=== PATIENT | female | born 1970 | race Caucasian/White ===

== ENCOUNTER 2019-08-30 14:53 | Outpatient (CLI) | payer MEDICARE, MEDICAID, SELFPAY | END 2019-08-30 14:54 | disposition home or self-care (01) | LOC: RADWPI 08-31 15:17 | PROVIDERS: Family Provider Family Medicine; PCP Family Medicine; Visit Provider Nurse Practitioner | DX: M19.011 Primary osteoarthritis, right shoulder (principal); M25.511 Pain in right shoulder | CPT/HCPCS: 99214 ==

== ENCOUNTER 2019-09-07 13:02 | Outpatient (CLI) | payer MEDICARE, MEDICAID, SELFPAY ==
--- NOTE | 2019-09-07 13:13 | XR_ITS ---
WS: [id number] SHOULDER RIGHT TECHNIQUE: 3 views of the right shoulder CLINICAL INFORMATION: Pain rt. shoulder with movement/ Decreased range of motion COMPARISON: None. FINDINGS: Normal acromioclavicular joint. Normal glenohumeral joint. Acromion is normal in appearance. Normal g lenoid. No evidence of acute fracture dislocation. XR/XR shoulder RT min 2V* [id number] IMPRESSION: Normal right shoulder.
--- NOTE | 2019-09-07 13:21 | MR_ITS ---
WS: [id number] MRI RIGHT SHOULDER NONCONTRAST TECHNIQUE: Sagittal T2, coronal T1, T2 and proton density imaging. Axial gradient PDE imaging. CLINICAL INFORMATION: Pain rt. shoulder with movement/ Decreased range of motion COMPARISON: MRI 5 FINDINGS: Images moderately degraded by patient motion. Moderate degenerative arthritis at the AC joint with ed darien. Mild downsloping of the acromion. Small amount of subacromial/subdeltoid fluid. Tendinopathy in the supraspinatus. Infraspinatus is normal. Normal teres minor. Mild thinning of the subscapularis di stally. No full-thickness rotator cuff tears. Normal biceps labral anchor. Chronic-appearing fraying of the glenoid labrum. Labrum appears grossly intact considering motion artifact Degenerative arthritis and edema at the AC joint is increased since 2016. Otherwise no significant ch anges since the prior MRI. MR/MR shoulder RT wo con* [id number] IMPRESSION: 1. Moderate degenerative arthritis at the AC joint with edema increased since 2016. Small amount of subacromial/subdeltoid fluid. 2. Mild tendinopathy in the distal supraspinatus. 3. Chronic appearing thinning of the subscapularis tendon distally. Rotator cu ff is otherwise intact. 4. Normal biceps tendon in the bicipital groove. 5. Labrum appears grossly intact. 6. Images degraded by patient motion.
== END 2019-09-07 13:03 | disposition home or self-care (01) ==
LOC: RADWPI 13:04
PROVIDERS: Family Provider Family Medicine; PCP Family Medicine; Visit Provider Nurse Practitioner
DX: M19.011 Primary osteoarthritis, right shoulder (principal); M25.511 Pain in right shoulder
CPT/HCPCS: 73030; 73221

== ENCOUNTER → 2019-10-25 09:30 | Outpatient (BNVA) | payer MEDICARE, MEDICAID, SELFPAY | PROVIDERS: Family Provider Family Medicine; PCP Family Medicine; Visit Provider Nurse Practitioner | DX: G89.29 Other chronic pain (principal); M54.16 Radiculopathy, lumbar region; M48.061 Spinal stenosis, lumbar region without neurogenic claudication; G25.81 Restless legs syndrome; M25.511 Pain in right shoulder; F17.210 Nicotine dependence, cigarettes, uncomplicated; Z79.891 Long term (current) use of opiate analgesic; Z71.6 Tobacco abuse counseling | CPT/HCPCS: 99214 ==

== ENCOUNTER 2019-11-07 08:18 | Outpatient (CLI) | payer MEDICARE, MEDICAID, SELFPAY ==
--- NOTE | 2019-11-07 08:42 | MM_ITS ---
WS: [id number] BILATERAL DIGITAL SCREENING MAMMOGRAPHY WITH CAD CLINICAL INFORMATION: SCREENING HISTORY: Screening mammogram. No current complaints. COMPARISON: November 29, 2014 TECHNIQUE: Bilateral CC and MLO views. FINDINGS: Scattered fibroglandular densities bilaterally. Lucent centered calcifications. Punctate calcificatio ns. No suspicious focal mass, asymmetry, calcifications, or architectural distortion. No evidence of malignancy. MM/[place] [id number] IMPRESSION: BI-RADS: 2-Benign FOLLOW UP: 1 Year Follow-up Recommend return to annual screening mammography.
== END 2019-11-07 08:19 | disposition home or self-care (01) ==
LOC: RADSHAW 08:19
PROVIDERS: Family Provider Family Medicine; PCP Family Medicine; Visit Provider Family Medicine
DX: Z12.31 Encounter for screening mammogram for malignant neoplasm of breast (principal)
CPT/HCPCS: 77067

== ENCOUNTER → 2019-11-13 13:24 | Outpatient (BNVA) | payer MEDICARE, MEDICAID, SELFPAY | PROVIDERS: Family Provider Family Medicine; PCP Family Medicine; Visit Provider Nurse Practitioner | DX: F41.1 Generalized anxiety disorder (principal); F33.41 Major depressive disorder, recurrent, in partial remission | CPT/HCPCS: 99213 ==

== ENCOUNTER 2019-12-27 22:17 | Emergency (ER) | payer MEDICARE, MEDICAID, SELFPAY ==
[2019-12-27 22:33] VITALS: BP 185/75; PULSE 81; RESP 18; TEMP 35.6; O2SAT 98; BMI 38.8
--- NOTE | 2019-12-27 22:42 | ED_ITS ---
HPI - Allergic Reaction General: Chief complaint: Allergic Reaction Stated complaint: rash Time Seen by Provider: 12/27/19 22:36 History of Present Illness: HPI narrative: Patient is a 49-year-old female comes to the ED with a rash. Patient states that yesterday she used a new tanning lotion. After applying tanning lotion she broke out in hives and has an itchy rash. Rash is only on areas of the skin that she placed tanning lotion on. The areas that are affected by the rash are right and left upper and lower extremities and including the hands. Denies any lip or tongue swelling or shortness of breath and scratchy throat or throat swelling. Associated symptoms: Deny abdominal pain, nausea or vomiting Review of Systems Const: Denies: fever, chills or fatigue Eyes: Denies: change in vision or eye discomfort ENMT: Denies: throat pain, painful swallowing, nasal discharge or nasal congestion Card: Denies: chest pain, palpitations, edema, swelling of feet/ankles, shortness of breath on exertion or shortness of breath when lying down Resp: Denies: shortness of breath, productive cough or non-productive cough GI: Denies: abdominal pain, nausea, vomiting, diarrhea, constipation or blood in stool : Denies: flank pain, painful urination or blood in urine Musc: Denies: neck pain, back pain or extremity swelling Skin/Breast: Reports: rash (R & L upper and lower extremities. including the hands.) and itching; Denies: new lesion Neuro: Denies: headache, numbness in extremities or weakness in extremities [facility] ED PFSH: Medical History Arthritis Bilateral chronic knee pain Cervical disc disease Cervical radiculopathy Chronic lumbosacral pain DDD (degenerative disc disease), lumbar Encounter for long-term use of opiate analgesic Generalized anxiety disorder Localized pain of right shoulder joint Long-term use of high-risk medication Lumbar foraminal stenosis Lumbar radiculitis Major depressive disorder, recurrent, in partial remission Morbid obesity Neural foraminal stenosis of cervical spine Opioid contract exists Paresthesia and pain of both upper extremities Restless legs syndrome Risk for falls Smoker Spondylolisthesis, acquired Surgical History Hx of removal of cyst RIGHT HIP/ DR PINEDA S/P carpal tunnel release S/P cholecystectomy LAPAROSCOPIC 2010 S/P decompression of ulnar nerve DR PAUL 2008? LEFT SIDE S/P partial hysterectomy CANCER S/P shoulder surgery RIGHT Status post craniotomy 2003- SMALL TUMOR REMOVAL / DR PAUL Family History Family/Other Lung disease ASTHMA Other Anemia Clotting disorder Diabetes Heart disease Hypertension Kidney disease Stroke Denies family history of Anesthesia complication Bleeding disorder Social History Smoking and tobacco status: current every day smoker cigarettes [ Other cigarette details: 08/24 ppd ] Smoking risk assessment/counseling performed?: Yes Tobacco counseling given: counseling >3 minutes Alcohol intake: never Physical Exam Const: COMMON NORMALS: oriented x3 HENMT: COMMON NORMALS: normocephalic HEAD & SCALP: normocephalic MOUTH: oral and palatal mucosa normal THROAT: posterior oropharynx normal and uvula midline Neck/C-Spine: COMMON NORMALS: supple GENERAL: Yes normal visual inspection Resp: COMMON NORMALS: normal respiratory effort, no retractions, no use of accessory muscles and clear to auscultation bilaterally AUSCULTATION: clear to auscultation bilaterally Cardio: COMMON NORMALS: regular rate, regular rhythm, S1 normal heart sound, S2 normal heart sound, no gallops, no clicks, no murmurs and peripheral pulses 2+ throughout RATE: regular rate RHYTHM: regular rhythm HEART SOUNDS: S1 normal and S2 normal PERIPHERAL PULSES: pulses 2+ throughout GI: COMMON NORMALS: normal to inspection, nondistended, normoactive bowel sounds, soft to palpation, non-tender and no masses PALPATION: Yes soft : COMMON NORMALS: Yes no CVA tenderness BLADDER/KIDNEY EXAM: Yes no CVA tenderness Back/Pelvis: COMMON NORMALS: no CVA tenderness Extremity: NARRATIVE EXTREMITY EXAM: Patient is a 49-year-old female that has pruritic rash on both right and left upper and lower extremities. Neuro: COMMON NORMALS: oriented x3 and moves all extremities Skin: RASHES: rashes noted (Hives) Hives Rash type: Yes macule Rash location: Right and Left Upper and Lower extremities. Also on both hands. Rash distribution: Yes asymmetrical and Yes exposed areas (rash on areas pt applied new tanning lotion) Rash color: Yes red Rash surface: Yes dry and Yes raised Rash border: Yes indistinct Rash tenderness: Yes nontender Rash findings consistent with: Yes hives Course 2 Vital Signs: Vital signs: Vital Signs Temperature 96.0 F L 12/27/19 22:33 Pulse Rate 63 12/28/19 00:15 Respiratory Rate 16 12/28/19 00:15 Blood Pressure 159/84 12/28/19 00:15 Pulse Oximetry 100 12/28/19 00:15 MDM - Allergic Reaction MDM Narrative: Medical decision making narrative: Patient is a 49-year-old female comes to the ED with hives. Patient says she has sensitive skin and used in tanning lotion that she has never used before and after applying lotion those areas broke out in pruritic hives. Patient had no lip, tongue or throat swelling or trouble breathing. Patient was given hydroxyzine p.o. and dexamethasone IM to help with rash while here in the ED. Patient was discharged and told to continue taking Zyrtec during the day and I also provided her prescription for prednisone. Patient was told to follow-up with PCP in 7 days for reevaluation. I informed her not to use that tanning lotion again. Patient understood and agreed with plan. Discharge Plan Discharge Patient Disposition: Home, Self-Care Clinical Impression: Hives Condition: Stable Prescriptions: New prednisone 50 mg tablet 50 mg PO DAILY 3 Days Qty: 3 RF: 0 No Action fluticasone propion-salmeterol [Advair Diskus] 100-50 mcg/dose blister with device 1 puff INHALATION BID RF: 0 Prilosec OTC 20 mg tablet,delayed release (DR/EC) 20 mg PO BID RF: 0 metoprolol succinate 50 mg tablet extended release 24 hr 50 mg PO BID RF: 0 lisinopril-hydrochlorothiazide 20-12.5 mg tablet 1 tab PO DAILY RF: 0 cetirizine 10 mg tablet 10 mg PO DAILY RF: 0 epinephrine [EpiPen 2-Boo] 0.3 mg/0.3 mL auto-injector 0.3 mg IM ONCE PRN (Reason: Allergic Reaction) RF: 0 diphenhydramine HCl [Benadryl Allergy] 25 mg tablet 25 mg PO . NEEDED RF: 0 docusate sodium [Stool Softener] 100 mg capsule 100 mg PO . NEEDED RF: 0 Multiple Vitamin, Womens Tablet 1 tab PO DAILY RF: 0 nitroglycerin 0.4 mg tablet, sublingual 0.4 mg SUBLINGUAL Q5M PRN (Reason: Chest Pain) RF: 0 albuterol sulfate [Ventolin HFA] 90 mcg/actuation HFA aerosol inhaler 1 puff INHALATION ONCE PRN (Reason: Shortness Of Breath) RF: 0 Victoza 2-Boo 0.6 mg/0.1 mL (18 mg/3 mL) pen injector 0.6 mg SUBCUT DIRECTED RF: 0 metformin 500 mg tablet 1,000 mg PO DAILY RF: 0 rosuvastatin [Crestor] 40 mg tablet 40 mg PO .HS RF: 0 Incruse Ellipta 62.5 mcg/actuation blister with device 1 inh INHALATION Q24H RF: 0 oxycodone 10 mg tablet 10 mg PO Q4H PRN (Reason: pain) 30 Days Qty: 180 RF: 0 Hold Instructions: Home Medication placed on hold at Doctor's office gabapentin 300 mg capsule 300 mg PO TID MDD 3 Qty: 90 RF: 1 oxycodone 10 mg tablet 10 mg PO .6 times a day PRN (Reason: pain) 30 Days Qty: 180 RF: 0 desvenlafaxine succinate [Pristiq] 100 mg tablet extended release 24 hr 200 mg PO DAILY Qty: 60 RF: 2 Mirapex 0.75 mg tablet 0.75 mg PO .at bedtime RF: 0 Discharge Orders: Discharge Order (Routine); Ordered 12/27/19 Ordered By: Zoltan Solorzano Referrals: Roe Shoemaker MD [Primary Care Provider] - Discharge Diet: Regular Discharge Activity: Resume usual activity Patient Instructions: Urticaria (ED) Activity Restrictions/Additional Instructions: Follow-up with your PCP in the next 7 to 10 days for reevaluation. Continue taking all your previously prescribed home meds. Continue taking your Zyrtec daily and this should also help with rash and itching. Take prednisone as prescribed to help with rash. Avoid using lotion product that caused reaction. Discharge Date/Time: 12/28/19 00:17 Coding Level of Care Code ED Pressure Dispatcher for Melvig Fwd Exam Comprehensive
[2019-12-27] MEDS: hyDROXYzine 25 mg Capsule 50 MG PO (23:08)
--- NOTE | 2019-12-27 23:20 | PC.NURSE ---
care and report given to Zoltan ARIZAlost charge card clerk
[2019-12-28] MEDS: dexamethasone 10 mg/mL INJ IM (00:05)
[2019-12-28 00:15] VITALS: BP 159/84; PULSE 63; RESP 16; O2SAT 100
== END 2019-12-28 00:17 | disposition home or self-care (01) ==
PROVIDERS: Emergency Provider Physician Assistant; PCP Family Medicine
DX: L50.9 Urticaria, unspecified (principal); F17.210 Nicotine dependence, cigarettes, uncomplicated
CPT/HCPCS: 12345; 96372; 99282; 99283; J1100

== ENCOUNTER → 2020-01-26 11:18 | Outpatient (BNVA) | payer MEDICARE, MEDICAID, SELFPAY | PROVIDERS: PCP Family Medicine; Visit Provider Anesthesiology | DX: G89.29 Other chronic pain (principal); M48.061 Spinal stenosis, lumbar region without neurogenic claudication; M54.16 Radiculopathy, lumbar region; M51.36 Other intervertebral disc degeneration, lumbar region; M54.12 Radiculopathy, cervical region; M50.90 Cervical disc disorder, unspecified, unspecified cervical region; M99.81 Other biomechanical lesions of cervical region; M43.10 Spondylolisthesis, site unspecified; M19.90 Unspecified osteoarthritis, unspecified site; F17.210 Nicotine dependence, cigarettes, uncomplicated; Z79.891 Long term (current) use of opiate analgesic; Z71.6 Tobacco abuse counseling | CPT/HCPCS: 99214 ==

== ENCOUNTER → 2020-02-05 07:36 | Outpatient (BNVA) | payer MEDICARE, MEDICAID, SELFPAY | PROVIDERS: PCP Family Medicine; Visit Provider Nurse Practitioner | DX: F33.41 Major depressive disorder, recurrent, in partial remission (principal); F41.1 Generalized anxiety disorder | CPT/HCPCS: 99213 ==

== ENCOUNTER → 2020-04-04 09:36 | Outpatient (BNVA) | payer MEDICARE, MEDICAID, SELFPAY | PROVIDERS: PCP Family Medicine; Visit Provider Nurse Practitioner | DX: G89.29 Other chronic pain (principal); M54.42 Lumbago with sciatica, left side; M54.41 Lumbago with sciatica, right side; M48.061 Spinal stenosis, lumbar region without neurogenic claudication; M54.16 Radiculopathy, lumbar region; M70.62 Trochanteric bursitis, left hip; Y93.9 Activity, unspecified; G25.81 Restless legs syndrome; F17.210 Nicotine dependence, cigarettes, uncomplicated; Z79.891 Long term (current) use of opiate analgesic | CPT/HCPCS: 99213; 99214 ==

== ENCOUNTER → 2020-05-30 09:06 | Outpatient (BNVA) | payer MEDICARE, MEDICAID, SELFPAY | PROVIDERS: PCP Family Medicine; Visit Provider Anesthesiology | DX: G89.29 Other chronic pain (principal); M51.36 Other intervertebral disc degeneration, lumbar region; M48.061 Spinal stenosis, lumbar region without neurogenic claudication; M54.16 Radiculopathy, lumbar region; M70.62 Trochanteric bursitis, left hip; Y93.9 Activity, unspecified; M50.90 Cervical disc disorder, unspecified, unspecified cervical region; M54.12 Radiculopathy, cervical region; M43.10 Spondylolisthesis, site unspecified; M99.81 Other biomechanical lesions of cervical region; G25.81 Restless legs syndrome; F17.210 Nicotine dependence, cigarettes, uncomplicated; Z79.891 Long term (current) use of opiate analgesic | CPT/HCPCS: 99214 ==

== ENCOUNTER → 2020-06-21 07:32 | Outpatient (BNVA) | payer MEDICARE, MEDICAID, SELFPAY | PROVIDERS: PCP Family Medicine; Visit Provider Nurse Practitioner | DX: F33.41 Major depressive disorder, recurrent, in partial remission (principal); F41.1 Generalized anxiety disorder | CPT/HCPCS: 99213 ==

== ENCOUNTER → 2020-07-24 13:53 | Outpatient (BNVA) | payer MEDICARE, MEDICAID, SELFPAY | PROVIDERS: PCP Family Medicine; Visit Provider Anesthesiology | DX: G89.29 Other chronic pain (principal); M48.061 Spinal stenosis, lumbar region without neurogenic claudication; M54.16 Radiculopathy, lumbar region; M70.62 Trochanteric bursitis, left hip; G25.81 Restless legs syndrome; M50.90 Cervical disc disorder, unspecified, unspecified cervical region; M54.12 Radiculopathy, cervical region; M51.36 Other intervertebral disc degeneration, lumbar region; M99.81 Other biomechanical lesions of cervical region; Y93.9 Activity, unspecified; Z71.6 Tobacco abuse counseling; F17.210 Nicotine dependence, cigarettes, uncomplicated | CPT/HCPCS: 99214 ==

== ENCOUNTER → 2020-09-17 08:31 | Outpatient (BNVA) | payer MEDICARE, MEDICAID, SELFPAY | PROVIDERS: PCP Family Medicine; Visit Provider Nurse Practitioner | DX: F33.41 Major depressive disorder, recurrent, in partial remission (principal); F41.1 Generalized anxiety disorder | CPT/HCPCS: 99214 ==

== ENCOUNTER → 2020-09-24 09:50 | Outpatient (BNVA) | payer MEDICARE, MEDICAID, SELFPAY | PROVIDERS: PCP Family Medicine; Visit Provider Anesthesiology | DX: G89.29 Other chronic pain (principal); M48.061 Spinal stenosis, lumbar region without neurogenic claudication; M51.36 Other intervertebral disc degeneration, lumbar region; M54.16 Radiculopathy, lumbar region; G25.81 Restless legs syndrome; M70.62 Trochanteric bursitis, left hip; M25.561 Pain in right knee; M25.562 Pain in left knee; M50.90 Cervical disc disorder, unspecified, unspecified cervical region; M54.12 Radiculopathy, cervical region; Y93.9 Activity, unspecified | CPT/HCPCS: 99213 ==

== ENCOUNTER 2020-11-03 20:33 | Emergency (ER) | payer MEDICARE, MEDICAID, SELFPAY ==
[2020-11-03 20:41] VITALS: BP 158/86; PULSE 70; RESP 18; TEMP 36.8; O2SAT 98; BMI 37.3
--- NOTE | 2020-11-03 21:14 | XR_ITS ---
WS: [id number] [place] [id number] REASON FOR EXAM: fall injury FINDINGS: The examination is unchanged compared to previous examination 09/07/2019. No fracture or dislocation. Mild degenerative arthropathy in the acromioclavicular and glenohumeral joint. No soft tissue abnormality. Deformity of the lateral right second rib likely old healed fracture. XR/[place] [id number] IMPRESSION: No acute abnormality
--- NOTE | 2020-11-03 21:14 | XR_ITS ---
WS: [id number] XR shoulder RT min 2V* [id number] REASON FOR EXAM: fall injury FINDINGS: Examination unchanged compared to previous study 09/07/2019. No fracture or dislocation. Mild degenerative arthropathy in the glenohumeral and acromioclavicular joint. Deformity of the lateral right second rib compatible with old healed fracture. No soft tissue abnormality. XR/XR shoulder RT min 2V* [id number] IMPRESSION: No acute abnormality.
--- NOTE | 2020-11-03 21:15 | W.ED.FALL ---
HPI - Fall General: Chief Complaint: Fall Stated Complaint: Fall, injury to right shoulder/arm Time Seen by Provider: 11/03/20 21:08 Source: patient Mode of arrival: ambulatory Limitations: no limitations History of Present Illness: HPI Narrative: Patient tripped and fell landing against a handrail striking her right shoulder clavicle area. Patient has significant pain and discomfort to the right shoulder area. Patient denies any other concerns. Patient does have an abrasion to the left knee with some mild ecchymosis. Patient reports she was weightbearing and denies any pain or discomfort. Patient appears well. Patient has some chronic medical history including diabetes, depression, chronic pain syndrome. MD complaint: fall Place fall occurred: home Location of injury - extremities: Right: shoulder Severity: moderate Severity scale (1-10): 8 Review of Systems General: Reports: 10 or more systems reviewed and unremarkable except in HPI and below Musc: Reports: other (Right shoulder pain) [facility] ED PFSH: Medical History (Updated 11/03/20 @ 22:03 by DEEP Rosenberg) Arthritis Bilateral chronic knee pain Cervical disc disease Cervical radiculopathy Chronic lumbosacral pain DDD (degenerative disc disease), lumbar Encounter for long-term use of opiate analgesic Generalized anxiety disorder Localized pain of right shoulder joint Long-term use of high-risk medication Lumbar foraminal stenosis Lumbar radiculitis Major depressive disorder, recurrent, in partial remission Morbid obesity Neural foraminal stenosis of cervical spine Opioid contract exists Paresthesia and pain of both upper extremities Restless legs syndrome Risk for falls Smoker Spondylolisthesis, acquired Surgical History Hx of removal of cyst RIGHT HIP/ DR PINEDA S/P carpal tunnel release S/P cholecystectomy LAPAROSCOPIC 2010 S/P decompression of ulnar nerve DR PAUL 2008? LEFT SIDE S/P partial hysterectomy CANCER S/P shoulder surgery RIGHT Status post craniotomy 2003- SMALL TUMOR REMOVAL / DR PAUL Family History Family/Other Lung disease ASTHMA Other Anemia Clotting disorder Diabetes Heart disease Hypertension Kidney disease Stroke Denies family history of Anesthesia complication Bleeding disorder Social History (Updated 07/24/20 @ 15:13 by Poonam King LPN) Smoking and tobacco status: current every day smoker cigarettes [ Other cigarette details: 08/24 ppd ] Smoking risk assessment/counseling performed?: Yes Tobacco counseling given: counseling >3 minutes Alcohol intake: never History of recent travel: No Physical Exam Const: COMMON NORMALS: no acute distress and patient oriented x3 GENERAL APPEARANCE: cooperative HENMT: COMMON NORMALS: normocephalic and Normal external nose present HEAD & SCALP: normal to inspection and normocephalic NOSE: Normal external nose present MOUTH: Normal oral and palatal mucosa present Eye: GENERAL EYE: appearance normal, both eyes and all related structures Neck/C-Spine: COMMON NORMALS: full ROM Chest: COMMONS NORMALS: normal inspection of the chest Resp: COMMON NORMALS: normal respiratory effort EFFORT & INSPECTION: Yes able to speak in complete sentences Cardio: COMMON NORMALS: regular rate and regular rhythm RATE: regular rate RHYTHM: regular rhythm GI: COMMON NORMALS: non-tender Back/Pelvis: COMMON NORMALS: thoracic and lumbar spine normal to inspection Extremity: COMMON NORMALS: normal to inspection NARRATIVE EXTREMITY EXAM: Tenderness to the right clavicle, no obvious deformity, distal pulses and sensation is intact. Neuro: COMMON NORMALS: patient oriented x3 and moves all extremities Psych: COMMON NORMALS: mental status grossly normal and cooperative Skin: COMMON NORMALS: no rashes or lesions noted GENERAL SKIN EXAM: no rashes or lesions noted Course Vital Signs: Vital signs: Vital Signs Temperature 98.2 F 11/03/20 20:41 Pulse Rate 70 11/03/20 20:41 Respiratory Rate 18 11/03/20 20:41 Blood Pressure 158/86 11/03/20 20:41 Pulse Oximetry 98 11/03/20 20:41 MDM - Fall MDM Narrative: Medical decision making narrative: Patient comes in for evaluation of her right shoulder. Patient reports tripping and falling against a handrail. Patient has significant tenderness to the right anterior shoulder. No obvious deformity is noted. Distal pulses are intact. Patient is very guarded with movement. Also has noted an abrasion to the left knee with some mild ecchymosis and swelling. Patient is weightbearing. Patient appears well. Differential diagnosis includes fracture, sprain, contusion, dislocation. X-ray noted no obvious dislocation or fracture. Reviewed exam with patient with recommendations for treatment and follow-up. Patient was given 1 hydrocodone for her pain on initial evaluation. Patient reported understanding of care plan and need for follow-up or return to the ER. Discharge Plan Discharge Patient Disposition: Home Clinical Impression: Fall from slip, trip, or stumble Qualifiers: Encounter type: initial encounter Qualified Code(s): W01.0XXA - Fall on same level from slipping, tripping and stumbling without subsequent striking against object, initial encounter Contusion of right shoulder Qualifiers: Encounter type: initial encounter Qualified Code(s): S40.011A - Contusion of right shoulder, initial encounter Condition: Stable Prescriptions: No Action Prilosec OTC 20 mg tablet,delayed release (DR/EC) 20 mg PO BID RF: 0 metoprolol succinate 50 mg tablet extended release 24 hr 50 mg PO BID RF: 0 lisinopril-hydrochlorothiazide 20-12.5 mg tablet 1 tab PO DAILY RF: 0 cetirizine 10 mg tablet 10 mg PO DAILY RF: 0 epinephrine [EpiPen 2-Boo] 0.3 mg/0.3 mL auto-injector 0.3 mg IM ONCE PRN (Reason: Allergic Reaction) RF: 0 diphenhydramine HCl [Benadryl Allergy] 25 mg tablet 25 mg PO . NEEDED RF: 0 docusate sodium [Stool Softener] 100 mg capsule 100 mg PO . NEEDED RF: 0 Multiple Vitamin, Womens Tablet 1 tab PO DAILY RF: 0 nitroglycerin 0.4 mg tablet, sublingual 0.4 mg SUBLINGUAL Q5M PRN (Reason: Chest Pain) RF: 0 albuterol sulfate [Ventolin HFA] 90 mcg/actuation HFA aerosol inhaler 1 puff INHALATION ONCE PRN (Reason: Shortness Of Breath) RF: 0 Victoza 2-Boo 0.6 mg/0.1 mL (18 mg/3 mL) pen injector 0.6 mg SUBCUT DIRECTED RF: 0 metformin 500 mg tablet 1,000 mg PO DAILY RF: 0 rosuvastatin [Crestor] 40 mg tablet 40 mg PO .HS RF: 0 Incruse Ellipta 62.5 mcg/actuation blister with device 1 inh INHALATION Q24H RF: 0 oxycodone 10 mg tablet 10 mg PO Q4H PRN (Reason: pain) 30 Days Qty: 180 RF: 0 Hold Instructions: Home Medication placed on hold at Doctor's office glimepiride 4 mg tablet 4 mg PO DAILY RF: 0 desvenlafaxine succinate [Pristiq] 100 mg tablet extended release 24 hr 200 mg PO DAILY Qty: 180 RF: 0 gabapentin 300 mg capsule 300 mg PO TID MDD 3 Qty: 90 RF: 1 naproxen [EC-Naproxen] 500 mg tablet,delayed release (DR/EC) 500 mg PO BID Qty: 60 RF: 1 oxycodone 10 mg tablet 10 mg PO .6 times a day PRN (Reason: pain) 30 Days Qty: 180 RF: 0 oxycodone 10 mg tablet 10 mg PO .6 times a day PRN (Reason: pain) 30 Days Qty: 180 RF: 0 Mirapex 0.75 mg tablet 0.75 mg PO .at bedtime Qty: 30 RF: 1 Discharge Orders: Discharge ED (Routine); Ordered 11/03/20 Ordered By: Srinivas Le Referrals: Roe Shoemaker MD [Primary Care Provider] - Patient Instructions: Shoulder Sprain (ED), Opioid Safety Activity Restrictions/Additional Instructions: Activity as tolerated. Gentle range of motion exercises. Use acetaminophen or ibuprofen for further pain relief. Continue with routine medications as directed. Use ice packs to the area for further pain control. Follow-up with primary care for further instructions and recommendations. Return to the emergency department for new concerns. Coding Level of Care Code ED Assessment Technician for Armin Fwemil Exam Comprehensive
[2020-11-03] MEDS: HYDROcodone-acetaminophen 7.5-325 mg Tablet 1 TAB PO (21:34)
== END 2020-11-03 22:23 | disposition home or self-care (01) ==
PROVIDERS: Emergency Provider Nurse Practitioner Family; PCP Family Medicine
DX: S40.011A Contusion of right shoulder, initial encounter (principal); W01.198A Fall on same level from slipping, tripping and stumbling with subsequent striking against other object, initial encounter; F17.210 Nicotine dependence, cigarettes, uncomplicated
CPT/HCPCS: 73000; 73030; 99283

== ENCOUNTER → 2020-11-19 10:59 | Outpatient (BNVA) | payer MEDICARE, MEDICAID, SELFPAY | PROVIDERS: PCP Family Medicine; Visit Provider Anesthesiology | DX: G89.29 Other chronic pain (principal); M48.061 Spinal stenosis, lumbar region without neurogenic claudication; M54.16 Radiculopathy, lumbar region; M51.36 Other intervertebral disc degeneration, lumbar region; M70.62 Trochanteric bursitis, left hip; G25.81 Restless legs syndrome; M50.90 Cervical disc disorder, unspecified, unspecified cervical region; M54.12 Radiculopathy, cervical region; M99.81 Other biomechanical lesions of cervical region; F17.210 Nicotine dependence, cigarettes, uncomplicated; Z79.891 Long term (current) use of opiate analgesic; Y93.9 Activity, unspecified | CPT/HCPCS: 99214 ==

== ENCOUNTER → 2021-01-31 09:56 | Outpatient (BNVA) | payer MEDICARE, MEDICAID, SELFPAY | PROVIDERS: PCP Family Medicine; Visit Provider Anesthesiology | DX: G89.29 Other chronic pain (principal); M48.061 Spinal stenosis, lumbar region without neurogenic claudication; M54.16 Radiculopathy, lumbar region; M51.36 Other intervertebral disc degeneration, lumbar region; M50.90 Cervical disc disorder, unspecified, unspecified cervical region; M54.12 Radiculopathy, cervical region; M99.81 Other biomechanical lesions of cervical region; G25.81 Restless legs syndrome; F17.210 Nicotine dependence, cigarettes, uncomplicated; Z79.899 Other long term (current) drug therapy; Z71.6 Tobacco abuse counseling | CPT/HCPCS: 99214 ==

== ENCOUNTER 2021-02-06 15:01 | Outpatient (CLI) | payer MEDICARE, MEDICAID, SELFPAY ==
--- NOTE | 2021-02-06 15:12 | MM_ITS ---
WS: [id number] BILATERAL DIGITAL SCREENING MAMMOGRAPHY WITH CAD CLINICAL INFORMATION: SCREEN HISTORY: Screening mammogram. Palpable lump right breast COMPARISON: November 07, 2019 TECHNIQUE: Bilateral CC and MLO views. FINDINGS: Scattered fibroglandular densities bilaterally. Palpable marker upper inner right breast. No definite underlying mammographic abnormality. Recommend right diagnostic mammography and ultrasound in furthe r evaluation. Left breast appears unremarkable and unchanged. Punctate and lucent centered calcifications. A few in cidental intramammary lymph nodes. MM/[place] [id number] IMPRESSION: BI-RADS: 0-Incomplete: Need additional imaging evaluation FOLLOW UP: Need Additional Imaging PATIENT REPORTS NEW PALPABLE LUMP UPPER INNER RIGHT BREAST. RECOMMEND RIGHT RONA GNOSTIC MAMMOGRAPHY AND ULTRASOUND FOR FURTHER EVALUATION.
== END 2021-02-06 15:02 | disposition home or self-care (01) ==
LOC: RADSHAW 15:07
PROVIDERS: PCP Family Medicine; Visit Provider Family Medicine
DX: Z12.31 Encounter for screening mammogram for malignant neoplasm of breast (principal)
CPT/HCPCS: 77067

== ENCOUNTER → 2021-04-04 09:32 | Outpatient (BNVA) | payer MEDICARE, MEDICAID, SELFPAY | PROVIDERS: PCP Family Medicine; Visit Provider Anesthesiology | DX: G89.29 Other chronic pain (principal); M48.061 Spinal stenosis, lumbar region without neurogenic claudication; M54.16 Radiculopathy, lumbar region; M51.36 Other intervertebral disc degeneration, lumbar region; M50.90 Cervical disc disorder, unspecified, unspecified cervical region; M54.12 Radiculopathy, cervical region; G25.81 Restless legs syndrome; M43.10 Spondylolisthesis, site unspecified; F17.210 Nicotine dependence, cigarettes, uncomplicated; Z79.891 Long term (current) use of opiate analgesic | CPT/HCPCS: 99214 ==

== ENCOUNTER → 2021-05-30 09:27 | Outpatient (BNVA) | payer MEDICARE, MEDICAID, SELFPAY | PROVIDERS: PCP Family Medicine; Visit Provider Anesthesiology | DX: G89.29 Other chronic pain (principal); M48.061 Spinal stenosis, lumbar region without neurogenic claudication; M54.16 Radiculopathy, lumbar region; M51.36 Other intervertebral disc degeneration, lumbar region; M50.90 Cervical disc disorder, unspecified, unspecified cervical region; M54.12 Radiculopathy, cervical region; M43.10 Spondylolisthesis, site unspecified; M19.90 Unspecified osteoarthritis, unspecified site; F17.210 Nicotine dependence, cigarettes, uncomplicated; Z79.891 Long term (current) use of opiate analgesic | CPT/HCPCS: 99214 ==

== ENCOUNTER 2021-06-13 14:51 | Outpatient (CLI) | payer MEDICARE, MEDICAID, SELFPAY ==
--- NOTE | 2021-06-13 14:58 | MR_ITS ---
WS: [id number] MRI RIGHT SHOULDER NONCONTRAST TECHNIQUE: Sagittal T2, coronal T1, T2 and proton density imaging. Axial gradient PDE imaging. CLINICAL INFORMATION: FROZEN SHOULDER COMPARISON: MRI September 07, 2019 FINDINGS: Moderate degenerative arthritis AC joint with hypertrophic changes. Mild downsloping of the acromion with slight subacromial spurring. Small amount of subacromial/subdeltoid fluid. Mild tendinopathy in the distal supraspinatus. Normal infraspinatus. Normal teres minor. Subscapularis is normal. Normal biceps tendon in the bicipital groove. Degenerative fraying of the glenoid labrum. Normal bone marrow signal in the glenoid and humerus. Visually diminutive joint capsule with mild synovial thickening along the axillary recess. Increased T2 signal abnormality along the rotator interval. Findings can be seen with adhesive capsulitis in ap propriate clinical setting. MR/MR shoulder RT wo con* [id number] IMPRESSION: 1. Moderate degenerative arthritis AC joint with mild downsloping of the acrom ion. Small amount of subacromial/subdeltoid fluid. 2. Mild tendinopathy in the distal supraspinatus. Rotator cuff is otherwise un remarkable. 3. No high-grade rotator cuff tears. 4. Normal biceps tendon in the bicipital groove. 5. Visually diminutive joint capsule with mild synovial thickening along the a xillary recess. Increased T2 signal abnormality along the rotator interval. Fin dings can be seen with adhesive capsulitis in appropriate clinical setting.
== END 2021-06-13 14:52 | disposition home or self-care (01) ==
PROVIDERS: PCP Family Medicine; Visit Provider Family Medicine
DX: M75.01 Adhesive capsulitis of right shoulder (principal); M19.011 Primary osteoarthritis, right shoulder
CPT/HCPCS: 73221

== ENCOUNTER → 2021-07-29 12:13 | Outpatient (BNVA) | payer MEDICARE, MEDICAID, SELFPAY | PROVIDERS: PCP Family Medicine; Visit Provider Nurse Practitioner | DX: F33.41 Major depressive disorder, recurrent, in partial remission (principal); F41.1 Generalized anxiety disorder | CPT/HCPCS: 99214 ==

== ENCOUNTER → 2021-08-27 10:51 | Outpatient (BNVA) | payer MEDICARE, MEDICAID, SELFPAY | PROVIDERS: PCP Family Medicine; Visit Provider Anesthesiology | DX: G89.29 Other chronic pain (principal); M48.061 Spinal stenosis, lumbar region without neurogenic claudication; M54.16 Radiculopathy, lumbar region; M51.36 Other intervertebral disc degeneration, lumbar region; M54.12 Radiculopathy, cervical region; M50.90 Cervical disc disorder, unspecified, unspecified cervical region; G25.81 Restless legs syndrome; M43.10 Spondylolisthesis, site unspecified; F17.200 Nicotine dependence, unspecified, uncomplicated; Z79.899 Other long term (current) drug therapy; Z79.891 Long term (current) use of opiate analgesic | CPT/HCPCS: 99214 ==

== ENCOUNTER 2021-09-05 09:20 | Outpatient (CLI) | payer MEDICARE, MEDICAID, SELFPAY ==
--- NOTE | 2021-09-05 09:24 | CT_ITS ---
WS: [id number] LDCT LUNG CANCER SCREENING TECHNIQUE: Noncontrast CT of the chest with coronal and sagittal reformatted images. CLINICAL INFORMATION: NICOTINE DEPENDENCE, CIGARETTES COMPARISON: None. DLP: 49.04 mGy.cm DIvol: 1.[address] scans at [facility] use at least one of these dose optimization techniques: automat ed exposure control; mA and/or kV adjustment per patient size (includes targeted exams where dose is matched to clinical indication); or iterative reconstruction. FINDINGS: Both lungs are well aerated. No acute pulmonary infiltrates. Noncalcified subpleural nodule left uppe r lobe measuring 4 mm. Noncalcified nodule left upper lobe measuring 3.4 mm. Additional hazy opacity at the left lung apex measuring 4.4 mm. Hazy opacity right upper lobe measuring 4 mm. Several small nodules and subpleural nodules right uppe r and lower lobe measuring 3 to 4 mm. Largest nodule right lower lobe posteriorly measuring 6 mm. No mediastinal or hilar lymphadenopathy. No axillary lymphadenopathy. Mild aortic calcification. CT/CT lung screening [id number] IMPRESSION: Recommend 3 month follow-up with particular attention to the right lower lobe 6 mm nodule LUNG-RADS: 4A-Probably Suspicious FOLLOW UP: 3 Month LDCT
== END 2021-09-05 09:21 | disposition home or self-care (01) ==
LOC: RAD 09:22
PROVIDERS: PCP Family Medicine; Visit Provider Family Medicine
DX: Z12.2 Encounter for screening for malignant neoplasm of respiratory organs (principal); F17.210 Nicotine dependence, cigarettes, uncomplicated
CPT/HCPCS: 71271

== ENCOUNTER → 2021-10-27 13:49 | Outpatient (BNVA) | payer MEDICARE, MEDICAID, SELFPAY | PROVIDERS: PCP Family Medicine; Visit Provider Internal Medicine Critical Care Medicine | DX: J44.9 Chronic obstructive pulmonary disease, unspecified (principal); R91.8 Other nonspecific abnormal finding of lung field; F17.210 Nicotine dependence, cigarettes, uncomplicated | CPT/HCPCS: 99204 ==

== ENCOUNTER → 2021-11-19 11:10 | Outpatient (BNVA) | payer MEDICARE, MEDICAID, SELFPAY | PROVIDERS: PCP Family Medicine; Visit Provider Podiatrist Foot & Ankle Surgery | DX: M79.671 Pain in right foot (principal) | CPT/HCPCS: 73630 ==

== ENCOUNTER → 2021-12-01 11:11 | Outpatient (BNVA) | payer MEDICARE, MEDICAID, SELFPAY | PROVIDERS: PCP Family Medicine; Visit Provider Nurse Practitioner | DX: F33.41 Major depressive disorder, recurrent, in partial remission (principal); F41.1 Generalized anxiety disorder | CPT/HCPCS: 99214 ==

== ENCOUNTER 2021-12-09 10:33 | Outpatient (CLI) | payer MEDICARE, MEDICAID, SELFPAY ==
--- NOTE | 2021-12-09 13:31 | PFTS_ITS ---
Date of Study:12/09/21 Date of Dictation: MECHANICS: Forced vital capacity (FVC) is normal. Forced expiratory volume in one second (FEV1) is normal. FEV1/FVC is normal. FLOW VOLUME LOOP: Normal. LUNG VOLUMES: Total lung capacity (TLC) is normal. Residual volume (RV) is normal. DIFFUSING CAPACITY FOR CARBON MONOXIDE: Normal. INTERPRETATION: The pulmonary function tests are normal. MTDD
== END 2021-12-09 10:34 | disposition home or self-care (01) ==
LOC: RT 10:34
PROVIDERS: PCP Family Medicine; Visit Provider Internal Medicine Critical Care Medicine
DX: J44.9 Chronic obstructive pulmonary disease, unspecified (principal); F17.210 Nicotine dependence, cigarettes, uncomplicated
CPT/HCPCS: 94010; 94726; 94729

== ENCOUNTER 2021-12-29 12:16 | Outpatient (CLI) | payer MEDICARE, MEDICAID, SELFPAY ==
--- NOTE | 2021-12-29 12:26 | CT_ITS ---
WS: [id number] LDCT LUNG CANCER SCREENING TECHNIQUE: Noncontrast CT of the chest with coronal and sagittal reformatted images. CLINICAL INFORMATION: Lung nodule COMPARISON: None. DLP: 74.91 mGy.cm DIvol: Mean CTDIvol: 1.60 (mGy) All CT scans at [facility] use at least one of these dose optimization techniques: automat ed exposure control; mA and/or kV adjustment per patient size (includes targeted exams where dose is matched to clinical indication); or iterative reconstruction. FINDINGS: Numerous bilateral noncalcified tiny pulmonary nodules appear stable compared to previous. Largest RI GHT lower lobe 6 mm pulmonary nodule is stable. Recommend 6 month follow-up. Remainder of the tiny pu lmonary nodules measuring 3 to 4 mm are stable. No new suspicious pulmonary parenchymal abnormalities . Mild aortic calcification. Normal caliber thoracic aorta. No axillary lymphadenopathy. Adrenal glands are normal. Normal GE junction. Mild thoracic curve and kyphosis. CT/CT lung screening [id number] IMPRESSION: LUNG-RADS: 3-Probably Benign FOLLOW UP: 6 Month LDCT
== END 2021-12-29 12:17 | disposition home or self-care (01) ==
PROVIDERS: PCP Family Medicine; Visit Provider Internal Medicine Critical Care Medicine
DX: Z12.2 Encounter for screening for malignant neoplasm of respiratory organs (principal); R91.8 Other nonspecific abnormal finding of lung field
CPT/HCPCS: 71271

== ENCOUNTER → 2022-01-08 09:34 | Outpatient (BNVA) | payer MEDICARE, MEDICAID, SELFPAY | PROVIDERS: PCP Family Medicine; Visit Provider Internal Medicine Critical Care Medicine | DX: R91.8 Other nonspecific abnormal finding of lung field (principal); F17.210 Nicotine dependence, cigarettes, uncomplicated; J42 Unspecified chronic bronchitis | CPT/HCPCS: 99214 ==

== ENCOUNTER → 2022-02-10 14:36 | Outpatient (BNVA) | payer MEDICARE, MEDICAID, SELFPAY | PROVIDERS: PCP Family Medicine; Referring Provider Family Medicine; Visit Provider Orthopaedic Surgery | DX: M72.0 Palmar fascial fibromatosis [Dupuytren] (principal); G56.22 Lesion of ulnar nerve, left upper limb; M79.642 Pain in left hand | CPT/HCPCS: 73130; 99203 ==

== ENCOUNTER → 2022-02-18 13:19 | Outpatient (BNVA) | payer MEDICARE, MEDICAID, SELFPAY | PROVIDERS: PCP Family Medicine; Visit Provider Podiatrist Foot & Ankle Surgery | DX: M20.41 Other hammer toe(s) (acquired), right foot (principal); M20.42 Other hammer toe(s) (acquired), left foot; E11.42 Type 2 diabetes mellitus with diabetic polyneuropathy; M21.621 Bunionette of right foot; M21.622 Bunionette of left foot; M21.611 Bunion of right foot; M21.612 Bunion of left foot | CPT/HCPCS: 99214 ==

== ENCOUNTER 2022-02-19 15:51 | Emergency (ER) | payer MEDICARE, MEDICAID, SELFPAY ==
[2022-02-19 16:16] VITALS: BP 139/83; PULSE 78; RESP 16; TEMP 36.3; O2SAT 96; BMI 38.5
--- NOTE | 2022-02-19 16:32 | W.ED.EYEPROB ---
HPI - Eye Problem General: Chief complaint: Skin/Abscess/Foreign Body Stated complaint: fb in right eye Time Seen by Provider: 02/19/22 16:26 Source: patient Mode of arrival: ambulatory Limitations: no limitations History of Present Illness: Patient is a 51-year-old female who presents to ED today with a complaint of a foreign body sensation to her right eye that she states she awoke with. No known injury or trauma. She is not having any drainage from the eye. She denies any activities the day before that could have caused a foreign body. Patient is not having any visual changes. chief complaint: eye pain and foreign body Onset (ago): hour(s) Onset description: awoke with symptoms Duration: constant Location: right eye Eye Symptoms: redness, pain and foreign body sensation Place: home Mechanism: none Associated symptoms: Reports no associated symptoms Treatments Prior to Arrival: none Related Data: Patient tetanus UTD: Yes Review of Systems Eyes: Reports: photophobia, eye discomfort and eye redness; Denies: change in vision, blurry vision, blind spots, eye discharge, yellow eyes, floaters or seeing flashes PFSH ED PFSH: Medical History Arthritis Bilateral chronic knee pain Cervical disc disease Cervical radiculopathy Chronic lumbosacral pain DDD (degenerative disc disease), lumbar Encounter for long-term use of opiate analgesic Generalized anxiety disorder Localized pain of right shoulder joint Long-term use of high-risk medication Lumbar foraminal stenosis Lumbar radiculitis Major depressive disorder, recurrent, in partial remission Morbid obesity Neural foraminal stenosis of cervical spine Opioid contract exists Paresthesia and pain of both upper extremities Psychiatric care Restless legs syndrome Risk for falls Smoker Spondylolisthesis, acquired Surgical History Hx of removal of cyst RIGHT HIP/ DR PINEDA S/P carpal tunnel release S/P cholecystectomy LAPAROSCOPIC 2010 S/P decompression of ulnar nerve DR PAUL 2008? LEFT SIDE S/P partial hysterectomy CANCER S/P shoulder surgery RIGHT Status post craniotomy 2003- SMALL TUMOR REMOVAL / DR PAUL Family History Family/Other Lung disease ASTHMA Other Anemia Clotting disorder Diabetes Heart disease Hypertension Kidney disease Stroke Denies family history of Anesthesia complication Bleeding disorder Social History Smoking and tobacco status: current every day smoker (1ppd X 36 years, Started at age 15) cigarettes Packs smoked per day: 1 Years cigarettes smoked: 36 [ Other cigarette details: Started at age 15] Smoking risk assessment/counseling performed?: Yes Tobacco counseling given: counseling >3 minutes Alcohol intake: never History of recent travel: No Female Reproductive History: Date of last menstrual period: 08/23/99 Physical Exam Const: COMMON NORMALS: no acute distress, patient oriented x3, no limitations and alert HENMT: FACE & SINUS: normal facial exam Eye: COMMON NORMALS: Equal, round and reactive pupils present and EOMs intact bilaterally GENERAL EYE: normal light reflex VISUAL ACUITY: Yes acuity normal VISUAL [place]: No peripheral vision loss and No central vision loss ALIGNMENT: Yes alignment normal PERIORBITAL: periorbital findings normal EYELID: eyelids normal CONJUNCTIVA: Yes conjunctival abnormal (R injection) SCLERA: sclerae normal CORNEA: Yes fluorescein used (inferior R corneal abrasion) PUPIL: Yes Equal, round and reactive pupils present DIRECT OPHTHALMOSCOPY: Yes normal light reflex Neuro: COMMON NORMALS: patient oriented x3 SENSORIUM/ORIENTATION: Yes alert Course Vital Signs: Vital signs: Vital Signs Temperature 97.4 F L 02/19/22 16:16 Pulse Rate 78 02/19/22 16:16 Respiratory Rate 16 02/19/22 16:16 Blood Pressure 139/83 02/19/22 16:16 Pulse Oximetry 96 02/19/22 16:16 MDM - Eye Problem Medical Decision Making Patient with a right corneal abrasion. She will be placed on erythromycin and recommend follow-up with PCP or her garage door opener installer Dr. Shaw in 3 to 5 days if symptoms do not seem to be improving. She needs to return to the emergency department immediately for any visual changes/visual loss, extreme photophobia, eye discharge or drainage, or any other concerns she may have. Discharge Plan Discharge Patient Disposition: Home Clinical Impression: Abrasion of right cornea Qualifiers: Encounter type: initial encounter Qualified Code(s): S05.01XA - Injury of conjunctiva and corneal abrasion without foreign body, right eye, initial encounter Condition: Stable Prescriptions: New erythromycin 5 mg/gram (0.5 %) ointment 1 applic ophthalmic (eye) Q4H 7 Days Qty: 1 0RF No Action Prilosec OTC 20 mg tablet,delayed release (DR/EC) 20 mg PO BID 0RF metoprolol succinate 50 mg tablet extended release 24 hr 50 mg PO BID 0RF lisinopril-hydrochlorothiazide 20-12.5 mg tablet 1 tab PO DAILY 0RF cetirizine 10 mg tablet 10 mg PO DAILY 0RF epinephrine [EpiPen 2-Boo] 0.3 mg/0.3 mL auto-injector 0.3 mg IM ONCE PRN (Reason: Allergic Reaction) 0RF diphenhydramine HCl [Benadryl Allergy] 25 mg tablet 25 mg PO . NEEDED 0RF docusate sodium [Stool Softener] 100 mg capsule 100 mg PO . NEEDED 0RF Multiple Vitamin, Womens Tablet 1 tab PO DAILY 0RF nitroglycerin 0.4 mg tablet, sublingual 0.4 mg SUBLINGUAL Q5M PRN (Reason: Chest Pain) 0RF albuterol sulfate [Ventolin HFA] 90 mcg/actuation HFA aerosol inhaler 1 puff INHALATION ONCE PRN (Reason: Shortness Of Breath) 0RF metformin 500 mg tablet 1,000 mg PO DAILY 0RF rosuvastatin [Crestor] 40 mg tablet 40 mg PO .HS 0RF Jardiance 25 mg tablet 25 mg PO DAILY 0RF glimepiride 4 mg tablet 4 mg PO DAILY 0RF Spiriva Respimat 2.5 mcg/actuation mist 2 puff inhalation BID 0RF Label Comments: pt no longer taking Rybelsus 3 mg tablet 14 mg PO DAILY 0RF gabapentin 300 mg capsule 300 mg PO TID MDD 3 Qty: 90 1RF Mirapex 0.75 mg tablet 0.75 mg PO .at bedtime 30 Days 1RF desvenlafaxine succinate [Pristiq] 100 mg tablet extended release 24 hr 200 mg PO DAILY Qty: 180 0RF oxycodone 10 mg tablet 10 mg PO BID PRN (Reason: pain) 0RF (DME) Diabetic Shoes with 3 sets of insoles See Rx Instructions .Route .MEDSUPPLY Qty: 1 0RF Rx Instructions: As directed by HOME Discharge Orders: Discharge ED (Routine); Ordered 02/19/22 Ordered By: Charo Townsend Referrals: Roe Shoemaker MD [Primary Care Provider] - Patient Instructions: Corneal Abrasion (DC) Coding Level of Care Code ED Machine Cutter for Armin Lai
--- NOTE | 2022-02-19 16:59 | PC.NURSE ---
SEE PROVIDERS NOTE
[2022-02-19] MEDS: eye irrigation 30 mL Btl EYE-RIGHT (17:07)
[2022-02-19] MEDS: erythromycin Op Oint 1 gm 1 APPLIC EYE-RIGHT (17:08)
[2022-02-19] MEDS: tetracaine 0.5% Op Soln 4 mL Btl 1 DROP EYE-RIGHT (17:08)
[2022-02-19] MEDS: fluorescein 1 mg Strip EYE-RIGHT (17:08)
== END 2022-02-19 17:09 | disposition home or self-care (01) ==
PROVIDERS: Emergency Provider Physician Assistant; PCP Family Medicine
DX: S05.01XA Injury of conjunctiva and corneal abrasion without foreign body, right eye, initial encounter (principal); Z79.84 Long term (current) use of oral hypoglycemic drugs; F17.210 Nicotine dependence, cigarettes, uncomplicated; X58.XXXA Exposure to other specified factors, initial encounter
CPT/HCPCS: 99283

== ENCOUNTER → 2022-04-14 13:11 | Outpatient (BNVA) | payer MEDICARE, MEDICAID, SELFPAY | PROVIDERS: PCP Family Medicine; Visit Provider Orthopaedic Surgery | DX: M75.01 Adhesive capsulitis of right shoulder (principal) | CPT/HCPCS: 99213 ==

== ENCOUNTER 2022-04-20 12:40 | Outpatient (CLI) | payer MEDICARE, MEDICAID, SELFPAY ==
--- NOTE | 2022-04-20 13:03 | MM_ITS ---
WS: [id number] BILATERAL 3D TOMOSYNTHESIS DIGITAL SCREENING MAMMOGRAPHY WITH CAD CLINICAL INFORMATION: SCREENING HISTORY: Screening mammogram. Chronic lumps. COMPARISON: February 06, 2021 TECHNIQUE: Bilateral CC and MLO views. FINDINGS: Scattered fibroglandular densities bilaterally. Punctate and lucent centered calcifications. Dystroph ic calcifications. Stable intramammary lymph nodes RIGHT breast. No suspicious focal mass, asymmetry, calcifications, or architectural distortion. No evidence of malignancy. MM/[place] [id number] IMPRESSION: BI-RADS: 2-Benign FOLLOW UP: 1 Year Follow-up Recommend return to annual screening mammography.
== END 2022-04-20 12:41 | disposition home or self-care (01) ==
PROVIDERS: PCP Family Medicine; Visit Provider Family Medicine
DX: Z12.31 Encounter for screening mammogram for malignant neoplasm of breast (principal)
CPT/HCPCS: 77063; 77067

== ENCOUNTER → 2022-05-20 13:21 | Outpatient (BNVA) | payer MEDICARE, MEDICAID, SELFPAY | PROVIDERS: PCP Family Medicine; Visit Provider Podiatrist Foot & Ankle Surgery | DX: M21.611 Bunion of right foot (principal); M21.612 Bunion of left foot; M20.41 Other hammer toe(s) (acquired), right foot; E11.42 Type 2 diabetes mellitus with diabetic polyneuropathy; M21.621 Bunionette of right foot; M21.622 Bunionette of left foot; M20.42 Other hammer toe(s) (acquired), left foot; Z79.84 Long term (current) use of oral hypoglycemic drugs | CPT/HCPCS: 73630; 99214; 99215 ==

== ENCOUNTER 2022-06-05 07:37 | Day surgery (SDC) | payer MEDICARE, MEDICAID, SELFPAY ==
[2022-06-04 08:45] VITALS: BMI 38.5
--- NOTE | 2022-06-05 | XR_ITS ---
WS: [id number] INTRAOPERATIVE TECHNIQUE: 7 Spot fluoroscopic images for intraoperative purposes. FLUOROSCOPY TIME: 7 seconds CLINICAL INFORMATION: left tailors bunionectomy COMPARISON: None. FINDINGS: Intraoperative Robina's bunionectomy. Localization marker projected over the head of the 5th metatars al with osteotomy and plate with screw fixation. XR/XR foot LT min 3V* [id number] IMPRESSION: Images obtained for intraoperative purposes.
--- NOTE | 2022-06-05 | SCC_ITS ---
Procedure done: Left tailor's bunionectomy. CPT 82462 7 seconds of fluoroscopic guidance, for a cumulative dose of 0.02 mGy, was provided to Dr. Greene by the radiology department. C-arm images of the LEFT foot were saved for the patient's permanent record. MTDD
[2022-06-05 08:00] VITALS: BP 135/86; PULSE 79; RESP 16; TEMP 36.3; O2SAT 94
[2022-06-05] MEDS: sodium chloride 0.9% 1,000 ML 30 ML IV (08:13)
[2022-06-05 08:20] LABS: Glucose Point of Care 222 mg/dL (70-110)
--- NOTE | 2022-06-05 08:41 | ANES.PREANE2 ---
Pre-Anesthetic Assessment Height/Weight: Height 1.73 m Weight 114.759 kg Temp Pulse Resp BP Pulse Ox O2 Del Method 97.3 F L 79 16 135/86 94 06/05/22 08:00 06/05/22 08:00 06/05/22 08:00 06/05/22 08:00 06/05/22 08:00 06/05/22 08:00 Preop Diagnosis: Tailor's bunion left foot Operation Date: 06/05/22 09:10 Proposed Procedures p Left tailor's bunionectomy 06511,M21.622(Left) - Michele Greene DPM Familial anesthetic complications: None Was Beta Heidy taken within 24 hours: N/A Was Clonidine taken within 24 hours: N/A Last intake: Intake Last Liquid Date 06/04/22 Last Liquid Time 23:00 Last Solid Date 06/04/22 Last Solid Time 18:00 Social Tobacco and No alcohol Exam alert, oriented x 3, clear to auscultation bilaterally and regular rate & rhythm Airway Mallampati: Class III Dentition: false Pulmonary Patient has occassional inhaler use; Hx of COPD/bronchitis noted, but PFTs performed WNL CV/HEM Hypertension GI Gastroesophageal Reflux Disease (not currently experiencing GERD today) Metabolic Diabetes Mellitus, Hyperlipidemia and Morbid Obesity Anesthetic Plan ASA status: 3 Anesthesia: MAC Risk of > 500 ml blood loss (7ml/kg in children): No Medications/Allergies Home Medications Medication Instructions Recorded Confirmed Last Taken Type albuterol sulfate 90 mcg/actuation 1 puff inhalation ONCE PRN 08/29/19 06/05/22 06/04/22 History aerosol inhaler (Ventolin HFA) Shortness Of Breath cetirizine 10 mg tablet 10 mg PO DAILY 08/29/19 06/05/22 06/04/22 History diphenhydramine HCl 25 mg tablet 25 mg PO . NEEDED 08/29/19 06/05/22 12/27/19 History (Benadryl Allergy) docusate sodium 100 mg capsule 100 mg PO . NEEDED 08/29/19 06/05/22 06/04/22 History (Stool Softener) epinephrine 0.3 mg/0.3 mL 0.3 mg IM ONCE PRN Allergic 08/29/19 06/05/22 12/27/19 History injection, auto-injector (EpiPen Reaction 2-Boo) lisinopril 20 2 tab PO DAILY 08/29/19 06/05/22 06/04/22 History mg-hydrochlorothiazide 12.5 mg tablet metformin 500 mg tablet 1,000 mg PO DAILY 08/29/19 06/05/22 06/04/22 History metoprolol succinate 50 mg 50 mg PO BID 08/29/19 06/05/22 06/05/22 History tablet,extended release 24 hr rzzqjbbagkgd-It-jbhi-minerals 1 tab PO DAILY 08/29/19 06/05/22 06/04/22 History (Multiple Vitamin, Womens tablet) nitroglycerin 0.4 mg sublingual 0.4 mg sublingual Q5M PRN Chest 08/29/19 06/05/22 Unknown History tablet Pain omeprazole magnesium 20 mg 20 mg PO BID 08/29/19 06/05/22 06/04/22 History tablet,delayed release (Prilosec OTC) rosuvastatin 40 mg tablet (Crestor) 40 mg PO .HS 08/29/19 06/05/22 06/04/22 History glimepiride 4 mg tablet 4 mg PO DAILY 05/30/20 06/05/22 06/04/22 History empagliflozin 25 mg tablet 25 mg PO DAILY 05/30/21 06/05/22 06/04/22 History (Jardiance) gabapentin 300 mg capsule 300 mg PO TID pain #90 caps 08/27/21 06/05/22 06/04/22 Rx oxycodone 10 mg tablet 10 mg PO TID PRN pain 12/01/21 06/05/22 06/04/22 History tiotropium bromide 2.5 2 puff inhalation BID 12/01/21 06/05/22 06/04/22 History mcg/actuation mist for inhalation (Spiriva Respimat) Diabetic Shoes with 3 sets of #1 ea 02/18/22 05/20/22 Unknown Rx insoles desvenlafaxine succinate 100 mg 200 mg PO DAILY #180 tabs 03/31/22 06/05/22 06/04/22 Rx tablet,extended release 24 hr (Pristiq) semaglutide 0.25 mg or 0.5 mg (2 See Rx Instructions .Route .COMPLEX 06/04/22 06/05/22 06/01/22 History mg/1.5 mL) subcutaneous pen injector (Ozempic) Allergies Allergy/AdvReac Type Severity Reaction Status Date / Time insect venom Allergy Severe ALGY-Anaphy Verified 06/05/22 07:55 laxis latex Allergy RASH, HIVES Verified 06/05/22 07:55 propoxyphene Allergy HIVES Verified 06/05/22 07:55 [From Darvocet-N] zonisamide [From Zonegran] AdvReac N/V Verified 06/05/22 07:55 Current Medications Generic Name Dose Route Start Last Admin Trade Name Freq PRN Reason Stop Dose Admin Sodium Chloride 1,000 mls @ 30 mls/hr 06/05/22 07:45 06/05/22 08:13 Sodium Chloride 0.9% IV 06/06/22 07:44 30 mls/hr .Q24H NICKO Administration PFSH Anesthesia Medical History Arthritis Bilateral chronic knee pain Cervical disc disease Cervical radiculopathy Chronic lumbosacral pain DDD (degenerative disc disease), lumbar Encounter for long-term use of opiate analgesic Generalized anxiety disorder Localized pain of right shoulder joint Long-term use of high-risk medication Lumbar foraminal stenosis Lumbar radiculitis Major depressive disorder, recurrent, in partial remission Morbid obesity Neural foraminal stenosis of cervical spine Opioid contract exists Paresthesia and pain of both upper extremities Psychiatric care Restless legs syndrome Risk for falls Smoker Spondylolisthesis, acquired Surgical History Hx of removal of cyst RIGHT HIP/ DR PINEDA S/P carpal tunnel release S/P cholecystectomy LAPAROSCOPIC 2010 S/P decompression of ulnar nerve DR PAUL 2008? LEFT SIDE S/P partial hysterectomy CANCER S/P shoulder surgery RIGHT Status post craniotomy 2004- SMALL TUMOR REMOVAL / DR PAUL Family History Family/Other Lung disease ASTHMA Other Anemia Clotting disorder Diabetes Heart disease Hypertension Kidney disease Stroke Denies family history of Anesthesia complication Bleeding disorder Social History Smoking and tobacco status: never smoked Smoking risk assessment/counseling performed?: Yes Tobacco counseling given: counseling >3 minutes Alcohol intake: never History of recent travel: No Female Reproductive History Date of last menstrual period: 08/23/99 Data Anesthesia Cardiac Studies: No Data to Display
--- NOTE | 2022-06-05 09:00 | PM.OP ---
Operative Report Date of procedure: June 05, 2022 Pre-op diagnosis: Preop Diagnosis Tailor's bunion left foot Post-op diagnosis: Same Post-op findings: none Procedure done: Left tailor's bunionectomy. CPT 76614 Procedure: Pre-op diagnosis: Left tailor's bunion Post-op diagnosis: Same Procedure done: Left tailor's bunionectomy CPT code 53702 Implants: Norco ProStep Specimens removed/disposition: None Pathology: None Surgeon: Michele Greene D.P.M. Jig Bore Tool Maker: Hayde Estimated blood loss: 5 Tourniquet time: See intraoperative documentation IV fluids: 0 Urine output: None Complications: None Brief History: Progressive pain at the left lateral foot associated with the patient's tailor's bunion, has a sharp stabbing pain on a daily basis no longer alleviated by wide accommodative shoes, padding, bracing and anti-inflammatories or activity modification.? Would like to proceed with surgical correction with efforts of reducing his pain.? Risks include pain, bleeding, numbness, infection, hardware failure, hardware rotation, delayed union, malunion, nonunion, recurrence of deformity, overcorrection deformity, failure to correct formally, chronic swelling, paresthesias, permanent numbness.? Deep vein thrombosis, heart attack, stroke and .? Patient is agreeable wishes to proceed.? Informed consent signed by patient and myself.? Patient n.p.o. since midnight.? I initialed patient's left foot.? No guarantees written, expressed or implied. Procedure: Under mild sedation the patient was brought to the operating room and remained on the gurney in supine position.? A timeout was performed.? Anesthesia was then administered by the anesthesia service.? Local anesthesia injected by myself consisting of 20 cc of 0.25% Marcaine plain and a reverse [place] block fashion to the left foot.? And 10 cc of Exparel in a subcutaneous fashion in a grid like fashion per maintenance and custodian supervisor recommendation. Well-padded pneumatic tourniquet applied to the left ankle.? The left lower extremity was then scrubbed, prepped and draped utilizing normal aseptic technique.? Left foot was exanguinated with an Esmarch bandage and the tourniquet inflated to 250 mmHg. Attention was directed to the dorsal lateral aspect of the left fifth metatarsal phalangeal joint where a linear longitudinal incision was made medial and parallel to the extensor tendons.? Dissection was carried down through the skin and subcutaneous tissue with care taken to retract and preserve neurovascular and tendinous structures.? All bleeders were ligated and cauterized as necessary.? Head of the fifth metatarsal dorsally, laterally and medially was freed from its soft tissue attachments followed by osteotomy at the metaphyseal flare in a transverse fashion and the head of the fifth metatarsal shifted medially and in more anatomically corrected position.? Utilizing broaching small ProStep intramedullary implant was sized and implanted followed by fixation utilizing standard AO technique and maintenance and custodian supervisor recommendations with a locking screw.? Lateral shelf was transected and all rough edges were smoothed.? Intraoperative fluoroscopy confirmed reduction of the intermetatarsal angle and excellent medial shift of the fifth metatarsal head which was fixated utilizing intramedullary implant and locking screw.? Incision site was flushed with saline solution.? Closed in a layered fashion with 3-0 Vicryl and 4-0 nylon.? Exparel injected this was 10 cc of Exparel expanded with 10 cc of 0.25% Marcaine plain diffuse about the operative site in a grid like fashion subcutaneously.? Incision was dressed with Adaptic, sterile 4 x 4, Kerlix, Mckinley wrap followed by application of a cam boot.? Tourniquet was deflated and a prompt hyperemic response was noted to the distal digits of the right foot.? Patient tolerated the procedure and anesthesia well and was transferred to the PACU with vital signs stable and vascular status intact.? Following a period of postop monitoring she will be discharged home was prescribed hydrocodone mg to be taken every 6 hours as needed for pain.? Is to elevate her right foot while resting.? May be protected weightbearing with a cam boot.? Patient to keep her surgical dressing clean, dry and intact until follow-up next Wednesday in clinic for her first dressing change.
--- NOTE | 2022-06-05 09:14 | W.PM.OPSUD ---
Surgery/Procedure H&P Update DATE OF PROCEDURE: June 05, 2022 DATE H&P PERFORMED: 02/18/22 CHANGES TO PREVIOUS DOCUMENTATION: none PREOP DIAGNOSIS: Tailor's bunion left foot PLANNED PROCEDURE: Operation Date: 06/05/22 09:10 Proposed Procedures p Left tailor's bunionectomy 02590,M21.622(Left) - Michele Greene DPM
[2022-06-05] MEDS: ceFAZolin 2,000 MG in sodium chloride 0.9% (plus) 50 ML 100 MG IV (09:15)
[2022-06-05 10:02] VITALS: BP 130/59; PULSE 69; RESP 16; TEMP 36.8; O2SAT 97
[2022-06-05 10:07] VITALS: BP 122/65; PULSE 71; RESP 17; O2SAT 94
[2022-06-05 10:12] VITALS: BP 125/74; PULSE 67; RESP 18; O2SAT 93
[2022-06-05 10:27] VITALS: BP 106/63; PULSE 64; RESP 18; TEMP 36.1; O2SAT 93
[2022-06-05] MEDS: HYDROcodone-acetaminophen 10-325 mg Tablet 1 TAB PO (10:34)
[2022-06-05 10:54] VITALS: BP 125/77; PULSE 64; RESP 16; O2SAT 93
--- NOTE | 2022-06-05 12:59 | ANE.PACU2 ---
Inpatient post-anesthesia follow up: Airway intact: Yes Vital signs: Temperature 97.0 F Pulse Rate 64 Respiratory Rate 16 Blood Pressure 125/77 Pulse Oximetry 93 Oxygen Delivery Me thod Room Air Oxygen Flow Rate 10.0 Fraction of Inspir ed Oxygen Hydration adequate: Yes Nausea and vomiting: No Pain level: 1 Mental status: Baseline
== END 2022-06-05 11:01 | disposition home or self-care (01) ==
PROVIDERS: PCP Family Medicine; Visit Provider Podiatrist Foot & Ankle Surgery
PROC: 0QBP0ZZ Excision of Left Metatarsal, Open Approach (ICD-10-PCS; CPT 28110; principal; 2022-06-05 09:10)
DX: M21.622 Bunionette of left foot (principal); J44.9 Chronic obstructive pulmonary disease, unspecified; I10 Essential (primary) hypertension; K21.9 Gastro-esophageal reflux disease without esophagitis; E11.9 Type 2 diabetes mellitus without complications; E78.5 Hyperlipidemia, unspecified; E66.01 Morbid (severe) obesity due to excess calories; Z68.38 Body mass index [BMI] 38.0-38.9, adult; M19.90 Unspecified osteoarthritis, unspecified site
CPT/HCPCS: 28306; 36416; 73630; 76000; 82962; C1713; C9290; J2704; J3010; J3490; J7030

== ENCOUNTER → 2022-06-18 10:23 | Outpatient (BNVA) | payer MEDICARE, MEDICAID, SELFPAY | PROVIDERS: PCP Family Medicine; Visit Provider Podiatrist Foot & Ankle Surgery | DX: Z98.890 Other specified postprocedural states (principal); M21.611 Bunion of right foot; M21.612 Bunion of left foot; M20.40 Other hammer toe(s) (acquired), unspecified foot; E11.42 Type 2 diabetes mellitus with diabetic polyneuropathy; M21.621 Bunionette of right foot; M21.622 Bunionette of left foot; Z79.84 Long term (current) use of oral hypoglycemic drugs | CPT/HCPCS: 73630; 99024 ==

== ENCOUNTER → 2022-07-02 14:20 | Outpatient (BNVA) | payer MEDICARE, MEDICAID, SELFPAY | PROVIDERS: PCP Family Medicine; Visit Provider Podiatrist Foot & Ankle Surgery | DX: M21.611 Bunion of right foot (principal); M21.612 Bunion of left foot; M20.40 Other hammer toe(s) (acquired), unspecified foot; E11.42 Type 2 diabetes mellitus with diabetic polyneuropathy; M21.621 Bunionette of right foot; M21.622 Bunionette of left foot; Z79.84 Long term (current) use of oral hypoglycemic drugs | CPT/HCPCS: 73630; 99024 ==

== ENCOUNTER → 2022-07-13 12:39 | Outpatient (BNVA) | payer MEDICARE, MEDICAID, SELFPAY | PROVIDERS: PCP Family Medicine; Visit Provider Podiatrist Foot & Ankle Surgery | DX: E11.42 Type 2 diabetes mellitus with diabetic polyneuropathy (principal); M21.611 Bunion of right foot; M21.612 Bunion of left foot; M20.40 Other hammer toe(s) (acquired), unspecified foot; M21.621 Bunionette of right foot; M21.622 Bunionette of left foot; Z79.84 Long term (current) use of oral hypoglycemic drugs | CPT/HCPCS: 99024 ==

== ENCOUNTER → 2022-07-30 13:39 | Outpatient (BNVA) | payer MEDICARE, MEDICAID, SELFPAY | PROVIDERS: PCP Family Medicine; Visit Provider Podiatrist Foot & Ankle Surgery | DX: M21.611 Bunion of right foot (principal); M21.612 Bunion of left foot; E11.42 Type 2 diabetes mellitus with diabetic polyneuropathy; M21.621 Bunionette of right foot; M21.622 Bunionette of left foot; Z79.84 Long term (current) use of oral hypoglycemic drugs; Z98.890 Other specified postprocedural states | CPT/HCPCS: 73630; 99024 ==

== ENCOUNTER → 2022-09-10 14:07 | Outpatient (BNVA) | payer MEDICARE, MEDICAID, SELFPAY | PROVIDERS: PCP Family Medicine; Visit Provider Podiatrist Foot & Ankle Surgery | DX: Z98.890 Other specified postprocedural states (principal); M21.611 Bunion of right foot; M21.612 Bunion of left foot; M20.40 Other hammer toe(s) (acquired), unspecified foot; E11.42 Type 2 diabetes mellitus with diabetic polyneuropathy; M21.621 Bunionette of right foot; M21.622 Bunionette of left foot; M79.672 Pain in left foot; Z79.84 Long term (current) use of oral hypoglycemic drugs | CPT/HCPCS: 73630; 99024 ==

== ENCOUNTER 2022-12-02 14:08 | Outpatient (CLI) | payer MEDICARE, MEDICAID, SELFPAY ==
--- NOTE | 2022-12-02 14:17 | CT_ITS ---
WS: [id number] LDCT LUNG CANCER SCREENING TECHNIQUE: Noncontrast CT of the chest with coronal and sagittal reformatted images. CLINICAL INFORMATION: NICOTINE DEPENDENCE, CIGARETTES COMPARISON: CT December 29, 2021 DLP: 139.51 mGy.cm DIvol: Mean CTDIvol: 3.30 (mGy) All CT scans at [facility] use at least one of these dose optimization techniques: automat ed exposure control; mA and/or kV adjustment per patient size (includes targeted exams where dose is matched to clinical indication); or iterative reconstruction. FINDINGS: Several subcentimeter pulmonary nodules as previously described unchanged compared to previous. Large st RIGHT lower lobe measuring 6 mm. No new pulmonary nodules. Mild aortic calcification. No mediastin al or hilar lymphadenopathy. No axillary lymphadenopathy. Cholecystectomy clips. Mild hepatomegaly and splenomegaly partially visualized. Adrenal glands are no rmal. CT/CT lung screening [id number] IMPRESSION: LUNG-RADS: 2-Benign Appearance or Behavior FOLLOW UP: 12 Month: Continue annual screening with LDCT
== END 2022-12-02 14:09 | disposition home or self-care (01) ==
LOC: RAD 14:12
PROVIDERS: PCP Family Medicine; Visit Provider Family Medicine
DX: Z12.2 Encounter for screening for malignant neoplasm of respiratory organs (principal); F17.210 Nicotine dependence, cigarettes, uncomplicated
CPT/HCPCS: 71271

== ENCOUNTER 2023-03-21 12:29 | Emergency (ER) | payer MEDICARE, MEDICAID, SELFPAY ==
[2023-03-21 12:43] VITALS: BP 147/94; PULSE 90; RESP 15; TEMP 36.9; O2SAT 97
[2023-03-21 12:58] LABS: Basophils # 0.1 10^3/uL (0.0-0.1); Basophils % 0.6 %; Eosinophils # 0.2 10^3/uL (0.0-0.8); Hematocrit 51.6 % (37.0-47.0); Hemoglobin 17.4 g/dL (11.5-15.3); Lymphocytes % 10.4 %; Mean Corpuscular HGB Conc 33.7 g/dL (30.0-36.0); Mean Corpuscular Hemoglobin 33.7 pg (28.0-34.0); Mean Platelet Volume 11.5 fL (7.4-10.4); Monocytes # 1.2 10^3/uL (0.2-0.9); Monocytes % 6.1 %; Neutrophils # 15.12 10^3/uL (1.8-7.7); Neutrophils % 80.7 %; Nucleated Red Blood Cells % 0 %; Platelet Count 466 10^3/cmm (130-400); Red Blood Count 5.16 10^6/uL (4.1-5.3); Red Cell Distribution Width 14.6 % (12.1-15.1); White Blood Count 18.8 10^3/uL (4.0-10.0)
--- NOTE | 2023-03-21 13:03 | ED_ITS ---
Documented by User: Prabha Huff PA-C 03/21/23 14:24 HPI - Skin/Abscess/Foreign Bdy General: Chief complaint: Skin/Abscess/Foreign Body Stated complaint: possible abscess on buttock Time Seen by Provider: 03/21/23 12:43 Source: patient Mode of arrival: ambulatory Limitations: no limitations History of Present Illness: 52 yr old female presents to the ER today for a possible vaginal abscess. Pt reports she first noticed this 3-4 days ago. Pt reports she has been doing warm compresses with no improvement. Pt denies any drainage. She reports chills but has not checked her temperature at home. Pt rates pain a 10/10 at this time. Pt denies any hx of this in the past. Review of Systems General: Reports: 10 or more systems reviewed and unremarkable except in HPI and below PFSH ED PFSH: Medical History Arthritis Bilateral chronic knee pain Cervical disc disease Cervical radiculopathy Chronic lumbosacral pain DDD (degenerative disc disease), lumbar Encounter for long-term use of opiate analgesic Generalized anxiety disorder Localized pain of right shoulder joint Long-term use of high-risk medication Lumbar foraminal stenosis Lumbar radiculitis Major depressive disorder, recurrent, in partial remission Morbid obesity Neural foraminal stenosis of cervical spine Opioid contract exists Paresthesia and pain of both upper extremities Psychiatric care Restless legs syndrome Risk for falls Smoker Spondylolisthesis, acquired Surgical History Hx of removal of cyst RIGHT HIP/ DR PINEDA S/P carpal tunnel release S/P cholecystectomy LAPAROSCOPIC 2010 S/P decompression of ulnar nerve DR PAUL 2008? LEFT SIDE S/P partial hysterectomy CANCER S/P shoulder surgery RIGHT Status post craniotomy 2004- SMALL TUMOR REMOVAL / DR PAUL Family History Family/Other Lung disease ASTHMA Other Anemia Clotting disorder Diabetes Heart disease Hypertension Kidney disease Stroke Denies family history of Anesthesia complication Bleeding disorder Social History Smoking and tobacco status: never smoked Smoking risk assessment/counseling performed?: Yes Tobacco counseling given: counseling >3 minutes Alcohol intake: never Substance/Drug Use: never Physical Exam Const: COMMON NORMALS: average body habitus, patient oriented x3, no li mitations, healthy appearing, alert and well nourished; apparent distress (appears uncomfortable) Resp: COMMON NORMALS: normal respiratory effort EFFORT & INSPECTION: Yes able to speak in complete sentences Cardio: COMMON NORMALS: regular rate and regular rhythm RATE: regular rate RHYTHM: regular rhythm : OTHER: Patient has a very tender, indurated area on the left perineal area between the vagina and rectum. There is no fluctuance noted. Mild erythema is noted. Extremity: COMMON NORMALS: normal to inspection and full ROM Neuro: COMMON NORMALS: patient oriented x3 SENSORIUM/ORIENTATION: Yes alert Psych: COMMON NORMALS: mental status grossly normal, Normal thought process present and cooperative THOUGHT PROCESS: Normal thought process present Skin: NARRATIVE SKIN EXAM: See exam Course ED course: Patient presents to the ER for a left sided perineal abscess. On exam patient is noted to have an abscess however this is not fluctuant and unlikely we could get anything if we opened up today. We will get a CBC. If normal I would rec ommend we treat with antibiotics and warm compresses/sitz bath. Reevaluation(s): Reevaluation #1: Clindamycin was unavailable so we will switch to Zosyn. This will cover for any skin structure origin. Vital Signs: Vital signs: Vital Signs Temperature 98.5 F 03/21/23 12:43 Pulse Rate 90 03/21/23 12:43 Respiratory Rate 15 03/21/23 12:43 Blood Pressure 147/94 03/21/23 12:43 Pulse Oximetry 97 03/21/23 12:43 Oxygen Delivery Me thod Room Air 03/21/23 12:43 MDM - Skin/Abscess/Foreign Bdy Medicial Decision Making Patient is noted to have a large area of induration without fluctuance of the left perineal area. Patient's white count is also greater than 18,000. Given there is nothing to open at this time however with the elevated white count, we will go ahead and do IV antibiotics here. We will give 1 dose and then send patient home with oral clindamycin. A case management referral was also placed so that patient can see general surgeon in a couple of days. We will do Toradol for pain. Recommended warm compresses and sitz bath's. Follow-up with general surgeon because likely this may need opened in the near future. Return precautions were discussed with patient. Patient verbalized understanding and was in agreement with the treatment plan. Lab Data 03/21/23 12:51 Laboratory Results WBC 18.8 10^3/uL (4.0-10.0) H 03/21/23 12:51 RBC 5.16 10^6/uL (4.1-5.3) 03/21/23 12:51 Hgb 17.4 g/dL (11.5-15.3) H 03/21/23 12:51 Hct 51.6 % (37.0-47.0) H 03/21/23 12:51 MCV 100.0 fl (81-99) H 03/21/23 12:51 MCH 33.7 pg (28.0-34.0) 03/21/23 12:51 MCHC 33.7 g/dL (30.0-36.0) 03/21/23 12:51 RDW 14.6 % (12.1-15.1) 03/21/23 12:51 Plt Count 466 10^3/cmm (130-400) H 03/21/23 12:51 MPV 11.5 fL (7.4-10.4) H 03/21/23 12:51 Neut % (Auto) 80.7 % 03/21/23 12:51 Lymph % (Auto) 10.4 % 03/21/23 12:51 Morton % (Auto) 6.1 % 03/21/23 12:51 Eos % (Auto) 1.0 % 03/21/23 12:51 Baso % (Auto) 0.6 % 03/21/23 12:51 Neut # (Auto) 15.12 10^3/uL (1.8-7.7) H 03/21/23 12:51 Lymph # (Auto) 2.0 10^3/uL (0.8-4.8) 03/21/23 12:51 Morton # (Auto) 1.2 10^3/uL (0.2-0.9) H 03/21/23 12:51 Eos # (Auto) 0.2 10^3/uL (0.0-0.8) 03/21/23 12:51 Baso # (Auto) 0.1 10^3/uL (0.0-0.1) 03/21/23 12:51 Nucleated RBC % (auto) 0 % 03/21/23 12:51 Nucleated RBCs # 0.0 /100WBC 03/21/23 12:51 Critical Care Time Critical Care Time: Critical Care Time: No Discharge Plan Discharge Patient Disposition: Home Clinical Impression: Abscess, vagina Condition: Stable Prescriptions: New clindamycin HCl 300 mg capsule 300 mg PO Q6H 7 Days Qty: 28 0RF ketorolac 10 mg tablet 10 mg PO Q8H PRN (Reason: pain) 3 Days Qty: 9 0RF No Action Prilosec OTC 20 mg tablet,delayed release (DR/EC) 20 mg PO BID lisinopril-hydrochlorothiazide 20-12.5 mg tablet 2 tab PO DAILY cetirizine 10 mg tablet 10 mg PO DAILY epinephrine [EpiPen 2-Boo] 0.3 mg/0.3 mL auto-injector 0.3 mg IM ONCE PRN (Reason: Allergic Reaction) diphenhydramine HCl [Benadryl Allergy] 25 mg tablet 25 mg PO . NEEDED docusate sodium [Stool Softener] 100 mg capsule 100 mg PO . NEEDED nitroglycerin 0.4 mg tablet, sublingual 0.4 mg SUBLINGUAL Q5M PRN (Reason: Chest Pain) albuterol sulfate [Ventolin HFA] 90 mcg/actuation HFA aerosol inhaler 1 puff INHALATION ONCE PRN (Reason: Shortness Of Breath) metformin 500 mg tablet 1,000 mg PO DAILY rosuvastatin [Crestor] 40 mg tablet 40 mg PO BEDTIME Jardiance 25 mg tablet 25 mg PO DAILY glimepiride 4 mg tablet 4 mg PO DAILY Spiriva Respimat 2.5 mcg/actuation mist 2 puff inhalation BID Patient Comments: pt no longer taking gabapentin 300 mg capsule 300 mg PO TID MDD 3 Qty: 90 1RF (DME) Diabetic Shoes with 3 sets of insoles See Rx Instructions .Route .MEDSUPPLY Qty: 1 0RF Rx Instructions: As directed by HOME oxycodone 10 mg tablet 10 mg PO TID desvenlafaxine succinate [Pristiq] 100 mg tablet extended release 24 hr 200 mg PO DAILY Qty: 180 0RF Ozempic 0.25 mg or 0.5 mg(2 mg/1.5 mL) pen injector See Rx Instructions .ROUTE .COMPLEX Rx Instructions: 0.5 mg subcutaneously WEEKLY Multi-Vitamin Tablet 1 tab PO DAILY tizanidine 4 mg tablet 4 mg PO DAILY PRN (Reason: Pain) metoprolol tartrate 50 mg tablet 50 mg PO BID Discharge Orders: Discharge ED (Routine); Ordered 03/21/23 Ordered By: Prabha Huff Referrals: Roe Shoemaker MD [Primary Care Provider] - Discharge Diet: Usual diet Discharge Activity: Increase activity as tolerated Patient Instructions: Opioid Safety, Pain Management Activity Restrictions/Additional Instructions: Take antibiotics as prescribed. Warm compresses and sitz baths recommended. Take ketorolac for pain, do not take NSAIDs with this. F/U with PCP in 2-3 days. Consult with general surgeon has been placed and you should be contacted regarding this. Coding Level of Care Code ED Test Desk Trouble Locator for Chg Fwd Documented by User: Arnav Garcia DO 03/22/23 06:43 HPI - Skin/Abscess/Foreign Bdy General: Chief complaint: Skin/Abscess/Foreign Body Stated complaint: possible abscess on buttock Time Seen by Provider: 03/21/23 12:43 [facility] ED PFSH: Medical History Arthritis Bilateral chronic knee pain Cervical disc disease Cervical radiculopathy Chronic lumbosacral pain DDD (degenerative disc disease), lumbar Encounter for long-term use of opiate analgesic Generalized anxiety disorder Localized pain of right shoulder joint Long-term use of high-risk medication Lumbar foraminal stenosis Lumbar radiculitis Major depressive disorder, recurrent, in partial remission Morbid obesity Neural foraminal stenosis of cervical spine Opioid contract exists Paresthesia and pain of both upper extremities Psychiatric care Restless legs syndrome Risk for falls Smoker Spondylolisthesis, acquired Surgical History Hx of removal of cyst RIGHT HIP/ DR PINEDA S/P carpal tunnel release S/P cholecystectomy LAPAROSCOPIC 2010 S/P decompression of ulnar nerve DR PAUL 2008? LEFT SIDE S/P partial hysterectomy CANCER S/P shoulder surgery RIGHT Status post craniotomy 2003- SMALL TUMOR REMOVAL / DR PAUL Family History Family/Other Lung disease ASTHMA Other Anemia Clotting disorder Diabetes Heart disease Hypertension Kidney disease Stroke Denies family history of Anesthesia complication Bleeding disorder Social History Smoking and tobacco status: never smoked Smoking risk assessment/counseling performed?: Yes Tobacco counseling given: counseling >3 minutes Alcohol intake: never Substance/Drug Use: never Course Vital Signs: Vital signs: Vital Signs Temperature 98.5 F 03/21/23 12:43 Pulse Rate 90 03/21/23 12:43 Respiratory Rate 15 03/21/23 12:43 Blood Pressure 147/94 03/21/23 12:43 Pulse Oximetry 97 03/21/23 12:43 Oxygen Delivery Me thod Room Air 03/21/23 12:43 MDM - Skin/Abscess/Foreign Bdy Medicial Decision Making Patient is noted to have a large area of induration without fluctuance of the left perineal area. Patient's white count is also greater than 18,000. Given there is nothing to open at this time however with the elevated white count, we will go ahead and do IV antibiotics here. We will give 1 dose and then send patient home with oral clindamycin. A case management referral was also placed so that patient can see general surgeon in a couple of days. We will do Toradol for pain. Recommended warm compresses and sitz bath's. Follow-up with general surgeon because likely this may need opened in the near future. Return precautions were discussed with patient. Patient verbalized understanding and was in agreement with the treatment plan. Chart reviewed and patient discussed with midlevel. Agree with assessment and plan. Lab Data 03/21/23 12:51 Laboratory Results WBC 18.8 10^3/uL (4.0-10.0) H 03/21/23 12:51 RBC 5.16 10^6/uL (4.1-5.3) 03/21/23 12:51 Hgb 17.4 g/dL (11.5-15.3) H 03/21/23 12:51 Hct 51.6 % (37.0-47.0) H 03/21/23 12:51 MCV 100.0 fl (81-99) H 03/21/23 12:51 MCH 33.7 pg (28.0-34.0) 03/21/23 12:51 MCHC 33.7 g/dL (30.0-36.0) 03/21/23 12:51 RDW 14.6 % (12.1-15.1) 03/21/23 12:51 Plt Count 466 10^3/cmm (130-400) H 03/21/23 12:51 MPV 11.5 fL (7.4-10.4) H 03/21/23 12:51 Neut % (Auto) 80.7 % 03/21/23 12:51 Lymph % (Auto) 10.4 % 03/21/23 12:51 Morton % (Auto) 6.1 % 03/21/23 12:51 Eos % (Auto) 1.0 % 03/21/23 12:51 Baso % (Auto) 0.6 % 03/21/23 12:51 Neut # (Auto) 15.12 10^3/uL (1.8-7.7) H 03/21/23 12:51 Lymph # (Auto) 2.0 10^3/uL (0.8-4.8) 03/21/23 12:51 Morton # (Auto) 1.2 10^3/uL (0.2-0.9) H 03/21/23 12:51 Eos # (Auto) 0.2 10^3/uL (0.0-0.8) 03/21/23 12:51 Baso # (Auto) 0.1 10^3/uL (0.0-0.1) 03/21/23 12:51 Nucleated RBC % (auto) 0 % 03/21/23 12:51 Nucleated RBCs # 0.0 /100WBC 03/21/23 12:51 Discharge Plan Discharge Patient Disposition: Home Clinical Impression: Abscess, vagina Condition: Stable Prescriptions: New clindamycin HCl 300 mg capsule 300 mg PO Q6H 7 Days Qty: 28 0RF ketorolac 10 mg tablet 10 mg PO Q8H PRN (Reason: pain) 3 Days Qty: 9 0RF No Action Prilosec OTC 20 mg tablet,delayed release (DR/EC) 20 mg PO BID lisinopril-hydrochlorothiazide 20-12.5 mg tablet 2 tab PO DAILY cetirizine 10 mg tablet 10 mg PO DAILY epinephrine [EpiPen 2-Boo] 0.3 mg/0.3 mL auto-injector 0.3 mg IM ONCE PRN (Reason: Allergic Reaction) diphenhydramine HCl [Benadryl Allergy] 25 mg tablet 25 mg PO . NEEDED docusate sodium [Stool Softener] 100 mg capsule 100 mg PO . NEEDED nitroglycerin 0.4 mg tablet, sublingual 0.4 mg SUBLINGUAL Q5M PRN (Reason: Chest Pain) albuterol sulfate [Ventolin HFA] 90 mcg/actuation HFA aerosol inhaler 1 puff INHALATION ONCE PRN (Reason: Shortness Of Breath) metformin 500 mg tablet 1,000 mg PO DAILY rosuvastatin [Crestor] 40 mg tablet 40 mg PO BEDTIME Jardiance 25 mg tablet 25 mg PO DAILY glimepiride 4 mg tablet 4 mg PO DAILY Spiriva Respimat 2.5 mcg/actuation mist 2 puff inhalation BID Patient Comments: pt no longer taking gabapentin 300 mg capsule 300 mg PO TID MDD 3 Qty: 90 1RF (DME) Diabetic Shoes with 3 sets of insoles See Rx Instructions .Route .MEDSUPPLY Qty: 1 0RF Rx Instructions: As directed by HOME oxycodone 10 mg tablet 10 mg PO TID desvenlafaxine succinate [Pristiq] 100 mg tablet extended release 24 hr 200 mg PO DAILY Qty: 180 0RF Ozempic 0.25 mg or 0.5 mg(2 mg/1.5 mL) pen injector See Rx Instructions .ROUTE .COMPLEX Rx Instructions: 0.5 mg subcutaneously WEEKLY Multi-Vitamin Tablet 1 tab PO DAILY tizanidine 4 mg tablet 4 mg PO DAILY PRN (Reason: Pain) metoprolol tartrate 50 mg tablet 50 mg PO BID Discharge Orders: Discharge ED (Routine); Ordered 03/21/23 Ordered By: Prabha Huff Referrals: Roe Shoemaker MD [Primary Care Provider] - Discharge Diet: Usual diet Discharge Activity: Increase activity as tolerated Patient Instructions: Opioid Safety, Pain Management Activity Restrictions/Additional Instructions: Take antibiotics as prescribed. Warm compresses and sitz baths recommended. Take ketorolac for pain, do not take NSAIDs with this. F/U with PCP in 2-3 days. Co nsult with general surgeon has been placed and you should be contacted regarding this. Coding Level of Care Code ED Test Desk Trouble Locator for Armin Lai
[2023-03-21] MEDS: piperacillin-tazobactam 3.375 GM in sodium chloride 0.9% (plus) 50 ML IV (14:33)
--- NOTE | 2023-03-22 07:57 | DCPLANNER ---
Addendum entered by Misti Lubin 03/31/23 10:31: Patient had a follow up appointment scheduled with general surgery -patient did attend appointment Original Note: load manager had message to schedule a follow up appointment for patient with general surgery load manager sent patients information to the front office staff at general surgery. Patients information will be printed and reviewed. Clinic will call patient with appointment information.
== END 2023-03-21 15:13 | disposition home or self-care (01) ==
PROVIDERS: Emergency Provider Physician Assistant; PCP Family Medicine
DX: L02.215 Cutaneous abscess of perineum (principal); Z79.84 Long term (current) use of oral hypoglycemic drugs
CPT/HCPCS: 36415; 85025; 96365; 99284; J2543

== ENCOUNTER 2023-03-23 17:59 | Emergency (ER) | payer MEDICARE, MEDICAID, SELFPAY ==
[2023-03-23] VITALS (7 sets, daily range): BP systolic 131–161; BP diastolic 55–90; PULSE 80–107; RESP 16–20; TEMP 38.5; O2SAT 92–96; BMI 37.2
--- NOTE | 2023-03-23 18:13 | CTR_ITS ---
PROCEDURE INFORMATION: Exam: CT Pelvis With Contrast Exam date and time: 03/23/2023 7:28 PM Age: 52 years old Clinical indication: Pain; Other: Lt buttock; Additional info: Abscess/cellulitis of the left buttocks TECHNIQUE: Imaging protocol: Computed tomography of the pelvis with contrast. Radiation optimization: All CT scans at this facility use at least one of these dose optimization techniques: automated exposure control; mA and/or kV adjustment per patient size (includes targeted exams where dose is matched to clinical indication); or iterative reconstruction. Contrast material: OMNI 350; Contrast volume: 100 ml; Contrast route: INTRAVENOUS (IV); REPORTING DATA: Count of CT and Cardiac NM exams in prior 12 months: This patient has received [address] and 0 known cardiac nuclear medicine studies in the 12 months prior to the current study. COMPARISON: CR XR hip LT 2-3V wo/w pel* [id number] 03/04/2021 11:14 AM RADIATION DOSE METRICS: Total DLP (mGy-cm): 925.95 FINDINGS: Stomach and bowel: Visualized small bowel and colon are unremarkable. Appendix: No evidence of appendicitis. Intraperitoneal space: Unremarkable. No free air. No significant fluid collection. Vasculature: Mild diffuse atherosclerotic disease is present. Lymph nodes: Unremarkable. No enlarged lymph nodes. Urinary bladder: Normal. No mass. Reproductive: The uterus is surgically absent. Bones/joints: Degenerative changes of the spine seen. Soft tissues: There is edematous changes of the subcutaneous tissues in the left inferomedial gluteal region, with irregular fluid collection in the perineal region measuring approximally 6.1 x 2.1 x 5.8 cm, stranding of the surrounding fat and thickening of the overlying skin. CT/CT pelvis w con* [id number] IMPRESSION: Left perineal subcutaneous fluid collection with surrounding inflammatory changes, which given clinical history is consistent with abscess and surrounding cellulitis.
--- NOTE | 2023-03-23 18:21 | ED_ITS ---
HPI - Skin/Abscess/Foreign Bdy General: Chief complaint: Skin/Abscess/Foreign Body Stated complaint: Abcess Time Seen by Provider: 03/23/23 18:02 History of Present Illness: 52-year-old female presents to the emergency department chief complaint of having an abscess located on her left buttocks. Patient recently seen in our facility diagnosed with a deep cellulitis/early abscess of the buttock started on clindamycin patient presents in today after having ED's with a fever she was supposed be followed up with surgeon appointment however no one is contacted her yet she was taking some medications for her pain control to no avail patient presents by EMS for further assessment and management prior to arrival EMS provider who with some morphine for pain control. Patient does not endorse any drainage from the abscess location .patient reports no prior history of these in the past which reports she has been taking medications as prescribed. Associated symptoms: Reports chills and fever(s); Deny nausea or vomiting Review of Systems General: Reports: 10 or more systems reviewed and unremarkable except in HPI and below Const: Reports: fever(s) and chills; Denies: fatigue or malaise Eyes: Denies: change in vision or blurry vision Card: Denies: chest pain or palpitations Resp: Denies: dyspnea or productive cough GI: Denies: abdominal pain, nausea or vomiting : Denies: flank pain Musc: Denies: extremity pain or extremity swelling Skin/Breast: Reports: erythema, skin tenderness, skin swelling, sores, new lesions and changes in skin color; Denies: rash or pruritus Neuro: Denies: headache(s) Psych: Denies: anxiety or depression Ricci/Lymph: Denies: easy bleeding All/Imm: Denies: urticaria, throat swelling or facial swelling PFS ED PFSH: Medical History Arthritis Bilateral chronic knee pain Cervical disc disease Cervical radiculopathy Chronic lumbosacral pain DDD (degenerative disc disease), lumbar Encounter for long-term use of opiate analgesic Generalized anxiety disorder Localized pain of right shoulder joint Long-term use of high-risk medication Lumbar foraminal stenosis Lumbar radiculitis Major depressive disorder, recurrent, in partial remission Morbid obesity Neural foraminal stenosis of cervical spine Opioid contract exists Paresthesia and pain of both upper extremities Psychiatric care Restless legs syndrome Risk for falls Smoker Spondylolisthesis, acquired Surgical History Hx of removal of cyst RIGHT HIP/ DR PINEDA S/P carpal tunnel release S/P cholecystectomy LAPAROSCOPIC 2010 S/P decompression of ulnar nerve DR PAUL 2008? LEFT SIDE S/P partial hysterectomy CANCER S/P shoulder surgery RIGHT Status post craniotomy 2004- SMALL TUMOR REMOVAL / DR PAUL Family History Family/Other Lung disease ASTHMA Other Anemia Clotting disorder Diabetes Heart disease Hypertension Kidney disease Stroke Denies family history of Anesthesia complication Bleeding disorder Social History Smoking and tobacco status: never smoked Smoking risk assessment/counseling performed?: Yes Tobacco counseling given: counseling >3 minutes Alcohol intake: never Substance/Drug Use: never Physical Exam Const: COMMON NORMALS: no acute distress, patient oriented x3, healthy appearing and alert HENMT: COMMON NORMALS: normocephalic and atraumatic HEAD & SCALP: normoc ephalic and atraumatic Eye: COMMON NORMALS: Equal, round and reactive pupils present and EOMs intact bilaterally PUPIL: Yes Equal, round and reactive pupils present Neck/C-Spine: COMMON NORMALS: full ROM, supple and no JVD Lymph: LYMPHATIC: no lymphadenopathy noted Chest: COMMONS NORMALS: normal inspection of the chest and normal palpation of entire chest wall Resp: COMMON NORMALS: normal respiratory effort, No retractions and clear to auscultation bilaterally EFFORT & INSPECTION: Yes able to speak in complete sentences and Yes symmetric chest movement AUSCULTATION: clear to auscultation bilaterally Cardio: COMMON NORMALS: no JVD, regular rate and regular rhythm RATE: regular rate RHYTHM: regular rhythm GI: COMMON NORMALS: Normal to inspection, nondistended, normoactive bowel sounds present, Soft to palpation and non-tender INSPECTION: Yes normal to inspection PALPATION: Yes Soft to palpation : COMMON NORMALS: Yes no CVA tenderness BLADDER/KIDNEY EXAM: Yes no CVA tenderness OTHER: Patient has a very tender, indurated area on the left perineal area between the vagina and rectum involving the left gluteal cleft. There is no fluctuance noted. Mild erythema is noted. Back/Pelvis: COMMON NORMALS: no CVA tenderness Extremity: COMMON NORMALS: normal to inspection and full ROM Neuro: COMMON NORMALS: patient oriented x3, CN's II-XII intact bilaterally, moves all extremities and no focal motor deficits SENSORIUM/ORIENTATION: Yes alert Psych: COMMON NORMALS: mental status grossly normal, Normal thought process present, cooperative and normal affect THOUGHT PROCESS: Normal thought process present Skin: COMMON NORMALS: no rashes or lesions noted NARRATIVE SKIN EXAM: See exam GENERAL SKIN EXAM: no rashes or lesions noted Course Vital Signs: Vital signs: Vital Signs Temperature 101.3 F H 03/23/23 18:03 Pulse Rate 80 03/23/23 18:03 Respiratory Rate 16 03/23/23 18:03 Blood Pressure 161/71 03/23/23 18:34 Pulse Oximetry 96 03/23/23 18:03 Oxygen Delivery Me thod Room Air 03/23/23 18:03 MDM - Skin/Abscess/Foreign Bdy Medicial Decision Making Due to the patient's symptoms and condition an IV was established IV antibiotics was provided as well as pain medication CT imaging of the location of question will be obtained we will continue to follow. CT imaging revealed a fluid collection suggestive of an abscess with secondary cellulitis I attempted to do a needle decompression of this location in which the wound was clean by with Betadine in which approximately 5 cc of 1% lidocaine with epinephrine was introduced in which the upon this happening the needle was pulled back in which no purulent or bloody discharge was expressed due to the sensitive location of the area I decided to contact the general surgeon on-call Dr. Amrita Amaya which reports the patient can follow-up with him in the office on this upcoming to call the clinic tomorrow for an appointment patient be started on additional medications for her discomfort advised to continue on her clindamycin in which patient was advised to return the interim if any of her symptoms persist or worse. Lab Data 03/23/23 19:10 03/23/23 19:[address] 03/23/23 18:13 IMPRESSION: Left perineal subcutaneous fluid collection with surrounding inflammatory changes, which given clinical history is consistent with abscess and surrounding cellulitis. Laboratory Results WBC 15.1 10^3/uL (4.0-10.0) H 03/23/23 19:10 RBC 4.61 10^6/uL (4.1-5.3) 03/23/23 19:10 Hgb 15.3 g/dL (11.5-15.3) 03/23/23 19:10 Hct 46.7 % (37.0-47.0) 03/23/23 19:10 MCV 101.3 fl (81-99) H 03/23/23 19:10 MCH 33.2 pg (28.0-34.0) 03/23/23 19:10 MCHC 32.8 g/dL (30.0-36.0) 03/23/23 19:10 RDW 14.1 % (12.1-15.1) 03/23/23 19:10 Plt Count 323 10^3/cmm (130-400) 03/23/23 19:10 MPV 11.3 fL (7.4-10.4) H 03/23/23 19:10 Neut % (Auto) 85.3 % 03/23/23 19:10 Lymph % (Auto) 7.4 % 03/23/23 19:10 [place] % (Auto) 5.8 % 03/23/23 19:10 Eos % (Auto) 0.5 % 03/23/23 19:10 Baso % (Auto) 0.3 % 03/23/23 19:10 Neut # (Auto) 12.87 10^3/uL (1.8-7.7) H 03/23/23 19:10 Lymph # (Auto) 1.1 10^3/uL (0.8-4.8) 03/23/23 19:10 [place] # (Auto) 0.9 10^3/uL (0.2-0.9) 03/23/23 19:10 Eos # (Auto) 0.1 10^3/uL (0.0-0.8) 03/23/23 19:10 Baso # (Auto) 0.1 10^3/uL (0.0-0.1) 03/23/23 19:10 Nucleated RBC % (auto) 0 % 03/23/23 19:10 Nucleated RBCs # 0.0 /100WBC 03/23/23 19:10 Sodium 129 mmol/L (136-145) L 03/23/23 19:10 Potassium 4.0 mmol/L (3.5-5.1) 03/23/23 19:10 Chloride 95 mmol/L (98-107) L 03/23/23 19:10 Carbon Dioxide 22 mmol/L (22-29) 03/23/23 19:10 Anion Gap 16.0 (5-19) 03/23/23 19:10 BUN 16 mg/dL (6-20) 03/23/23 19:10 Creatinine 0.7 mg/dL (0.5-0.9) 03/23/23 19:10 GFR Calculation 87.9 mL/min (90-130) L 03/23/23 19:10 Glucose 187 mg/dL (65-115) H 03/23/23 19:10 Calculated Osmolality 274 mOsm/kg (285-295) L 03/23/23 19:10 Lactic Acid 1.1 mmol/L (0.5-2.2) 03/23/23 19:10 Calcium 8.8 mg/dL (8.5-10.5) 03/23/23 19:10 Total Bilirubin 0.4 mg/dL (0.15-1.2) 03/23/23 19:10 AST 16 U/L (0-32) 03/23/23 19:10 ALT 13 U/L (0-33) 03/23/23 19:10 Alkaline Phosphatase 93 U/L (35-105) 03/23/23 19:10 C-Reactive Protein 201.9 mg/L (0.0-4.9) H 03/23/23 19:10 Total Protein 6.3 g/dL (6.6-8.7) L 03/23/23 19:10 Albumin 3.2 g/dL (3.5-5.2) L 03/23/23 19:10 Globulin 3.1 g/dL (1.3-4.6) 03/23/23 19:10 Discharge Plan Discharge Patient Disposition: Home Clinical Impression: Abscess and cellulitis of gluteal region Condition: Stable Prescriptions: New hydrocodone-acetaminophen 5-325 mg tablet 1 tab PO Q12H PRN (Reason: pain) Qty: 10 0RF No Action Prilosec OTC 20 mg tablet,delayed release (DR/EC) 20 mg PO BID lisinopril-hydrochlorothiazide 20-12.5 mg tablet 2 tab PO DAILY cetirizine 10 mg tablet 10 mg PO DAILY epinephrine [EpiPen 2-Boo] 0.3 mg/0.3 mL auto-injector 0.3 mg IM ONCE PRN (Reason: Allergic Reaction) diphenhydramine HCl [Benadryl Allergy] 25 mg tablet 25 mg PO . NEEDED docusate sodium [Stool Softener] 100 mg capsule 100 mg PO . NEEDED nitroglycerin 0.4 mg tablet, sublingual 0.4 mg SUBLINGUAL Q5M PRN (Reason: Chest Pain) albuterol sulfate [Ventolin HFA] 90 mcg/actuation HFA aerosol inhaler 1 puff INHALATION ONCE PRN (Reason: Shortness Of Breath) metformin 500 mg tablet 1,000 mg PO DAILY rosuvastatin [Crestor] 40 mg tablet 40 mg PO BEDTIME Jardiance 25 mg tablet 25 mg PO DAILY glimepiride 4 mg tablet 4 mg PO DAILY Spiriva Respimat 2.5 mcg/actuation mist 2 puff inhalation BID Patient Comments: pt no longer taking gabapentin 300 mg capsule 300 mg PO TID MDD 3 Qty: 90 1RF (DME) Diabetic Shoes with 3 sets of insoles See Rx Instructions .Route .MEDSUPPLY Qty: 1 0RF Rx Instructions: As directed by HOME oxycodone 10 mg tablet 10 mg PO TID desvenlafaxine succinate [Pristiq] 100 mg tablet extended release 24 hr 200 mg PO DAILY Qty: 180 0RF Ozempic 0.25 mg or 0.5 mg(2 mg/1.5 mL) pen injector See Rx Instructions .ROUTE .COMPLEX Rx Instructions: 0.5 mg subcutaneously WEEKLY Multi-Vitamin Tablet 1 tab PO DAILY tizanidine 4 mg tablet 4 mg PO DAILY PRN (Reason: Pain) metoprolol tartrate 50 mg tablet 50 mg PO BID clindamycin HCl 300 mg capsule 300 mg PO Q6H 7 Days Qty: 28 0RF ketorolac 10 mg tablet 10 mg PO Q8H PRN (Reason: pain) 3 Days Qty: 9 0RF Discharge Orders: Discharge ED (Routine); Ordered 03/23/23 Ordered By: Marck Felton Referrals: Evan Man MD [Physician] - 1-3 days (Your case was discussed with the surgeon which reports he is in clinic on please contact his office tomorrow to confirm an appointment on for your abscess/cellulitis) Roe Shoemaker MD [Primary Care Provider] - Patient Instructions: Cellulitis (ED), Abscess (ED), Opioid Safety, Pain Management Activity Restrictions/Additional Instructions: Please further follow-up with the above general surgeon on this upcoming please contact his office tomorrow to get on his schedule to be seen in his clinic. Please continue to take your antibiotics as prescribed as well as the pain medications as prescribed you can use warm compresses to the affected area in hopes of breaking down the surrounding tissue in which she will be then able to be drained. Please return in the interim if any of your symptoms pe rsist or worse. Coding Level of Care Code ED Food Science Technician for Armin Lai
[2023-03-23] MEDS: fentaNYL 50 mcg/mL INJ 2mL IVP (18:35)
[2023-03-23] MEDS: sodium chloride 0.9% 1,000 ML 999 ML IV (18:35)
[2023-03-23 19:22] LABS: Basophils # 0.1 10^3/uL (0.0-0.1); Basophils % 0.3 %; Eosinophils # 0.1 10^3/uL (0.0-0.8); Eosinophils % 0.5 %; Hematocrit 46.7 % (37.0-47.0); Hemoglobin 15.3 g/dL (11.5-15.3); Lymphocytes # 1.1 10^3/uL (0.8-4.8); Lymphocytes % 7.4 %; Mean Corpuscular HGB Conc 32.8 g/dL (30.0-36.0); Mean Corpuscular Hemoglobin 33.2 pg (28.0-34.0); Mean Corpuscular Volume 101.3 fl (81-99); Mean Platelet Volume 11.3 fL (7.4-10.4); Monocytes # 0.9 10^3/uL (0.2-0.9); Monocytes % 5.8 %; Neutrophils # 12.87 10^3/uL (1.8-7.7); Neutrophils % 85.3 %; Nucleated Red Blood Cells % 0 %; Platelet Count 323 10^3/cmm (130-400); Red Blood Count 4.61 10^6/uL (4.1-5.3); Red Cell Distribution Width 14.1 % (12.1-15.1); White Blood Count 15.1 10^3/uL (4.0-10.0)
[2023-03-23] MEDS: iohexol 350 mg/mL 500 mL Btl (per mL) IV (19:37)
[2023-03-23 19:41] LABS: Slide Review Slide Review Perform
[2023-03-23 19:44] LABS: Lactic Sepsis W/Reflex 1.1 mmol/L (0.5-2.2)
[2023-03-23 19:45] LABS: Alanine Aminotransferase 13 U/L (0-33); Albumin Level 3.2 g/dL (3.5-5.2); Alkaline Phosphatase 93 U/L (35-105); Blood Urea Nitrogen 16 mg/dL (6-20); C Reactive Protein 201.9 mg/L (0.0-4.9); Calcium 8.8 mg/dL (8.5-10.5); Carbon Dioxide 22 mmol/L (22-29); Chloride 95 mmol/L (98-107); Globulin 3.1 g/dL (1.3-4.6); Glomerular Filtration Rate 87.9 mL/min (90-130); Glucose 187 mg/dL (65-115); Osmolality Calculated 274 mOsm/kg (285-295); Sodium 129 mmol/L (136-145); Total Bilirubin 0.4 mg/dL (0.15-1.2); Total Protein 6.3 g/dL (6.6-8.7)
[2023-03-23] MEDS: clindamycin 600 MG/50 ML PREMIX 100 MG IV (19:56)
[2023-03-23 20:19] LABS: Aspartate Amino Transferase 16 U/L (0-32)
[2023-03-23] MEDS: lidocaine-epi 1% 20 mL INJ 10 ML INJECTION (22:07)
== END 2023-03-23 22:30 | disposition home or self-care (01) ==
PROVIDERS: Emergency Provider Emergency Medicine; PCP Family Medicine
DX: L02.31 Cutaneous abscess of buttock (principal); L03.317 Cellulitis of buttock; Z79.84 Long term (current) use of oral hypoglycemic drugs
CPT/HCPCS: 36415; 72193; 80053; 83605; 85025; 86140; 96365; 96366; 96375; 99285; J3010; J3490; J7030; Q9967

== ENCOUNTER → 2023-03-25 13:12 | Outpatient (BNVA) | payer MEDICARE, MEDICAID, SELFPAY | PROVIDERS: PCP Family Medicine; Visit Provider Surgery | DX: L02.31 Cutaneous abscess of buttock (principal); L03.317 Cellulitis of buttock | CPT/HCPCS: 10060; 10140; 87070; 87075; 87205; 99204 ==

== ENCOUNTER 2023-03-26 09:57 | Outpatient (CLI) | payer MEDICARE, MEDICAID, SELFPAY ==
[2023-03-26 10:23] LABS: Basophils # 0.1 10^3/uL (0.0-0.1); Basophils % 0.6 %; Eosinophils # 0.1 10^3/uL (0.0-0.8); Hematocrit 42.6 % (37.0-47.0); Hemoglobin 14.6 g/dL (11.5-15.3); Lymphocytes # 1.4 10^3/uL (0.8-4.8); Mean Corpuscular HGB Conc 34.3 g/dL (30.0-36.0); Mean Corpuscular Hemoglobin 33.9 pg (28.0-34.0); Mean Corpuscular Volume 98.8 fl (81-99); Mean Platelet Volume 11.1 fL (7.4-10.4); Monocytes # 0.8 10^3/uL (0.2-0.9); Monocytes % 5.9 %; Neutrophils # 10.82 10^3/uL (1.8-7.7); Neutrophils % 80.4 %; Nucleated Red Blood Cells % 0 %; Platelet Count 504 10^3/cmm (130-400); Red Blood Count 4.31 10^6/uL (4.1-5.3); Red Cell Distribution Width 13.7 % (12.1-15.1); White Blood Count 13.5 10^3/uL (4.0-10.0)
[2023-03-26 10:47] LABS: Anion Gap 16.3 (5-19); Blood Urea Nitrogen 19 mg/dL (6-20); Calcium 8.9 mg/dL (8.5-10.5); Carbon Dioxide 26 mmol/L (22-29); Chloride 98 mmol/L (98-107); Glomerular Filtration Rate 87.9 mL/min (90-130); Glucose 229 mg/dL (65-115); Osmolality Calculated 292 mOsm/kg (285-295); Potassium 4.3 mmol/L (3.5-5.1); Sodium 136 mmol/L (136-145)
== END 2023-03-26 09:58 | disposition home or self-care (01) ==
LOC: LAB 10:01
PROVIDERS: PCP Family Medicine; Visit Provider Surgery
DX: L02.31 Cutaneous abscess of buttock (principal); L03.317 Cellulitis of buttock; L02.215 Cutaneous abscess of perineum
CPT/HCPCS: 80048; 85025; 99213

== ENCOUNTER 2023-03-29 10:01 | Outpatient (CLI) | payer MEDICARE, MEDICAID, SELFPAY ==
[2023-03-29 10:44] LABS: Basophils # 0.1 10^3/uL (0.0-0.1); Basophils % 0.8 %; Eosinophils # 0.2 10^3/uL (0.0-0.8); Eosinophils % 1.6 %; Hematocrit 45.9 % (37.0-47.0); Hemoglobin 15.4 g/dL (11.5-15.3); Lymphocytes # 1.6 10^3/uL (0.8-4.8); Lymphocytes % 13.3 %; Mean Corpuscular HGB Conc 33.6 g/dL (30.0-36.0); Mean Corpuscular Hemoglobin 33.3 pg (28.0-34.0); Mean Corpuscular Volume 99.4 fl (81-99); Mean Platelet Volume 10.9 fL (7.4-10.4); Monocytes # 0.8 10^3/uL (0.2-0.9); Monocytes % 6.2 %; Neutrophils # 8.97 10^3/uL (1.8-7.7); Neutrophils % 73.4 %; Nucleated Red Blood Cells % 0 %; Platelet Count 690 10^3/cmm (130-400); Red Blood Count 4.62 10^6/uL (4.1-5.3); Red Cell Distribution Width 13.8 % (12.1-15.1); White Blood Count 12.2 10^3/uL (4.0-10.0)
[2023-03-29 12:44] LABS: Blood Urea Nitrogen 15 mg/dL (6-20); Calcium 8.7 mg/dL (8.5-10.5); Carbon Dioxide 23 mmol/L (22-29); Glucose 212 mg/dL (65-115); Osmolality Calculated 287 mOsm/kg (285-295); Sodium 135 mmol/L (136-145)
[2023-03-29 12:45] LABS: Anion Gap 18.1 (5-19); Chloride 98 mmol/L (98-107); Potassium 4.1 mmol/L (3.5-5.1)
== END 2023-03-29 10:02 | disposition home or self-care (01) ==
LOC: LAB 10:04
PROVIDERS: PCP Family Medicine; Visit Provider Surgery
DX: L02.215 Cutaneous abscess of perineum (principal); Z51.81 Encounter for therapeutic drug level monitoring; Z79.1 Long term (current) use of non-steroidal anti-inflammatories (NSAID); L02.31 Cutaneous abscess of buttock; L03.317 Cellulitis of buttock
CPT/HCPCS: 36415; 80048; 85025; 99214

== ENCOUNTER 2023-03-29 12:11 | Inpatient (IN) | payer MEDICARE, MEDICAID, SELFPAY ==
[2023-03-29] VITALS (9 sets, daily range): BP systolic 122–148; BP diastolic 59–77; PULSE 57–74; RESP 16–18; TEMP 36.3–36.8; O2SAT 91–96; BMI 37.2
--- NOTE | 2023-03-29 14:01 | W.ED.SKABFB ---
HPI - Skin/Abscess/Foreign Bdy General: Chief complaint: Skin/Abscess/Foreign Body Stated complaint: abscess sent by gen surgon Time Seen by Provider: 03/29/23 13:45 History of Present Illness: Patient presents to the ER from Dr. Polk/general surgeon's office for possible admission for surgery tomorrow. Patient has left perineal abscess that was opened up approximately 4 days ago that appears to be getting worse. Patient did not get her antibiotics or have any wound care over the weekend. Dr. Reyes was going to take the patient to the OR tomorrow for further evaluation and treatment. He felt she would benefit from inpatient admission and IV antibiotics. But due to her comorbid conditions he would prefer the hospitalist will admit her and consult him. Review of Systems General: Reports: 10 or more systems reviewed and unremarkable except in HPI and below PFSH ED PFSH: Medical History Arthritis Bilateral chronic knee pain Cervical disc disease Cervical radiculopathy Chronic lumbosacral pain DDD (degenerative disc disease), lumbar Encounter for long-term use of opiate analgesic Generalized anxiety disorder Localized pain of right shoulder joint Long-term use of high-risk medication Lumbar foraminal stenosis Lumbar radiculitis Major depressive disorder, recurrent, in partial remission Morbid obesity Neural foraminal stenosis of cervical spine Opioid contract exists Paresthesia and pain of both upper extremities Psychiatric care Restless legs syndrome Risk for falls Smoker Spondylolisthesis, acquired Surgical History Hx of removal of cyst RIGHT HIP/ DR PINEDA S/P carpal tunnel release S/P cholecystectomy LAPAROSCOPIC 2010 S/P decompression of ulnar nerve DR PAUL 2008? LEFT SIDE S/P partial hysterectomy CANCER S/P shoulder surgery RIGHT Status post craniotomy 2004- SMALL TUMOR REMOVAL / DR PAUL Family History Family/Other Lung disease ASTHMA Other Anemia Clotting disorder Diabetes Heart disease Hypertension Kidney disease Stroke Denies family history of Anesthesia complication Bleeding disorder Social History Smoking and tobacco status: never smoked Smoking risk assessment/counseling performed?: Yes Tobacco counseling given: counseling >3 minutes Alcohol intake: never Substance/Drug Use: never Physical Exam Const: COMMON NORMALS: no acute distress, average body habitus, patient oriented x3, no limitations, alert and well nourished HENMT: COMMON NORMALS: normocephalic, atraumatic, hearing grossly normal bilaterally, Normal external nose present and moist oral mucous membranes HEAD & SCALP: normocephalic and atraumatic NOSE: Normal external nose present Neck/C-Spine: COMMON NORMALS: full ROM, no lymphadenopathy, no meningeal signs, no JVD and Thyroid normal THYROID: Thyroid normal Chest: COMMONS NORMALS: normal inspection of the chest and normal palpation of entire chest wall Resp: COMMON NORMALS: normal respiratory effort, No retractions, No use of accessory muscles and clear to auscultation bilaterally AUSCULTATION: clear to auscultation bilaterally Cardio: COMMON NORMALS: no JVD, regular rate, regular rhythm, S1 normal heart sound present, S2 normal heart sound present and No clicks present (Cardio) RATE: regular rate RHYTHM: regular rhythm HEART SOUNDS: S1 normal heart sound present and S2 normal heart sound present GI: COMMON NORMALS: Normal to inspection, nondistended, normoactive bowel sounds present, Soft to palpation, non-tender and No hepatosplenomegaly present PALPATION: Yes Soft to palpation and Yes No hepatosplenomegaly present Neuro: COMMON NORMALS: patient oriented x3 SENSORIUM/ORIENTATION: Yes alert MENINGEAL SIGNS: Yes no meningeal signs Course Vital Signs: Vital signs: Vital Signs Temperature 98.3 F 03/29/23 12:18 Pulse Rate 74 03/29/23 12:18 Respiratory Rate 16 03/29/23 12:18 Blood Pressure 147/66 03/29/23 12:18 Pulse Oximetry 96 03/29/23 12:18 Oxygen Delivery Me thod Room Air 03/29/23 12:18 MDM - Skin/Abscess/Foreign Bdy Medicial Decision Making Patient presents to the ER for admission for IV antibiotics and further evaluation and treatment in the OR. Dr. Reyes general surgery sent her over here to be admitted to the hospital secondary to multiple comorbid conditions. He did obtain a CBC and a BMP earlier today. Dr. Padilla was consulted and agreed to accept admission inpatient for further evaluation and treatment and Dr. Reyes will be consulted. Differential Diagnosis Likely abscess of skin or subcutaneous tissue and cellulitis; Unlikely viral exanthem, dermatophytosis, urticaria, herpes zoster, allergic reaction to drug, eczema, insect bites, impetigo or contact dermatitis Medical Records I reviewed the patient's medical records. Lab Data I reviewed the patient's lab results. Discharge Plan Discharge Patient Disposition: Admitted As Inpatient Clinical Impression: Abscess of perineum, Diabetes, Neuropathy, Obesity Condition: Stable Prescriptions: No Action Prilosec OTC 20 mg tablet,delayed release (DR/EC) 20 mg PO BID lisinopril-hydrochlorothiazide 20-12.5 mg tablet 2 tab PO DAILY cetirizine 10 mg tablet 10 mg PO DAILY epinephrine [EpiPen 2-Boo] 0.3 mg/0.3 mL auto-injector 0.3 mg IM ONCE PRN (Reason: Allergic Reaction) diphenhydramine HCl [Benadryl Allergy] 25 mg tablet 25 mg PO . NEEDED docusate sodium [Stool Softener] 100 mg capsule 100 mg PO . NEEDED nitroglycerin 0.4 mg tablet, sublingual 0.4 mg SUBLINGUAL Q5M PRN (Reason: Chest Pain) albuterol sulfate [Ventolin HFA] 90 mcg/actuation HFA aerosol inhaler 1 puff INHALATION ONCE PRN (Reason: Shortness Of Breath) metformin 500 mg tablet 1,000 mg PO DAILY rosuvastatin [Crestor] 40 mg tablet 40 mg PO BEDTIME Jardiance 25 mg tablet 25 mg PO DAILY glimepiride 4 mg tablet 4 mg PO DAILY Spiriva Respimat 2.5 mcg/actuation mist 2 puff inhalation BID Patient Comments: pt no longer taking gabapentin 300 mg capsule 300 mg PO TID MDD 3 Qty: 90 1RF (DME) Diabetic Shoes with 3 sets of insoles See Rx Instructions .Route .MEDSUPPLY Qty: 1 0RF Rx Instructions: As directed by HOME oxycodone 10 mg tablet 10 mg PO TID desvenlafaxine succinate [Pristiq] 100 mg tablet extended release 24 hr 200 mg PO DAILY Qty: 180 0RF amoxicillin-pot clavulanate 875-125 mg tablet 1 tab PO BID 7 Days Qty: 14 0RF Ozempic 0.25 mg or 0.5 mg(2 mg/1.5 mL) pen injector See Rx Instructions .ROUTE .COMPLEX Rx Instructions: 0.5 mg subcutaneously WEEKLY hydrocodone-acetaminophen 5-325 mg tablet 1 tab PO Q12H PRN (Reason: pain) Qty: 10 0RF Multi-Vitamin Tablet 1 tab PO DAILY tizanidine 4 mg tablet 4 mg PO DAILY PRN (Reason: Pain) metoprolol tartrate 50 mg tablet 50 mg PO BID Referrals: Roe Shoemaker MD [Primary Care Provider] - Coding Level of Care Code ED Chief Nursing Officer for Armin Lai
--- NOTE | 2023-03-29 14:30 | PM.CONSULT ---
Providers/Reason For Consult Consulting Physician/Specialty*: ER Reason for Consult*: Perineal Abscess Primary Care Provider: Roe Shoemaker MD History of Present Illness History of Present Illness Teresa Kumar is a 52 year old female who is known to my clinic for a left perineal/gluteal abscess. She is postoperative day 4 status post I&D. Surrounding cellulitis has improved, patient was not able to get wound care over the weekend as well as [employer] her antibiotics, during her evaluation today and noticed significant discharge from the wound, therefore I think is appropriate for further debridement in the operating room. Patient has diabetes making her at high risk for wound complications, last glucose was noted to be elevated at 212. Due to these findings it would be appropriate for her to get the strict glucose control and IV antibiotics as inpatient. Review of Systems Narrative: 10 point review of system was done and is negative otherwise noted in HPI Medications/Allergies Home Medications Medication Instructions Recorded Confirmed Last Taken Type albuterol sulfate 90 mcg/actuation 1 puff inhalation ONCE PRN 08/29/19 03/29/23 06/04/22 History aerosol inhaler (Ventolin HFA) Shortness Of Breath cetirizine 10 mg tablet 10 mg PO DAILY 08/29/19 03/29/23 03/21/23 History diphenhydramine HCl 25 mg tablet 25 mg PO . NEEDED 08/29/19 03/29/23 12/27/19 History (Benadryl Allergy) docusate sodium 100 mg capsule 100 mg PO . NEEDED 08/29/19 03/29/23 06/04/22 History (Stool Softener) epinephrine 0.3 mg/0.3 mL 0.3 mg IM ONCE PRN Allergic 08/29/19 03/29/23 12/27/19 History injection, auto-injector (EpiPen Reaction 2-Boo) lisinopril 20 2 tab PO DAILY 08/29/19 03/29/23 03/21/23 History mg-hydrochlorothiazide 12.5 mg tablet metformin 500 mg tablet 1,000 mg PO DAILY 08/29/19 03/29/23 03/21/23 History nitroglycerin 0.4 mg sublingual 0.4 mg sublingual Q5M PRN Chest 08/29/19 03/29/23 Unknown History tablet Pain omeprazole magnesium 20 mg 20 mg PO BID 0103/29/23 03/21/23 History tablet,delayed release (Prilosec OTC) rosuvastatin 40 mg tablet (Crestor) 40 mg PO BEDTIME 08/29/19 03/29/23 03/20/23 History glimepiride 4 mg tablet 4 mg PO DAILY 05/30/20 03/29/23 03/21/23 History empagliflozin 25 mg tablet 25 mg PO DAILY 05/30/21 03/29/23 03/21/23 History (Jardiance) gabapentin 300 mg capsule 300 mg PO TID pain #90 caps 08/27/21 03/29/23 03/21/23 Rx tiotropium bromide 2.5 2 puff inhalation BID 12/01/21 03/29/23 03/21/23 History mcg/actuation mist for inhalation (Spiriva Respimat) Diabetic Shoes with 3 sets of #1 ea 02/18/22 03/29/23 Unknown Rx insoles semaglutide 0.25 mg or 0.5 mg (2 See Rx Instructions .Route .COMPLEX 06/04/22 03/29/23 06/01/22 History mg/1.5 mL) subcutaneous pen injector (Ozempic) oxycodone 10 mg tablet 10 mg PO TID 10/26/22 03/29/23 03/21/23 History desvenlafaxine succinate 100 mg 200 mg PO DAILY #180 tabs 01/25/23 03/29/23 03/21/23 Rx tablet,extended release 24 hr (Pristiq) metoprolol tartrate 50 mg tablet 50 mg PO BID 03/21/23 03/29/23 03/21/23 History multivitamin 1 tab PO DAILY 03/21/23 03/29/23 03/21/23 History tizanidine 4 mg tablet 4 mg PO DAILY PRN Pain 03/21/23 03/29/23 Unknown History hydrocodone 5 mg-acetaminophen 325 1 tab PO Q12H PRN pain #10 tabs 03/23/23 03/29/23 Unknown Rx mg tablet amoxicillin 875 mg-potassium 1 tab PO BID 7 days #14 tabs 03/26/23 03/29/23 Unknown Rx clavulanate 125 mg tablet Allergies Allergy/AdvReac Type Severity Reaction Status Date / Time insect venom Allergy Severe ALGY-Anaphy Verified 03/29/23 10:37 laxis latex Allergy RASH, HIVES Verified 03/29/23 10:37 propoxyphene Allergy HIVES Verified 03/29/23 10:37 [From Darvocet-N] zonisamide [From Zonegran] AdvReac N/V Verified 03/29/23 10:37 PFSH Acute PFSH: Medical History Arthritis Bilateral chronic knee pain Cervical disc disease Cervical radiculopathy Chronic lumbosacral pain DDD (degenerative disc disease), lumbar Encounter for long-term use of opiate analgesic Generalized anxiety disorder Localized pain of right shoulder joint Long-term use of high-risk medication Lumbar foraminal stenosis Lumbar radiculitis Major depressive disorder, recurrent, in partial remission Morbid obesity Neural foraminal stenosis of cervical spine Opioid contract exists Paresthesia and pain of both upper extremities Psychiatric care Restless legs syndrome Risk for falls Smoker Spondylolisthesis, acquired Surgical History Hx of removal of cyst RIGHT HIP/ DR PINEDA S/P carpal tunnel release S/P cholecystectomy LAPAROSCOPIC 2011 S/P decompression of ulnar nerve DR PAUL 2008? LEFT SIDE S/P partial hysterectomy CANCER S/P shoulder surgery RIGHT Status post craniotomy 2004- SMALL TUMOR REMOVAL / DR PAUL Family History Family/Other Lung disease ASTHMA Other Anemia Clotting disorder Diabetes Heart disease Hypertension Kidney disease Stroke Denies family history of Anesthesia complication Bleeding disorder Social History Smoking and tobacco status: never smoked Smoking risk assessment/counseling performed?: Yes Tobacco counseling given: counseling >3 minutes Alcohol intake: never Substance/Drug Use: never Vitals/I&O/Wt Last Vital Signs Temp 98.3 F 03/29/23 12:18 Pulse 74 03/29/23 12:18 Resp 16 03/29/23 12:18 BP 147/66 03/29/23 12:18 Pulse Ox 96 03/29/23 12:18 O2 Del Method Room Air 03/29/23 12:18 Weight last 48 hrs Weight 245 lb Physical Exam Narrative: On the perianal region on the left side there is a 2 cm wound that tracks into the left gluteal region and left perineum there is moderate amount of purulent discharge from the wound as well as some devitalized tissue. Superficial erythema has improved in comparison with previous examination, edema of the soft tissues has also improved. A&P Assessment and plan (1) Abscess of perineum: (2) Diabetes: Qualifiers: Diabetes mellitus complication status: with other specified complication Diabetes mellitus prison insulin use: unspecified rubber and pounder insulin use status Diabetes mellitus type: type 2 Qualified Code(s): E11.69 - Type 2 diabetes mellitus with other specified complication (3) Obesity: Qualifiers: Body mass index: BMI 37.0-37.9 Obesity classification: adult class 2 (BMI 35 - 39.9) Obesity type: due to excess calories Plan This is a 52-year-old female with diabetes, obesity and poor compliance with medical care who is being admitted to the hospital for cellulitis of the perineum and additional debridement of right buttock/perineum abscess. I have explained to the patient the need for additional surgical intervention and the risks involved with the incision drainage and debridement, including the risk of bleeding, infection, delayed wound healing, additional need for debridement, additional wound complications. ?OR tomorrow 7 AM ? Please start IV antibiotics ? N.p.o. at midnight ? Please start tight glycemic control ? Appreciate all current management by hospitalist team Coding Level of Care Code Acute Code for [facility] Fwd Diagnoses Abscess of perineum L02.215 Diabetes E11.69 Diabetes mellitus complication status: with other specified complication Diabetes mellitus rubber and pounder insulin use: unspecified prison insulin use status Diabetes mellitus type: type 2 Obesity E66.9 Body mass index: BMI 37.0-37.9 Obesity classification: adult class 2 (BMI 35 - 39.9) Obesity type: due to excess calories
[2023-03-29 15:11] LABS: Add Urine Microscopic? YES; Bilirubin Urine Neg (Negative); Blood Urine 2+ (Negative); Glucose Urine UA 4+ (Normal); Ketones Urine 1+ (Negative); Leukocyte Esterase Urine Negative (Negative); Nitrate Urine Negative (Negative); Protein Urine Neg (Negative); Specific Gravity, Urine 1.015 (1.005-1.030); Urine Appearance Hazy (CLEAR); Urine Color Yellow (Yellow); Urobilinogen Urine Norm (Negative); pH Urine 5 (5-7)
[2023-03-29 15:12] LABS: Add Urine Culture? Yes; Bacteria Urine TRACE /hpf; Squamous Epithelial Cell Urine 0-4 /hpf (0-5); WBC Urine 0-4 /hpf (0-5)
[2023-03-29] MEDS: piperacillin-tazobactam 3.375 GM in sodium chloride 0.9% (plus) 50 ML IV ×2 (15:56→23:31)
[2023-03-29] MEDS: metoprolol tartrate 50 mg Tablet PO (17:24)
[2023-03-29] MEDS: enoxaparin 40 mg/0.4 mL Syringe SUBCUT (17:24)
[2023-03-29 17:37] LABS: Glucose Point of Care 116 mg/dL (70-110)
--- NOTE | 2023-03-29 18:00 | P.HP_ITS ---
Providers/Chief Complaint Admitting Physician: Gayatri Padilla MD Primary Care Provider: Roe Shoemaker MD Chief Complaint: abscess sent by gen surgon History of Present Illness Teresa Kumar is a 52 year old female with a past medical history of diabetes mellitus, hypertension, was initially diagnosed with a perineal abscess in the ER on March 21, 2023. WBC count was at 18,000. She received 1 dose of IV piperacillin/tazobactam in the emergency room and was then discharged with oral clindamycin with recommendations to follow-up with general surgeon. On March 23, 2023 she presented back to the emergency room with worsening changes of cellulitis and an increase in collection. CT imaging revealed an abscess. It was attempted to be aspirated in the emergency room however no purulence was obtained. She followed up with general surgery on March 25, 2023 he underwent I&D on this day. Abundant purulent drainage was noted. There was a complex cavity measuring about 6 x 3 cm on exam which was deloculated in the office. Cultures were taken which are only revealing some skin tabitha at this time. It appears she remained on clindamycin. By March 29 when she returns for follow-up she was noted to have worsening purulent drainage from the wound. She is now being admitted to the hospital for repeat I& D and iv abx Review of Systems General: Reports: 10 or more systems reviewed and unremarkable except in HPI and below Const: Denies: fever(s), chills or body aches Eyes: Denies: change in vision, blurry vision or photophobia ENMT: Reports: hoarseness; Denies: throat pain, enlarged tonsils, odynophagia or nasal congestion Card: Denies: chest pain, palpitations, irregular heart rhythm, edema, swelling of feet/ankles, lightheadedness, pre-syncope, dyspnea on exertion or orthopnea Resp: Denies: dyspnea, productive cough, non-productive cough, wheezing, stridor, pain on inspiration, change in phlegm color, hemoptysis or chest congestion GI: Denies: abdominal pain, nausea, vomiting, hematemesis, coffee ground emesis, dysphagia, heartburn, diarrhea, constipation, GI cramping, change in stool character, hematochezia or melena : Denies: flank pain, difficulty voiding, dysuria, urinary frequency, urinary urgency, urinary hesitancy or hematuria Musc: Denies: neck pain, back pain, extremity pain, joint swelling, joint warmth or deformity Neuro: Denies: headache(s), numbness in extremities, weakness in extremities, sensory changes, difficulty walking, frequent falls, dizziness, vertigo, behavioral changes, Slurred speech present or seizure-like activity Psych: Denies: anxiety, depression, suicidal ideation or homicidal ideation Endo: Denies: polyuria, polydipsia, tired all the time, cold intolerance or hot flashes Ricci/Lymph: Denies: easy bruising or easy bleeding Medications/Allergies Home Medications Medication Instructions Recorded Confirmed Last Taken Type albuterol sulfate 90 mcg/actuation 1 puff inhalation ONCE PRN 08/29/19 03/29/23 06/04/22 History aerosol inhaler (Ventolin HFA) Shortness Of Breath cetirizine 10 mg tablet 10 mg PO DAILY 08/29/19 03/29/23 03/29/23 History diphenhydramine HCl 25 mg tablet 25 mg PO . NEEDED 08/29/19 03/29/23 12/27/19 History (Benadryl Allergy) docusate sodium 100 mg capsule 100 mg PO . NEEDED 08/29/19 03/29/23 06/04/22 History (Stool Softener) epinephrine 0.3 mg/0.3 mL 0.3 mg IM ONCE PRN Allergic 08/29/19 03/29/23 12/27/19 History injection, auto-injector (EpiPen Reaction 2-Boo) lisinopril 20 2 tab PO DAILY 08/29/19 03/29/23 03/29/23 History mg-hydrochlorothiazide 12.5 mg tablet nitroglycerin 0.4 mg sublingual 0.4 mg sublingual Q5M PRN Chest 08/29/19 03/29/23 Unknown History tablet Pain omeprazole magnesium 20 mg 20 mg PO BID 08/29/19 03/29/23 03/29/23 History tablet,delayed release (Prilosec OTC) rosuvastatin 40 mg tablet (Crestor) 40 mg PO BEDTIME 08/29/19 03/29/23 03/28/23 History glimepiride 4 mg tablet 4 mg PO DAILY 05/30/20 03/29/23 03/29/23 History empagliflozin 25 mg tablet 25 mg PO DAILY 05/30/21 03/29/23 03/29/23 History (Jardiance) gabapentin 300 mg capsule 300 mg PO TID pain #90 caps 08/27/21 03/29/23 03/29/23 Rx tiotropium bromide 2.5 2 puff inhalation BID 12/01/21 03/29/23 03/29/23 History mcg/actuation mist for inhalation (Spiriva Respimat) Diabetic Shoes with 3 sets of #1 ea 02/18/22 03/29/23 Unknown Rx insoles semaglutide 0.25 mg or 0.5 mg (2 See Rx Instructions .Route .COMPLEX 06/04/22 03/29/23 03/24/23 History mg/1.5 mL) subcutaneous pen injector (Ozempic) oxycodone 10 mg tablet 10 mg PO TID 10/26/22 03/29/23 03/29/23 History desvenlafaxine succinate 100 mg 200 mg PO DAILY #180 tabs 01/25/23 03/29/23 03/29/23 Rx tablet,extended release 24 hr (Pristiq) metoprolol tartrate 50 mg tablet 50 mg PO BID 03/21/23 03/29/23 03/29/23 History multivitamin 1 tab PO DAILY 03/21/23 03/29/23 03/29/23 History tizanidine 4 mg tablet 4 mg PO DAILY PRN Pain 03/21/23 03/29/23 Unknown History amoxicillin 875 mg-potassium 1 tab PO BID 7 days #14 tabs 03/26/23 03/29/23 03/29/23 Rx clavulanate 125 mg tablet clindamycin HCl 300 mg capsule 300 mg PO TID 03/29/23 03/29/23 03/29/23 History metformin 500 mg tablet,extended 1,000 mg PO DAILY 03/29/23 03/29/23 03/29/23 History release 24 hr Allergies Allergy/AdvReac Type Severity Reaction Status Date / Time insect venom Allergy Severe ALGY-Anaphy Verified 03/29/23 10:37 laxis latex Allergy RASH, HIVES Verified 03/29/23 10:37 propoxyphene Allergy HIVES Verified 03/29/23 10:37 [From Darvocet-N] zonisamide [From Zonegran] AdvReac N/V Verified 03/29/23 10:37 PFSH Acute PFSH: Medical History Arthritis Bilateral chronic knee pain Cervical disc disease Cervical radiculopathy Chronic lumbosacral pain DDD (degenerative disc disease), lumbar Encounter for long-term use of opiate analgesic Generalized anxiety disorder Localized pain of right shoulder joint Long-term use of high-risk medication Lumbar foraminal stenosis Lumbar radiculitis Major depressive disorder, recurrent, in partial remission Morbid obesity Neural foraminal stenosis of cervical spine Opioid contract exists Paresthesia and pain of both upper extremities Psychiatric care Restless legs syndrome Risk for falls Smoker Spondylolisthesis, acquired Surgical History Hx of removal of cyst RIGHT HIP/ DR PINEDA S/P carpal tunnel release S/P cholecystectomy LAPAROSCOPIC 2010 S/P decompression of ulnar nerve DR PAUL 2008? LEFT SIDE S/P partial hysterectomy CANCER S/P shoulder surgery RIGHT Status post craniotomy 2003- SMALL TUMOR REMOVAL / DR PAUL Family History Family/Other Lung disease ASTHMA Other Anemia Clotting disorder Diabetes Heart disease Hypertension Kidney disease Stroke Denies family history of Anesthesia complication Bleeding disorder Social History Smoking and tobacco status: never smoked Smoking risk assessment/counseling performed?: Yes Tobacco counseling given: counseling >3 minutes Alcohol intake: never Substance/Drug Use: never Vitals/I&O/Wt Last Vital Signs Temp 97.9 F 03/30/23 10:28 Pulse 101 H 03/30/23 10:28 Resp 17 03/30/23 10:28 BP 94/55 03/30/23 10:28 Pulse Ox 96 03/30/23 10:28 O2 Del Method Room Air 03/30/23 08:30 O2 Flow Rate 6 03/30/23 08:05 03/29/23 03/30/23 03/30/23 22:59 06:59 14:59 Intake Total 410 / 410 50 / 460 810 / 810 Output Total 10 Balance 410 / 410 50 / 460 800 / 800 Weight last 48 hrs Weight 111.13 kg Physical Exam Narrative: General: No acute distress, AO x3 HEENT: PERRLA, pupils bilaterally equal and reactive, pallors not present Chest: Normal vesicular breath sounds, no added sounds, equal good air entry bilaterally CVS: S1-S2 regular, no murmurs, no tachycardia, no gallops, no rubs Abdomen: Soft, nontender, no organomegaly, bowel sounds present Neuro: No focal deficits, no facial deformity, AO x3, power 5/5 in all limbs Extremities: perineal wound not opened for exam by me as assessed by surgery previosuly- please see surgical note for exam details Data 03/30/23 04:13 03/30/23 04:13 Micro: Microbiology 03/29/23 14:46 Urine Culture - Preliminary Urine,Clean Catch 03/29/23 15:37 Blood Culture - Preliminary Blood 03/29/23 15:42 Blood Culture - Preliminary Blood SPECIMEN COLLECTED Other data: [facility] [address] [place] [address] DR. AARON BRASHER, [employer] NAME: Teresa Kumar Dayana LOC: [place] U #: [id number] AGE/SX: 52/F ROOM: RE03/25/[address]: Evan Collado : 1970 BED: DIS: FAX #: STATUS: DEP [facility] TLOC: Spec #: [id number] Amy: 03/25/23 Status: COMP Req #: [id number] Recd: 03/25/[address]: Evan Mcnair Src: Buttock SpDesc: Ordered: Abscess Procedure Result Verified Site Abscess Culture Final 03/28/23-1239 FEW MIXED SUPERFICIAL TABITHA ON DAY 3 Abscess Culture Preliminary (changed) 03/27/23-1458 FEW MIXED SUPERFICIAL TABITHA ON DAY 2 Abscess Culture Preliminary (changed) 03/26/23-1740 FEW MIXED SUPERFICIAL TABITHA ON DAY 1 A&P Assessment and plan (1) Abscess of perineum: Patient presented to the emergency room for worsening abscess of the perineum and spite of undergoing I&D as an outpatient and also being on clindamycin. On labs patient has leukocytosis with WBC count at 12.2. There is also some evidence of thrombocytosis which may be related to acute infection. N.p.o. postmidnight for repeat I&D in the OR in the morning. Empiric antibiotic coverage to include Pseudomonas and MRSA with piperacillin/t azobactam and vancomycin. Prior cultures from office I&D on March 25, 2023 with mixed superficial tabitha. Repeat cultures will be sent from I&D tomorrow, however may be low yield given patient has received multiple antibiotics recently. Blood cultures taken and currently pending. CT pelvis from March 23, 2023 shows left perineal subcutaneous fluid collection with surrounding inflammatory changes consistent with abscess and surrounding cellulitis. Measured size approximately 6.1 x 2.1 x 5.8 cm. Of note this predated the I&D. (2) Diabetes: Insulin sliding scale Check HbA1c Qualifiers: Diabetes mellitus complication status: with other specified complication Diabetes mellitus exterminator termite insulin use: unspecified exterminator termite insulin use status Diabetes mellitus type: type 2 Qualified Code(s): E11.69 - Type 2 diabetes mellitus with other specified complication Plan Continue antihypertensives at home dosing Continue statins, albuterol inhalation as needed, metoprolol Attestations Medical Necessity Statement*: Greater than 2 midnight admission is anticipated for need of IV antibiotics, OR procedures tomorrow. Coding Level of Care Code Acute Code for [facility] Fwd Diagnoses Abscess of perineum L02.215 Diabetes E11.69 Diabetes mellitus complication status: with other specified complication Diabetes mellitus exterminator termite insulin use: unspecified custodial insulin use status Diabetes mellitus type: type 2
[2023-03-29 19:40] LABS: Glucose Point of Care 142 mg/dL (70-110)
[2023-03-29] MEDS: gabapentin 300 mg Capsule PO (20:19)
[2023-03-29] MEDS: atorvastatin 40 mg Tablet 80 MG PO (20:19)
--- NOTE | 2023-03-29 20:53 | PC.NURSE ---
Dr. Bai notified that patient states she takes Toradol and Oxycodone at home for pain. Patient c/o pain to buttock abscess and stating that Tylenol won't help. Home dose of Oxycodone ordered.
[2023-03-29] MEDS: oxyCODONE 5 mg IR Tab/Cap 10 MG PO (20:56)
[2023-03-30] VITALS (22 sets, daily range): BP systolic 81–139; BP diastolic 52–85; PULSE 51–101; RESP 12–18; TEMP 36.1–36.9; O2SAT 90–99
[2023-03-30] MEDS: oxyCODONE 5 mg IR Tab/Cap 10 MG PO ×2 (05:13→13:29)
[2023-03-30 05:17] LABS: Hematocrit 45.5 % (37.0-47.0); Hemoglobin 14.7 g/dL (11.5-15.3); Mean Corpuscular HGB Conc 32.3 g/dL (30.0-36.0); Mean Corpuscular Hemoglobin 32.7 pg (28.0-34.0); Mean Corpuscular Volume 101.1 fl (81-99); Mean Platelet Volume 11.1 fL (7.4-10.4); Platelet Count 651 10^3/cmm (130-400); Red Cell Distribution Width 13.9 % (12.1-15.1); White Blood Count 10.4 10^3/uL (4.0-10.0)
--- NOTE | 2023-03-30 05:37 | PC.NURSE ---
[facility]ouins locked in Pyxis per patient request.
[2023-03-30 05:38] LABS: Alanine Aminotransferase 16 U/L (0-33); Albumin Level 3.1 g/dL (3.5-5.2); Alkaline Phosphatase 95 U/L (35-105); Aspartate Amino Transferase 16 U/L (0-32); Blood Urea Nitrogen 14 mg/dL (6-20); Calcium 8.5 mg/dL (8.5-10.5); Carbon Dioxide 27 mmol/L (22-29); Chloride 100 mmol/L (98-107); Globulin 2.3 g/dL (1.3-4.6); Glomerular Filtration Rate 75.3 mL/min (90-130); Glucose 156 mg/dL (65-115); Osmolality Calculated 288 mOsm/kg (285-295); Sodium 137 mmol/L (136-145); Total Bilirubin 0.2 mg/dL (0.15-1.2); Total Protein 5.4 g/dL (6.6-8.7)
[2023-03-30 05:42] LABS: Estmated Average Glucose 163; Hemoglobin A1C 7.3 % (4.0-6.0)
[2023-03-30 05:44] LABS: Anion Gap 14.5 (5-19); Potassium 4.5 mmol/L (3.5-5.1)
[2023-03-30 05:55] LABS: Absolute Eosinophils 0.2 10^3/cmm (0.0-0.7); Absolute Segmented Neutrophil 7.7 10/cmm (1.6-7.1); Eosinophils 2 %; Lymphocytes 17 %; Monocytes Absolute 0.6 10^3/cmm (0.1-0.6); Segmented Neutrophils 74 %; Slide Review Slide Review Perform; Total Cells Counted 100 (0-100)
[2023-03-30 05:56] LABS: Platelet Estimate Increased (Normal)
--- NOTE | 2023-03-30 06:45 | ANES.PREANE2 ---
Pre-Anesthetic Assessment Height/Weight: Height 1.73 m Weight 111.13 kg Temp Pulse Resp BP Pulse Ox O2 Del Method 97.2 F L 54 L 16 129/59 95 Room Air 03/30/23 06:39 03/30/23 06:39 03/30/23 06:39 03/30/23 06:39 03/30/23 06:39 03/30/23 06:39 Operation Date: 03/30/23 07:00 Proposed Procedures p DEBRIDEMENT LEFT GLUTEAL WOUND(Left) - Evan Man MD Familial anesthetic complications: none Was Beta Heidy taken within 24 hours: Yes Was Clonidine taken within 24 hours: N/A Last intake: Intake Last Liquid Date 03/29/23 Last Liquid Time 21:00 Last Solid Date 03/29/23 Last Solid Time 18:00 Social Tobacco and No alcohol Exam alert, oriented x 3, clear to auscultation bilaterally and regular rate & rhythm Airway Mallampati: Class II Dentition: full Pulmonary Chronic Obstructive Pulmonary Disease Metabolic Diabetes Mellitus and Morbid Obesity Anesthetic Plan ASA status: 3 Anesthesia: General Risk of > 500 ml blood loss (7ml/kg in children): No Medications/Allergies Home Medications Medication Instructions Recorded Confirmed Last Taken Type albuterol sulfate 90 mcg/actuation 1 puff inhalation ONCE PRN 08/29/19 03/29/23 06/04/22 History aerosol inhaler (Ventolin HFA) Shortness Of Breath cetirizine 10 mg tablet 10 mg PO DAILY 08/29/19 03/29/23 03/29/23 History diphenhydramine HCl 25 mg tablet 25 mg PO . NEEDED 08/29/19 03/29/23 12/27/19 History (Benadryl Allergy) docusate sodium 100 mg capsule 100 mg PO . NEEDED 08/29/19 03/29/23 06/04/22 History (Stool Softener) epinephrine 0.3 mg/0.3 mL 0.3 mg IM ONCE PRN Allergic 08/29/19 03/29/23 12/27/19 History injection, auto-injector (EpiPen Reaction 2-Boo) lisinopril 20 2 tab PO DAILY 08/29/19 03/29/23 03/29/23 History mg-hydrochlorothiazide 12.5 mg tablet nitroglycerin 0.4 mg sublingual 0.4 mg sublingual Q5M PRN Chest 08/29/19 03/29/23 Unknown History tablet Pain omeprazole magnesium 20 mg 20 mg PO BID 08/29/19 03/29/23 03/29/23 History tablet,delayed release (Prilosec OTC) rosuvastatin 40 mg tablet (Crestor) 40 mg PO BEDTIME 08/29/19 03/29/23 03/28/23 History glimepiride 4 mg tablet 4 mg PO DAILY 05/30/20 03/29/23 03/29/23 History empagliflozin 25 mg tablet 25 mg PO DAILY 05/30/21 03/29/23 03/29/23 History (Jardiance) gabapentin 300 mg capsule 300 mg PO TID pain #90 caps 08/27/21 03/29/23 03/29/23 Rx tiotropium bromide 2.5 2 puff inhalation BID 12/01/21 03/29/23 03/29/23 History mcg/actuation mist for inhalation (Spiriva Respimat) Diabetic Shoes with 3 sets of #1 ea 02/18/22 03/29/23 Unknown Rx insoles semaglutide 0.25 mg or 0.5 mg (2 See Rx Instructions .Route .COMPLEX 06/04/22 03/29/23 03/24/23 History mg/1.5 mL) subcutaneous pen injector (Ozempic) oxycodone 10 mg tablet 10 mg PO TID 10/26/22 03/29/23 03/29/23 History desvenlafaxine succinate 100 mg 200 mg PO DAILY #180 tabs 01/25/23 03/29/23 03/29/23 Rx tablet,extended release 24 hr (Pristiq) metoprolol tartrate 50 mg tablet 50 mg PO BID 03/21/23 03/29/23 03/29/23 History multivitamin 1 tab PO DAILY 03/21/23 03/29/23 03/29/23 History tizanidine 4 mg tablet 4 mg PO DAILY PRN Pain 03/21/23 03/29/23 Unknown History amoxicillin 875 mg-potassium 1 tab PO BID 7 days #14 tabs 03/26/23 03/29/23 03/29/23 Rx clavulanate 125 mg tablet clindamycin HCl 300 mg capsule 300 mg PO TID 03/29/23 03/29/2323 History metformin 500 mg tablet,extended 1,000 mg PO DAILY 03/29/23 03/29/23 03/29/23 History release 24 hr Allergies Allergy/AdvReac Type Severity Reaction Status Date / Time insect venom Allergy Severe ALGY-Anaphy Verified 03/29/23 10:37 laxis latex Allergy RASH, HIVES Verified 03/29/23 10:37 propoxyphene Allergy HIVES Verified 03/29/23 10:37 [From Darvocet-N] zonisamide [From Zonegran] AdvReac N/V Verified 03/29/23 10:37 Current Medications Generic Name Dose Route Start Last Admin Trade Name Freq PRN Reason Stop Dose Admin Atorvastatin Calcium 80 mg 03/29/23 21:00 03/29/23 20:19 Atorvastatin 40 Mg Tablet PO 80 mg BEDTIME NICKO Administration Enoxaparin Sodium 40 mg 03/29/23 16:45 03/29/23 17:24 Enoxaparin 40 Mg/0.4 Ml Syringe SUBCUT 40 mg Q24H NICKO Administration Gabapentin 300 mg 03/29/23 21:00 03/29/23 20:19 Gabapentin 300 Mg Capsule PO 300 mg TID NICKO Administration Piperacillin Sod/Tazobactam 50 mls @ 12.5 mls/hr 03/30/23 00:00 03/30/23 02:55 Sod 3.375 gm/ Sodium Chloride IV Infused Q8H NICKO Infusion Insulin Human Lispro 0 unit 03/29/23 18:00 03/29/23 20:19 Insulin Lispro 100 Unit/1 Ml SUBCUT Not Given WM&BEDTIME NICKO Protocol Metoprolol Tartrate 50 mg 03/29/23 18:00 03/29/23 17:24 Metoprolol Tartrate 50 Mg Tablet PO 50 mg BID NICKO Administration Oxycodone HCl 10 mg 03/29/23 20:53 03/30/23 05:13 Oxycodone 5 Mg Ir Tab/Cap PO 10 mg TID PRN Administration SEVERE PAIN PFSH Anesthesia Medical History Arthritis Bilateral chronic knee pain Cervical disc disease Cervical radiculopathy Chronic lumbosacral pain DDD (degenerative disc disease), lumbar Encounter for long-term use of opiate analgesic Generalized anxiety disorder Localized pain of right shoulder joint Long-term use of high-risk medication Lumbar foraminal stenosis Lumbar radiculitis Major depressive disorder, recurrent, in partial remission Morbid obesity Neural foraminal stenosis of cervical spine Opioid contract exists Paresthesia and pain of both upper extremities Psychiatric care Restless legs syndrome Risk for falls Smoker Spondylolisthesis, acquired Surgical History Hx of removal of cyst RIGHT HIP/ DR PINEDA S/P carpal tunnel release S/P cholecystectomy LAPAROSCOPIC 2011 S/P decompression of ulnar nerve DR PAUL 2008? LEFT SIDE S/P partial hysterectomy CANCER S/P shoulder surgery RIGHT Status post craniotomy 2004- SMALL TUMOR REMOVAL / DR PAUL Family History Family/Other Lung disease ASTHMA Other Anemia Clotting disorder Diabetes Heart disease Hypertension Kidney disease Stroke Denies family history of Anesthesia complication Bleeding disorder Social History Smoking and tobacco status: never smoked Smoking risk assessment/counseling performed?: Yes Tobacco counseling given: counseling >3 minutes Alcohol intake: never Substance/Drug Use: never Data Anesthesia 03/30/23 04:13 03/30/23 04:13 Short CBC 03/30/23 Range/Units 04:13 WBC 10.4 H (4.0-10.0) 10^3/uL Hgb 14.7 (11.5-15.3) g/dL Hct 45.5 (37.0-47.0) % MCV 101.1 H (81-99) fl Plt Count 651 H (130-400) 10^3/cmm BMP 03/30/23 04:13 Sodium 137 Potassium 4.5 Chloride 100 Carbon Dioxide 27 BUN 14 Creatinine 0.8 Glucose 156 H Calcium 8.5 Liver Function 03/30/23 Range/Units 04:13 Total Bilirubin 0.2 (0.15-1.2) mg/dL AST 16 (0-32) U/L ALT 16 (0-33) U/L Alkaline Phosphatase 95 (35-105) U/L Albumin 3.1 L (3.5-5.2) g/dL Urine 03/29/23 Range/Units 14:46 Urine Color Yellow (Yellow) Urine Appearance Hazy A (CLEAR) Urine pH 5 (5-7) Ur Specific [place] 1.015 (1.005-1.030) Urine Protein Neg (Negative) Urine Glucose (UA) 4+ H (Normal) Urine Ketones 1+ H (Negative) Urine Nitrate Negative (Negative) Urine Bilirubin Neg (Negative) Ur Leukocyte Esterase Negative (Negative) Urine RBC 5-10 H (0-2) /hpf Urine WBC 0-4 H (0-5) /hpf Microbiology 03/29/23 15:37 Blood Culture - Preliminary Blood 03/29/23 15:42 Blood Culture - Preliminary Blood SPECIMEN COLLECTED Cardiac Studies: No Data to Display
[2023-03-30] MEDS: sodium chloride 0.9% 1,000 ML 30 ML IV (07:16)
--- NOTE | 2023-03-30 08:23 | PM.OP ---
Operative Report Date of procedure: March 30, 2023 Pre-op diagnosis: Left gluteal/perineal abscess Post-op diagnosis: Same Post-op findings: Large abscess cavity tracking to the left gluteal region and to the left perineum, measuring 9 x 4 cm Minimal devitalized tissue over the base of the wound, excised and sent for culture Minimal discharge after packing was removed, sent for culture Procedure done: Debridement of left gluteal/perineal abscess cavity to the level of the subcutaneous tissue. Specimens removed/disposition: Tissue cultures, wound cultures Surgeon: Evan Man MD Estimated blood loss: 10 cc Complications: None Findings: Large abscess cavity tracking to the left gluteal region and to the left perineum, measuring 9 x 4 cm Minimal devitalized tissue over the base of the wound, excised and sent for culture Minimal discharge after packing was removed, sent for culture Brief History: This is a 52-year-old female with history of diabetes who presented with a left perineal abscess which was drained last week as an outpatient. She received local wound care, despite wound care and oral antibiotics no significant resolution of the abscess cellulitis was noted, and after patient needs a wound care appointment over the weekend and worsening discharge was noted from the wound. Therefore decision was made to admit the patient for IV antibiotics and additional debridement. I discussed all the risk and benefits of the debridement with the patient as documented in my previous consult note. Procedure: Patient was taken to the OR, intubated by anesthesia without complications. The patient was then placed on the left lateral decubitus position. The very anal region was prepped and draped in the usual sterile fashion. A timeout was conducted. Finger probing of the wound was done, at this point the wound was measured to be 2.5 x 2 cm located about 2 cm from the anal margin on the left gluteal region. Cultures were taken from the wound. The cavity was noted to be tracking up into the gluteal region, therefore decision was made to extend the previous I&D wound 3 cm in the cranial direction, to unroofed the abscess cavity. This was done with a electrocautery. Once the abscess cavity was accessed, minimal amount of devitalized tissue was noted on the base. This tissue was excised with sharp instrument and sent to pathology. I then proceeded to debride and deloculated the full abscess cavity. New measurements of the wound were taken after debridement. The surgical incision measured 6 x 3 cm, the abscess cavity measured 9 x 4 cm with 3 cm cranial undermining of the skin. Debridement was done with blunt instrument and sponge. The wound was debrided to healthy bleeding tissue. Hemostasis was obtained. I irrigated then the cavity with a mix of Betadine and saline. 1.5 L of the solution was used. Once the cavity was completely irrigated we proceeded with packing with help inch iodoform. Sterile dressing was then applied. The patient tolerated well the procedure was extubated and transferred to the postanesthesia care unit in stable condition. I was present and scrubbed during the complete procedure and performed the complete procedure.
--- NOTE | 2023-03-30 08:30 | ANE.PACU2 ---
Inpatient post-anesthesia follow up: Airway intact: Yes Vital signs: Temperature 97.9 F Pulse Rate 101 Respiratory Rate 17 Blood Pressure 94/55 Pulse Oximetry 96 Oxygen Delivery Me thod Room Air Oxygen Flow Rate 6 Fraction of Inspir ed Oxygen Hydration adequate: Yes Nausea and vomiting: Yes Pain level: 1 Mental status: Baseline
--- NOTE | 2023-03-30 08:32 | PM.MISC ---
Miscellaneous Note Purpose of Documentation: Postoperative care Note: Wound was debrided this morning. Next dressing change planned for tomorrow at the bedside. I have discussed this case with hospitalist team, we have agreed to increase coverage of antibiotics adding vancomycin. Once wound cultures are available we will de-escalate antibiotics. We will start working on setting up VNS for the patient.
--- NOTE | 2023-03-30 09:41 | PC.CHAP ---
Pastoral Care Encounter/Spiritual Assessment Type of Contact [] Declined nurse licensed practical visit [] Patient/Family/Request visit [] Outpatient visit [] Follow-up visit [] Physician referral [] Code/Alert [] Routine visit [] Staff referral [] Actively dying [x] Patient sleeping [] Family support [] [] Out of room [] Palliative care [] [] Receiving care in room [] Pre-surgical visit [] Trauma [] Long length of stay [] ICU visit [] Other: Relational/Emotional Strength [] Patient feels connected with others/family/visitors/staff [] Distress [] Loneliness/isolation [] Abandonment Spirituality of Patient [] Person of Manda [] Attends Orthodox of their Manda [] Believes in Prayer [] Reads Bible or Mormonism materials [] There are Spiritual issues to be addressed Change Management Director Interventions [] Prayer [] Active listening [] Non-anxious presence [] Spiritual/emotional support [] Crisis/trauma care [] Spiritual counseling [] Bereavement support [] Provided bereavement packet [] Provided Bible/devotional materials [] Provided toy/stuffed animal, coloring book to patient or family member [] Provided Communion [] Anointing/[place] [] Salvation [] Completed spiritual assessment [] Other: Impact on Illness or Injury [] Angry [] Fearful [] Anxious [] Often cries [] Exhaustion [] Unable to work [] Unable to attend restoration [] Unable to walk/stand [] Unable to read [] Unable to drive [] Unable to eat/drink [] Unable to sleep [] Unable to be with family [] Patient intubated [] Other: Summary Time spent with patient
[2023-03-30] MEDS: vancomycin 1,750 MG/350 ML PIGGYBACK 233.33 MG IV (10:33)
[2023-03-30 11:16] LABS: Glucose Point of Care 229 mg/dL (70-110)
[2023-03-30] MEDS: insulin lispro 100 unit/1 mL SUBCUT ×3 (12:28→21:30)
[2023-03-30] MEDS: sodium chloride 0.9% 500 ML 999 ML IV (12:29)
[2023-03-30] MEDS: desvenlafaxine 50 mg Tablet 200 MG PO (13:19)
--- NOTE | 2023-03-30 15:16 | PM.PN ---
Subjective Subjective: Status post I&D in the OR today. Cultures taken. Currently pending. Blood pressure ranging 80-110 Medications: Reviewed: Yes Vitals/I&O/Wt Last Vital Signs Temp 98.1 F 03/30/23 12:00 Pulse 76 03/30/23 12:00 Resp 16 03/30/23 13:29 BP 122/59 03/30/23 12:00 Pulse Ox 93 03/30/23 12:00 O2 Del Method Room Air 03/30/23 08:30 03/30/23 03/30/23 03/30/23 06:59 14:59 22:59 Intake Total 50 / 460 1900 / 1900 Output Total Balance 50 / 460 1890 / 1890 Weight last 48 hrs Weight 111.13 kg Physical Exam Narrative: General: No acute distress, AO x3 HEENT: PERRLA, pupils bilaterally equal and reactive, pallors not present Chest: Normal vesicular breath sounds, no added sounds, equal good air entry bilaterally CVS: S1-S2 regular, no murmurs, no tachycardia, no gallops, no rubs Abdomen: Soft, nontender, no organomegaly, bowel sounds present Neuro: No focal deficits, no facial deformity, AO x3, power 5/5 in all limbs Extremities: perineal wound not opened for exam by me post operatively Data 03/30/23 04:13 03/30/23 04:13 Micro: Microbiology 03/29/23 14:46 Urine Culture - Preliminary Urine,Clean Catch 03/29/23 15:37 Blood Culture - Preliminary Blood 03/29/23 15:42 Blood Culture - Preliminary Blood SPECIMEN COLLECTED A&P Assessment and plan (1) Abscess of perineum: Patient presented to the emergency room for worsening abscess of the perineum and spite of undergoing I&D as an outpatient and also being on clindamycin. s/p I&D in the OR this morning. Empiric antibiotic coverage to include Pseudomonas and MRSA with piperacillin/tazobactam and vancomycin. Prior cultures from office I&D on March 25, 2023 with mixed superficial tabitha. Repeat cultures taken today, yield may be low Blood cultures taken and currently pending. Blood cx reported as positive however no organisms on gram stain. will await final cx , likely false positive Op note today with Large abscess cavity tracking to the left gluteal region and to the left perineum, measuring 9 x 4 cm Minimal devitalized tissue over the base of the wound Continue wound care per surgery recommendations Post discharge plan to d/c with with wound care nursing vs set up with [facility]. (2) Diabetes: Insulin sliding scale to continue FS today between 116-142 Hba1c 7.3 Qualifiers: Diabetes mellitus complication status: with other specified complication Diabetes mellitus halfway insulin use: unspecified halfway insulin use status Diabetes mellitus type: type 2 Qualified Code(s): E11.69 - Type 2 diabetes mellitus with other specified complication Plan Soft SBP tis am, per patient has been rangin 80-90 at home more recently Denies any syncope or presyncopal symptoms NS 500 cc bolus today D/c CHERIE/HCTZ reduce metoprolol to 25 BID from 50 BID Attestations Medical Necessity Statement*: continued admission for iv abx, adjust antihypertensives, s/p I&D today, await blood and abscess cx Coding Level of Care Code Acute Code for Chg Fwd Diagnoses Abscess of perineum L02.215 Diabetes E11.69 Diabetes mellitus complication status: with other specified complication Diabetes mellitus halfway insulin use: 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
[2023-03-30] MEDS: gabapentin 300 mg Capsule PO ×2 (15:52→20:49)
[2023-03-30] MEDS: enoxaparin 40 mg/0.4 mL Syringe SUBCUT (15:52)
[2023-03-30] MEDS: piperacillin-tazobactam 3.375 GM in sodium chloride 0.9% (plus) 50 ML IV (15:54)
[2023-03-30 17:27] LABS: Glucose Point of Care 176 mg/dL (70-110)
[2023-03-30] MEDS: metoprolol tartrate 50 mg Tablet 25 MG PO (17:30)
[2023-03-30] MEDS: atorvastatin 40 mg Tablet 80 MG PO (20:48)
[2023-03-30 21:30] LABS: Glucose Point of Care 200 mg/dL (70-110)
[2023-03-30] MEDS: vancomycin 1,750 MG/350 ML PIGGYBACK 233 MG IV (23:21)
[2023-03-31] VITALS (9 sets, daily range): BP systolic 138–158; BP diastolic 66–84; PULSE 58–64; RESP 16–18; TEMP 36.1–36.8; O2SAT 91–94
[2023-03-31] MEDS: piperacillin-tazobactam 3.375 GM in sodium chloride 0.9% (plus) 50 ML IV ×3 (01:09→15:24)
[2023-03-31 05:05] LABS: Hematocrit 42.5 % (37.0-47.0); Mean Corpuscular HGB Conc 32.9 g/dL (30.0-36.0); Mean Corpuscular Hemoglobin 33.3 pg (28.0-34.0); Mean Platelet Volume 10.7 fL (7.4-10.4); Platelet Count 630 10^3/cmm (130-400); Red Blood Count 4.21 10^6/uL (4.1-5.3); Red Cell Distribution Width 14.3 % (12.1-15.1)
[2023-03-31 05:17] LABS: Anion Gap 15.5 (5-19); Blood Urea Nitrogen 18 mg/dL (6-20); Calcium 8.4 mg/dL (8.5-10.5); Carbon Dioxide 23 mmol/L (22-29); Chloride 103 mmol/L (98-107); Glomerular Filtration Rate 87.9 mL/min (90-130); Glucose 178 mg/dL (65-115); Osmolality Calculated 290 mOsm/kg (285-295); Potassium 4.5 mmol/L (3.5-5.1); Sodium 137 mmol/L (136-145)
[2023-03-31 05:42] LABS: Absolute Segmented Neutrophil 7.2 10/cmm (1.6-7.1); Eosinophils 0 %; Lymphocytes 17 %; Monocytes Absolute 0.4 10^3/cmm (0.1-0.6); Platelet Estimate Increased (Normal); Segmented Neutrophils 72 %; Total Cells Counted 100 (0-100)
[2023-03-31 06:51] LABS: Glucose Point of Care 191 mg/dL (70-110)
[2023-03-31] MEDS: metoprolol tartrate 50 mg Tablet 25 MG PO ×2 (08:08→17:10)
[2023-03-31] MEDS: gabapentin 300 mg Capsule PO ×3 (08:08→21:09)
[2023-03-31] MEDS: pantoprazole DR 40 mg Tablet PO (08:08)
[2023-03-31] MEDS: oxyCODONE 5 mg IR Tab/Cap 10 MG PO (08:14)
[2023-03-31] MEDS: insulin lispro 100 unit/1 mL SUBCUT ×4 (08:32→21:09)
[2023-03-31] MEDS: desvenlafaxine 50 mg Tablet 200 MG PO (09:25)
[2023-03-31 11:36] LABS: Glucose Point of Care 171 mg/dL (70-110)
[2023-03-31] MEDS: vancomycin 1,750 MG/350 ML PIGGYBACK 233 MG IV ×2 (11:45→22:22)
[2023-03-31] MEDS: HYDROmorphone 1 mg/mL INJ 1 mL 0.4 MG IVP (12:36)
--- NOTE | 2023-03-31 14:54 | P.PN_ITS ---
Subjective Subjective: [place] was changed by general surgery today, wound is healing well. BP improved today, trending towards HTN SBP 150s this morning. HR 60s. FS well controlled Medications: Reviewed: Yes Vitals/I&O/Wt Last Vital Signs Temp 98.0 F 03/31/23 11:21 Pulse 64 03/31/23 11:21 Resp 16 03/31/23 12:36 BP 138/84 03/31/23 11:21 Pulse Ox 92 03/31/23 11:21 O2 Del Method Room Air 03/31/23 11:21 O2 Flow Rate 6 03/30/23 08:05 03/30/23 03/31/23 03/31/23 22:59 06:59 14:59 Intake Total 890 / 2790 1280 / 1280 Balance 890 / 2780 1280 / 1280 Physical Exam Narrative: General: No acute distress, AO x3 HEENT: PERRLA, pupils bilaterally equal and reactive, pallors not present Chest: Normal vesicular breath sounds, no added sounds, equal good air entry bilaterally CVS: S1-S2 regular, no murmurs, no tachycardia, no gallops, no rubs Abdomen: Soft, nontender, no organomegaly, bowel sounds present Neuro: No focal deficits, no facial deformity, AO x3, power 5/5 in all limbs Data 03/31/23 04:37 03/31/23 04:37 Micro: Microbiology 03/30/23 08:07 Gram Stain - Final Buttock Tissue Culture - Preliminary 03/29/23 14:46 Urine Culture - Final Urine,Clean Catch 03/30/23 08:07 Gram Stain - Final Buttock 03/29/23 15:42 Blood Culture - Preliminary Blood NEGATIVE TO DATE [id number] U #: [id number] AGE/SX: 52/F ROOM: 253 RE03/29/[address]: Gayatri Padilla MD : 1970 BED: 2 DIS: FAX #: STATUS: ADM IN TLOC: Spec #: [id number] Amy: 03/29/23-1536 Status: RES Req #: [id number] Recd: 03/29/23-[address]: Heath Rogers DO Src: Blood SpDesc: Ordered: Bcult Procedure Result Verified Site Blood Culture Preliminary 03/30/23 1 OF 4 BOTTLES POSITIVE DIRECT GRAM STAIN: NO MICROORGANISM SEEN RESULTS TO FOLLOW CRITICAL RESULT YES/NO: NO Blood Culture Preliminary (changed) 03/29/23-1550 SPECIMEN COLLECTED NAME: Teresa Kumar LOC: [facility] U #: [id number] AGE/SX: 52/F ROOM: 253 RE03/29/[address]: Gayatri Padilla MD : 1970 BED: 2 DIS: FAX #: STATUS: ADM IN TLOC: Spec #: [id number] Amy: 03/29/23 Status: RES Req #: [id number] Recd: 03/29/[address]: Heath Rogers DO Src: Blood SpDesc: Ordered: Bcult Procedure Result Verified Site Blood Culture Preliminary 03/30/23 NEGATIVE TO DATE Blood Culture Preliminary (changed) 03/29/23 SPECIMEN COLLECTED NAME: Teresa Kumar LOC: [facility] U #: [id number] AGE/SX: 52/F ROOM: 253 RE03/29/[address]: Gayatri Padilla MD : 1970 BED: 2 DIS: FAX #: STATUS: ADM IN TLOC: Spec #: [id number] Amy: 03/30/23 Status: RES Req #: [id number] Recd: 03/30/[address]: Evan Mcnair Src: Buttock SpDesc: Ordered: Tissue Cult GS, Anaer Procedure Result Verified Site Gram Stain Final 03/30/23 Result MODERATE WHITE BLOOD CELLS HEAVY GRAM POSITIVE COCCI IN PAIRS & CLUSTERS FEW GRAM NEGATIVE RODS FEW GRAM POSITIVE RODS Anaerobic Culture PENDING Tissue Culture Preliminary 03/31/23 MODERATE GROWTH PRESUMPTIVE GAMMA-HEMOLYTIC STREP ON DAY 1 RESULTS TO FOLLOW A&P Assessment and plan (1) Abscess of perineum: Patient presented to the emergency room for worsening abscess of the perineum and spite of undergoing I&D as an outpatient and also being on clindamycin. s/p I&D in the OR on 03/30 Cx from Or thus gar with gamma hemolytic strep + polymicrobial gram stain Empiric antibiotic coverage to include Pseudomonas and MRSA with piperacillin/tazobactam and vancomycin. Blood cultures taken and currently pending. Blood cx reported as positive however no organisms on gram stain. 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
--- NOTE | 2023-03-31 15:09 | PM.PN ---
Subjective Subjective: postoperative day 1 status post debridement of left gluteal/perineal abscess cavity. Patient doing well, minimal serosanguineous fluid noted from the wound. Pain has improved, sensation of fullness has improved. Vitals/I&O/Wt Last Vital Signs Temp 98.0 F 03/31/23 11:21 Pulse 64 03/31/23 11:21 Resp 16 03/31/23 12:36 BP 138/84 03/31/23 11:21 Pulse Ox 92 03/31/23 11:21 O2 Del Method Room Air 03/31/23 11:21 O2 Flow Rate 6 03/30/23 08:05 03/31/23 03/31/23 03/31/23 06:59 14:59 22:59 Intake Total 1280 / 1280 Balance 1280 / 1280 Physical Exam : OTHER: On the left perianal region there is a 4 cm incision, the incision was packed, packing was removed no evidence of further purulence, the tissue appeared to be healthy. The wound was repacked with plain packing. 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 Significant improvement on swelling, erythema, signs of infection. White count has returned to normal, glucose control has been appropriate. Wound is healing fine, no evidence of further purulence, likely will be able to discharge tomorrow after dressing change. All other management per hospitalist team. Attestations Medical Necessity Statement*: Patient will require 24 hours more of inpatient observation for 1 more dressing change and IV antibiotics. Coding Level of Care Code Acute Code for Chg Fwd Diagnoses Abscess of perineum L02.215 Diabetes E11.69 Diabetes mellitus complication status: with other specified complication Diabetes mellitus buttermaker continuous churn insulin use: unspecified longterm insulin use status Diabetes mellitus type: type 2 Obesity E66.9 Body mass index: BMI 37.0-37.9 Obesity classification: adult class 2 (BMI 35 - 39.9) Obesity type: due to excess calories
[2023-03-31 16:53] LABS: Glucose Point of Care 210 mg/dL (70-110)
[2023-03-31] MEDS: enoxaparin 40 mg/0.4 mL Syringe SUBCUT (17:09)
[2023-03-31 20:53] LABS: Glucose Point of Care 191 mg/dL (70-110)
[2023-03-31] MEDS: atorvastatin 40 mg Tablet 80 MG PO (21:09)
--- NOTE | 2023-03-31 21:13 | PC.NURSE ---
Patient rates her pain 7/10 at this time. Patient states she does not want her PRN Oxy at this time.
[2023-03-31 22:14] LABS: Vancomycin Trough 17.3 ug/mL (10-15)
[2023-04-01] VITALS: BP 150/73; PULSE 58; RESP 18; TEMP 37.1; O2SAT 92
[2023-04-01] MEDS: piperacillin-tazobactam 3.375 GM in sodium chloride 0.9% (plus) 50 ML IV ×2 (00:36→08:22)
[2023-04-01 05:00] VITALS: BP 145/68; PULSE 54; RESP 16; TEMP 37; O2SAT 95
[2023-04-01 05:32] LABS: Glucose Point of Care 168 mg/dL (70-110)
[2023-04-01 06:36] LABS: Glucose Point of Care 182 mg/dL (70-110)
[2023-04-01 08:00] VITALS: BP 139/66; PULSE 62; PULSE 64; RESP 16; RESP 18; TEMP 36.5; O2SAT 93; O2SAT 96
[2023-04-01] MEDS: lisinopril 10 mg Tablet PO (08:23)
[2023-04-01] MEDS: insulin lispro 100 unit/1 mL SUBCUT (08:23)
[2023-04-01] MEDS: pantoprazole DR 40 mg Tablet PO (08:23)
[2023-04-01] MEDS: metoprolol tartrate 50 mg Tablet 25 MG PO (08:23)
[2023-04-01] MEDS: gabapentin 300 mg Capsule PO (08:23)
[2023-04-01 08:38] VITALS: RESP 16
[2023-04-01] MEDS: oxyCODONE 5 mg IR Tab/Cap 10 MG PO (08:38)
[2023-04-01] MEDS: desvenlafaxine 50 mg Tablet 200 MG PO (08:38)
--- NOTE | 2023-04-01 09:46 | P.DS_ITS ---
Discharge Providers Date of Admission: 03/29/23 14:16 Date of Discharge: April 01, 2023 Attending Provider at Admission: Gayatri Padilla MD Attending Provider at Discharge: Gayatri Padilla MD Primary Care Provider: Roe Shoemaker MD Diagnoses at Discharge Discharge Diagnosis (1) Abscess of perineum: Status: Acute (2) Diabetes: Status: Acute Qualifiers: Diabetes mellitus complication status: with other specified complication Diabetes mellitus terminal system operator insulin use: unspecified terminal system operator insulin use status Diabetes mellitus type: type 2 Qualified Code(s): E11.69 - Type 2 diabetes mellitus with other specified complication (3) Obesity: Status: Acute Qualifiers: Body mass index: BMI 37.0-37.9 Obesity classification: adult class 2 (BMI 35 - 39.9) Obesity type: due to excess calories Reason for Visit Reason for Visit: abscess sent by [facility] Course Hospital Course 52-year-old lady with a history of diabetes mellitus was admitted to the hospital on March 29, 2023 with worsening abscess of the perineum in spite of undergoing outpatient I&D and p.o. antibiotic therapy with clindamycin. She was taken to the operating room on March 30, 2023. Intraoperatively she was found to have a large abscess cavity tracking to the left gluteal region in the left perineum measuring 9 x 4 cm. There was devitalized tissue over the base of the wound which was excised. Cultures so far have shown, hemolytic Streptococcus, low yield cultures given that patient had outpatient antibiotics previously. She tolerated the procedure well. Dressing has been changed twice during the course of admission. She is being discharged today on p.o. Augmentin and Bactrim for the next 10 days. Follow-up with general surgery in 1 week. Home health has been arranged for wound care and dressing changes. Her blood culture from March 29, 2023 was reported as positive, however no organisms were eventually seen on Gram stain and there has been no growth thereafter. Suspect this to be a false positive. Return to the ER in case of any worsening fever, increased purulence or discharge from her wound. Her heart rate upon presentation ranged between 52 to 55 bpm, metoprolol was dose adjusted from 50 mg twice daily to 25 mg twice daily. Additionally she was noted to be hypotensive on her home regimen of antihypertensives. Lisinopril HCTZ was discontinued and patient is being discharged on lisinopril 10 mg. She is advised to keep a blood pressure log by checking her blood pressure twice a day maintaining her diary and taking it for review to her primary care provider in 1 week. Physical Exam Narrative: General: No acute distress, AO x3 HEENT: PERRLA, pupils bilaterally equal and reactive, pallors not present Chest: Normal vesicular breath sounds, no added sounds, equal good air entry bilaterally CVS: S1-S2 regular, no murmurs, no tachycardia, no gallops, no rubs Abdomen: Soft, nontender, no organomegaly, bowel sounds present Neuro: No focal deficits, no facial deformity, AO x3, power 5/5 in all limbs Discharge Data Studies Completed and Pending Pending at discharge Category Date Time Status Anaerobic Culture Routine Lab 03/30/23 08:07 Results Blood Culture Stat Lab 03/29/23 15:37 Results Tissue Culture and Gram Stain Routine Lab 03/30/23 08:07 Results Wound Culture and Gram Stain Routine Lab 03/30/23 08:07 Results Laboratory Results WBC 10.0 10^3/uL (4.0-10.0) 03/31/23 04:37 RBC 4.21 10^6/uL (4.1-5.3) 03/31/23 04:37 Hgb 14.0 g/dL (11.5-15.3) 03/31/23 04:37 Hct 42.5 % (37.0-47.0) 03/31/23 04:37 MCV 101.0 fl (81-99) H 03/31/23 04:37 MCH 33.3 pg (28.0-34.0) 03/31/23 04:37 MCHC 32.9 g/dL (30.0-36.0) 03/31/23 04:37 RDW 14.3 % (12.1-15.1) 03/31/23 04:37 Plt Count 630 10^3/cmm (130-400) H 03/31/23 04:37 MPV 10.7 fL (7.4-10.4) H 03/31/23 04:37 Lymph % (Auto) Not Reportable 03/31/23 04:37 Amelia % (Auto) Not Reportable 03/31/23 04:37 Lymph # (Auto) Not Reportable 03/31/23 04:37 Amelia # (Auto) Not Reportable 03/31/23 04:37 Total Counted 100 (0-100) 03/31/23 04:37 Atypical Lymphs % Not Reportable 03/31/23 04:37 Segmented Neutrophils 72 % 03/31/23 04:37 Abs Segm Neuts (Man) 7.2 10/cmm (1.6-7.1) H 03/31/23 04:37 Band Neutrophils Not Reportable 03/31/23 04:37 Lymphocytes (Manual) 17 % 03/31/23 04:37 Monocytes (Manual) 4.0 % 03/31/23 04:37 Absolute Monocytes 0.4 10^3/cmm (0.1-0.6) 03/31/23 04:37 Eosinophils (Manual) 0 % 03/31/23 04:37 Absolute Eosinophils 0.0 10^3/cmm (0.0-0.7) 03/31/23 04:37 Basophils (Manual) 0.0 % 03/31/23 04:37 Absolute Basophils 0.0 10^3/cmm (0.0-0.2) 03/31/23 04:37 Metamyelocytes 3.0 % 03/31/23 04:37 Myelocytes 3.0 % 03/31/23 04:37 Promyelocytes 1.0 % 03/31/23 04:37 Platelet Estimate Increased (Normal) H 03/31/23 04:37 Sodium 137 mmol/L (136-145) 03/31/23 04:37 Potassium 4.5 mmol/L (3.5-5.1) 03/31/23 04:37 Chloride 103 mmol/L (98-107) 03/31/23 04:37 Carbon Dioxide 23 mmol/L (22-29) 03/31/23 04:37 Anion Gap 15.5 (5-19) 03/31/23 04:37 BUN 18 mg/dL (6-20) 03/31/23 04:37 Creatinine 0.7 mg/dL (0.5-0.9) 03/31/23 04:37 GFR Calculation 87.9 mL/min (90-130) L 03/31/23 04:37 Glucose 178 mg/dL (65-115) H 03/31/23 04:37 POC Glucose 182 mg/dL (70-110) H 04/01/23 06:26 Estimat Average Glucose 163 03/30/23 04:13 Hemoglobin A1c 7.3 % (4.0-6.0) H 03/30/23 04:13 Calculated Osmolality 290 mOsm/kg (285-295) 03/31/23 04:37 Calcium 8.4 mg/dL (8.5-10.5) L 03/31/23 04:37 Total Bilirubin 0.2 mg/dL (0.15-1.2) 03/30/23 04:13 AST 16 U/L (0-32) 03/30/23 04:13 ALT 16 U/L (0-33) 03/30/23 04:13 Alkaline Phosphatase 95 U/L (35-105) 03/30/23 04:13 Total Protein 5.4 g/dL (6.6-8.7) L 03/30/23 04:13 Albumin 3.1 g/dL (3.5-5.2) L 03/30/23 04:13 Globulin 2.3 g/dL (1.3-4.6) 03/30/23 04:13 Urine Color Yellow (Yellow) 03/29/23 14:46 Urine Appearance Hazy (CLEAR) A 03/29/23 14:46 Urine pH 5 (5-7) 03/29/23 14:46 Ur Specific [place] 1.015 (1.005-1.030) 03/29/23 14:46 Urine Protein Neg (Negative) 03/29/23 14:46 Urine Glucose (UA) 4+ (Normal) H 03/29/23 14:46 Urine Ketones 1+ (Negative) H 03/29/23 14:46 Urine Blood 2+ (Negative) H 03/29/23 14:46 Urine Nitrate Negative (Negative) 03/29/23 14:46 Urine Bilirubin Neg (Negative) 03/29/23 14:46 Urine Urobilinogen Norm mg/dL (Negative) 03/29/23 14:46 Ur Leukocyte Esterase Negative (Negative) 03/29/23 14:46 Urine RBC 5-10 /hpf (0-2) H 03/29/23 14:46 Urine WBC 0-4 /hpf (0-5) H 03/29/23 14:46 Ur Squamous Epith Cells 0-4 /hpf (0-5) H 03/29/23 14:46 Amorphous Sediment Not Reportable 03/29/23 14:46 Urine Bacteria Trace /hpf (NONE) 03/29/23 14:46 Urine Yeast 3+ /hpf H 03/29/23 14:46 Vancomycin Trough 17.3 ug/mL (10-15) H 03/31/23 21:23 Vitals Last Vital Signs Temp 97.7 F 04/01/23 08:00 Pulse 62 04/01/23 08:00 Resp 16 04/01/23 08:38 BP 139/66 04/01/23 08:00 Pulse Ox 93 04/01/23 08:00 O2 Del Method Room Air 04/01/23 08:00 O2 Flow Rate 6 03/30/23 08:05 Discharge Plan Discharge Patient Disposition: Home Health Service Condition: Stable Prescriptions: New lisinopril 10 mg Tablet 10 mg PO DAILY 30 Days Qty: 30 0RF Continued Prilosec OTC 20 mg tablet,delayed release (DR/EC) 20 mg PO BID cetirizine 10 mg tablet 10 mg PO DAILY epinephrine [EpiPen 2-Boo] 0.3 mg/0.3 mL auto-injector 0.3 mg IM ONCE PRN (Reason: Allergic Reaction) diphenhydramine HCl [Benadryl Allergy] 25 mg tablet 25 mg PO . NEEDED docusate sodium [Stool Softener] 100 mg capsule 100 mg PO . NEEDED nitroglycerin 0.4 mg tablet, sublingual 0.4 mg SUBLINGUAL Q5M PRN (Reason: Chest Pain) albuterol sulfate [Ventolin HFA] 90 mcg/actuation HFA aerosol inhaler 1 puff INHALATION ONCE PRN (Reason: Shortness Of Breath) rosuvastatin [Crestor] 40 mg tablet 40 mg PO BEDTIME Jardiance 25 mg tablet 25 mg PO DAILY glimepiride 4 mg tablet 4 mg PO DAILY Spiriva Respimat 2.5 mcg/actuation mist 2 puff inhalation BID Patient Comments: pt no longer taking gabapentin 300 mg capsule 300 mg PO TID MDD 3 Qty: 90 1RF (DME) Diabetic Shoes with 3 sets of insoles See Rx Instructions .Route .MEDSUPPLY Qty: 1 0RF Rx Instructions: As directed by HOME oxycodone 10 mg tablet 10 mg PO TID desvenlafaxine succinate [Pristiq] 100 mg tablet extended release 24 hr 200 mg PO DAILY Qty: 180 0RF Ozempic 0.25 mg or 0.5 mg(2 mg/1.5 mL) pen injector See Rx Instructions .ROUTE .COMPLEX Rx Instructions: 0.5 mg subcutaneously WEEKLY ON WEDNESDAY multivitamin [Multi-Vitamin] Tablet 1 tab PO DAILY tizanidine 4 mg tablet 4 mg PO DAILY PRN (Reason: Pain) metformin 500 mg tablet extended release 24 hr 1,000 mg PO DAILY amoxicillin-pot clavulanate 875-125 mg tablet 1 tab PO BID 10 Days Qty: 14 0RF Changed metoprolol tartrate 50 mg tablet 25 mg PO BID Qty: 30 0RF Discontinued lisinopril-hydrochlorothiazide 20-12.5 mg tablet 2 tab PO DAILY clindamycin HCl 300 mg capsule 300 mg PO TID Discharge Orders: Discharge Order (Routine); Ordered 04/01/23 Ordered By: Gayatri Padilla Referrals: Roe Shoemaker MD [Primary Care Provider] - 04/07/23 10:20 am Discharge Diet: Usual diet Discharge Activity: Resume usual activity Patient Instructions: Opioid Safety Discharge Attestations Time Spent in Discharge Care*: greater than 30 min Quality Metrics Clinical Quality Measures [ No reported AMI, CVA or VTE this stay] Coding Level of Care Code Acute Code for Chg Fwd Diagnoses Abscess of perineum L02.215 Diabetes E11.69 Diabetes mellitus complication status: with other specified complication Diabetes mellitus nursing home insulin use: unspecified terminal system operator insulin use status Diabetes mellitus type: type 2 Obesity E66.9 Body mass index: BMI 37.0-37.9 Obesity classification: adult class 2 (BMI 35 - 39.9) Obesity type: due to excess calories
[2023-04-01] MEDS: HYDROmorphone 1 mg/mL INJ 1 mL 0.4 MG IVP (11:23)
[2023-04-01 12:00] VITALS: BP 144/78; PULSE 74; RESP 16; TEMP 36.6; O2SAT 93
--- NOTE | 2023-04-01 12:04 | P.PN_ITS ---
Subjective Subjective: 52-year-old female who is status post debridement of left gluteal/perineal soft tissue infection. Patient doing well, white count is now normal. Edema and erythema have resolved. Otherwise asymptomatic. Vitals/I&O/Wt Last Vital Signs Temp 97.7 F 04/01/23 08:00 Pulse 62 04/01/23 08:00 Resp 16 04/01/23 08:38 BP 139/66 04/01/23 08:00 Pulse Ox 93 04/01/23 08:00 O2 Del Method Room Air 04/01/23 08:00 O2 Flow Rate 6 03/30/23 08:05 03/31/23 04/01/23 04/01/23 22:59 06:59 14:59 Intake Total 170 / 1450 400 / 1850 240 / 240 Balance 170 / 1450 400 / 1850 240 / 240 Physical Exam : OTHER: On the left perianal region there is a 5 cm wound that is packed. Packing was removed, no evidence of further discharge, wound was repacked with plain packing. Edema and erythema surrounding the wound has resolved. Data 03/31/23 04:37 03/31/23 04:37 Micro: Microbiology 03/30/23 08:07 Gram Stain - Final Buttock Anaerobic Culture - Preliminary Tissue Culture - Preliminary 03/30/23 08:07 Gram Stain - Final Buttock Wound Culture - Preliminary 03/29/23 14:46 Urine Culture - Final Urine,Clean Catch A&P Assessment and plan (1) Abscess of perineum: (2) Diabetes: Qualifiers: Diabetes mellitus complication status: with other specified complication Diabetes mellitus care home insulin use: unspecified care home insulin use status Diabetes mellitus type: type 2 Qualified Code(s): E11.69 - Type 2 diabetes mellitus with other specified complication (3) Obesity: Qualifiers: Body mass index: BMI 37.0-37.9 Obesity classification: adult class 2 (BMI 35 - 39.9) Obesity type: due to excess calories Plan This is a 52-year-old female with history of diabetes and obesity who presented with the left gluteal/perineal abscess, which was drained in the clinic. There was minimal improvement after drainage, patient was not able to take old antibiotics. Therefore we decided to admit the patient for IV antibiotics and debridement in the OR. Debridement was done 2 days ago, since then patient has significantly improved, white count is now normal, examination shows resolution of the erythema and edema on the affected area. Wound packing was replaced today. Patient has set up VNS for daily wound packing. She will follow-up in my clinic in 1 week. Antibiotic therapy has been ordered by hospitalist team. Attestations Medical Necessity Statement*: Patient can be discharged home today from our standpoint with local wound care by VNS Coding Level of Care Code Acute Code for Chg Fwd Diagnoses Abscess of perineum L02.215 Diabetes E11.69 Diabetes mellitus complication status: with other specified complication Diabetes mellitus care home insulin use: unspecified care home insulin use status Diabetes mellitus type: type 2 Obesity E66.9 Body mass index: BMI 37.0-37.9 Obesity classification: adult class 2 (BMI 35 - 39.9) Obesity type: due to excess calories
[2023-04-01 13:42] VITALS: BP 144/78; PULSE 74; RESP 16; TEMP 36.6; O2SAT 93
--- NOTE | 2023-04-01 13:49 | PC.NURSE ---
patient verbalized understanding of discharge instructions, and follow up appointments. While discussing home medications patient stated that she thought the doctor told her she would be on two different antibiotics, and there was only augmentin ordered. Dr. chou notified and stated that she would also send bactrim to [facility] per patient request. patient updated.
== END 2023-04-01 13:52 | disposition home health service (06) | DRG 572 ==
LOC: ER 14:16 → MEDSURG 15:47
PROVIDERS: Surgery; Admitting Provider Student in an Organized Health Care Education/Training Program; Emergency Provider Emergency Medicine; PCP Family Medicine; Visit Provider Student in an Organized Health Care Education/Training Program
DX: L02.215 Cutaneous abscess of perineum (principal); E11.9 Type 2 diabetes mellitus without complications; Z68.37 Body mass index [BMI] 37.0-37.9, adult; B95.5 Unspecified streptococcus as the cause of diseases classified elsewhere; G89.29 Other chronic pain; M25.562 Pain in left knee; M25.561 Pain in right knee; M54.12 Radiculopathy, cervical region; M48.061 Spinal stenosis, lumbar region without neurogenic claudication; F41.1 Generalized anxiety disorder; F33.41 Major depressive disorder, recurrent, in partial remission; E66.01 Morbid (severe) obesity due to excess calories; G25.81 Restless legs syndrome; F17.200 Nicotine dependence, unspecified, uncomplicated; I10 Essential (primary) hypertension; Z79.891 Long term (current) use of opiate analgesic; Z79.84 Long term (current) use of oral hypoglycemic drugs
CPT/HCPCS: 12345; 36415; 36416; 80048; 80053; 80202; 81001; 82962; 83036; 85007; 85025; 87040; 87070; 87075; 87077; 87086; 87176; 87186; 87205; 96365; 96372; 99214; 99285; J0330; J1170; J1650; J1815; J2371; J2405; J2543; J2704; J2710; J3010; J3372; J3490; J7030; J7040

== ENCOUNTER → 2023-04-08 13:35 | Outpatient (BNVA) | payer MEDICARE, MEDICAID, SELFPAY | PROVIDERS: PCP Family Medicine; Visit Provider Surgery | DX: Z09 Encounter for follow-up examination after completed treatment for conditions other than malignant neoplasm (principal) | CPT/HCPCS: 99024 ==

== ENCOUNTER → 2023-04-20 11:20 | Outpatient (BNVA) | payer MEDICARE, MEDICAID, SELFPAY | PROVIDERS: PCP Family Medicine; Visit Provider Surgery | DX: Z09 Encounter for follow-up examination after completed treatment for conditions other than malignant neoplasm (principal); L02.215 Cutaneous abscess of perineum | CPT/HCPCS: 99213; 99214 ==

== ENCOUNTER → 2023-05-04 08:02 | Outpatient (BNVA) | payer MEDICARE, MEDICAID, SELFPAY | PROVIDERS: PCP Family Medicine; Visit Provider Surgery | DX: Z09 Encounter for follow-up examination after completed treatment for conditions other than malignant neoplasm (principal) | CPT/HCPCS: 99212 ==

== ENCOUNTER 2023-05-21 11:43 | Outpatient (CLI) | payer MEDICARE, MEDICAID, SELFPAY ==
--- NOTE | 2023-05-21 11:49 | MM_ITS ---
WS: [id number] BILATERAL 3D TOMOSYNTHESIS DIGITAL SCREENING MAMMOGRAPHY WITH CAD CLINICAL INFORMATION: SCREENING HISTORY: Screening mammogram. No current complaints. COMPARISON: None. TECHNIQUE: Bilateral CC and MLO views. FINDINGS: Scattered fibroglandular densities bilaterally. No suspicious focal mass, asymmetry, calcifications, or architectural distortion. No evidence of malignancy. Incidental punctate and lucent centered calci fications. 10 mm ovoid nodule outer LEFT breast likely intramammary lymph node unchanged since 2020 a nd present dating back to 2013 IMPRESSION: MM/[place] [id number] BI-RADS: 2-Benign FOLLOW UP: 1 Year Follow-up Recommend return to annual screening mammography.
== END 2023-05-21 11:44 | disposition home or self-care (01) ==
PROVIDERS: PCP Family Medicine; Visit Provider Family Medicine
DX: Z12.31 Encounter for screening mammogram for malignant neoplasm of breast (principal)
CPT/HCPCS: 77063; 77067

== ENCOUNTER → 2023-06-29 07:48 | Outpatient (BNVA) | payer MEDICARE, MEDICAID, SELFPAY | PROVIDERS: PCP Family Medicine; Visit Provider Podiatrist Foot & Ankle Surgery | DX: L60.3 Nail dystrophy (principal); M21.621 Bunionette of right foot; M20.41 Other hammer toe(s) (acquired), right foot | CPT/HCPCS: 99214 ==

== ENCOUNTER 2023-07-30 05:44 | Day surgery (SDC) | payer MEDICARE, MEDICAID, SELFPAY ==
[2023-07-30] VITALS (10 sets, daily range): BP systolic 112–156; BP diastolic 67–114; PULSE 64–90; RESP 16–18; TEMP 36–36.6; O2SAT 91–97; BMI 37.0
--- NOTE | 2023-07-30 | XR_ITS ---
WS: [id number] Right foot, C-arm fluoroscopy views, 07/30/2023 Clinical Data: right foot buniectomy, or pic Comparison: Right foot, 11/19/2021 Findings: Dr. Greene performed an osteotomy of the distal right fifth metatarsal with a plate and screw. Impression: Osteotomy of the distal right fifth metatarsal.
--- NOTE | 2023-07-30 06:15 | PM.OPSURHP ---
Providers/Chief Complaint Primary Care Provider: Roe Shoemaker MD Chief Complaint: L60.3, M21.62, M20.41, M79.671 History of Present Illness Teresa Kumar is a 52 year old diabetic female last A1c 7.2, presents with complaints of right foot pain and abnormal ingrown toenails right first and second. States that her right foot pain is associated with a tailor's bunion that has failed conservative treatment consisting of wide accommodative shoes, activity modifications and anti-inflammatories. She had a left tailor's bunionectomy with good results and would like to schedule a right tailor's bunionectomy and right fifth hammertoe correction at today's visit. Also like to have a total matrixectomy of her right great toe and second toenail during that surgery. Patient denies any subjective nausea, vomiting, fever, chills, shortness of breath or chest pain. Review of Systems General: Reports: 10 or more systems reviewed and unremarkable except in HPI and below Const: Denies: fever(s) or chills Eyes: Denies: change in vision Card: Denies: chest pain or palpitations Resp: Denies: dyspnea or productive cough GI: Denies: abdominal pain, nausea or vomiting : Denies: flank pain Musc: Reports: extremity pain, joint pain, joint stiffness, limited range of motion and deformity Skin/Breast: Reports: skin tenderness; Denies: rash Neuro: Reports: difficulty walking; Denies: numbness in extremities, sensory changes or frequent falls Psych: Denies: suicidal ideation Ricci/Lymph: Denies: easy bruising Medications/Allergies Home Medications Medication Instructions Recorded Confirmed Last Taken Type albuterol sulfate 90 mcg/actuation 1 puff inhalation ONCE PRN 08/29/19 07/30/23 07/30/23 History aerosol inhaler (Ventolin HFA) Shortness Of Breath cetirizine 10 mg tablet 10 mg PO DAILY 08/29/19 07/30/23 07/29/23 History diphenhydramine HCl 25 mg tablet 25 mg PO . NEEDED PRN Allergy 08/29/19 07/30/23 12/27/19 History (Benadryl Allergy) Symptoms docusate sodium 100 mg capsule 100 mg PO . NEEDED 08/29/19 07/30/23 07/29/23 History (Stool Softener) epinephrine 0.3 mg/0.3 mL 0.3 mg IM ONCE PRN Allergic 08/29/19 07/30/23 12/27/19 History injection, auto-injector (EpiPen Reaction 2-Boo) nitroglycerin 0.4 mg sublingual 0.4 mg sublingual Q5M PRN Chest 08/29/19 07/30/23 Unknown History tablet Pain omeprazole magnesium 20 mg 20 mg PO BID 08/29/19 07/30/23 07/30/23 History tablet,delayed release (Prilosec OTC) rosuvastatin 40 mg tablet (Crestor) 40 mg PO BEDTIME 08/29/19 07/30/23 07/29/23 History glimepiride 4 mg tablet 4 mg PO DAILY 05/30/20 07/30/23 07/29/23 History empagliflozin 25 mg tablet 25 mg PO DAILY 05/30/21 07/30/23 07/29/23 History (Jardiance) gabapentin 300 mg capsule 300 mg PO TID pain #90 caps 08/27/21 07/30/23 07/30/23 Rx Diabetic Shoes with 3 sets of #1 ea 02/18/22 06/29/23 Unknown Rx insoles oxycodone 10 mg tablet 10 mg PO TID 10/26/22 07/30/23 07/29/23 History multivitamin 1 tab PO DAILY 03/21/23 07/30/23 07/28/23 History tizanidine 4 mg tablet 4 mg PO DAILY PRN Pain 03/21/23 07/30/23 07/26/23 History metformin 500 mg tablet,extended 1,000 mg PO DAILY 03/29/23 07/30/23 07/29/23 History release 24 hr metoprolol tartrate 50 mg tablet 25 mg (1/2 x 50 mg) PO BID #30 tabs 04/01/23 07/30/23 07/30/23 Rx desvenlafaxine succinate 100 mg 200 mg (2 x 100 mg) PO DAILY #180 06/24/23 07/30/23 07/29/23 Rx tablet,extended release 24 hr tabs (Pristiq) lisinopril 10 mg tablet 10 mg PO DAILY 06/24/23 07/30/23 07/29/23 History semaglutide 1 mg/dose (2 mg/1.5 1 mg SUBCUT DIRECTED 06/24/23 07/30/23 07/27/23 History mL) subcutaneous pen injector (Ozempic) Allergies Allergy/AdvReac Type Severity Reaction Status Date / Time insect venom Allergy Severe ALGY-Anaphy Verified 07/30/23 05:59 laxis latex Allergy RASH, HIVES Verified 07/30/23 05:59 propoxyphene Allergy HIVES Verified 07/30/23 05:59 [From Darvocet-N] zonisamide [From Zonegran] AdvReac N/V Verified 07/30/23 05:59 PFSH PFSH: Medical History Arthritis Bilateral chronic knee pain Cervical disc disease Cervical radiculopathy Chronic lumbosacral pain DDD (degenerative disc disease), lumbar Encounter for long-term use of opiate analgesic Generalized anxiety disorder Localized pain of right shoulder joint Long-term use of high-risk medication Lumbar foraminal stenosis Lumbar radiculitis Major depressive disorder, recurrent, in partial remission Morbid obesity Neural foraminal stenosis of cervical spine Opioid contract exists Paresthesia and pain of both upper extremities Psychiatric care Restless legs syndrome Risk for falls Smoker Spondylolisthesis, acquired Surgical History Hx of removal of cyst RIGHT HIP/ DR PINEDA S/P carpal tunnel release S/P cholecystectomy LAPAROSCOPIC 2010 S/P decompression of ulnar nerve DR PAUL 2008? LEFT SIDE S/P partial hysterectomy CANCER S/P shoulder surgery RIGHT Status post craniotomy 2004- SMALL TUMOR REMOVAL / DR PAUL Family History Family/Other Lung disease ASTHMA Other Anemia Clotting disorder Diabetes Heart disease Hypertension Kidney disease Stroke Denies family history of Anesthesia complication Bleeding disorder Social History Smoking and tobacco/nicotine status: never used tobacco/nicotine Alcohol intake: never Substance/Drug Use: never Dietary Habits: Caffeine: Yes Caffeine intake frequency: carbonated beverages and coffee Vital Signs Vitals Signs: Last Vital Signs Temp 96.8 F L 07/30/23 06:04 Pulse 69 07/30/23 06:04 Resp 18 07/30/23 06:04 BP 140/74 07/30/23 06:04 Pulse Ox 96 07/30/23 06:04 O2 Del Method Room Air 07/30/23 06:04 Weight: Weight last 48 hrs Weight 244 lb Physical Exam Narrative: EXAM NARRATIVE: GENERAL: Patient is alert and oriented ?3 and in no acute distress. The following is a focused left lower extremity exam. VASCULAR: Dorsalis pedis and posterior tibial arteries palpable +2. Capillary refill time less than 3 seconds to the distal hallux bilaterally. Calf is supple and nontender proximally and distally. Mild edema at the operative site consistent with postoperative course. NEUROLOGICAL: Protective sensation intact to light touch. DERMATOLOGICAL: Dystrophic right great toenail with nail spicule recurrence and dystrophic right second toenail with pincer nail deformity. MUSCULOSKELETAL: Tailor's bunion to the right foot, hammertoe contracture of the right fifth toe. Pain to palpation right fifth toe and tailor's bunion. Tenderness at dystrophic right great and second toenails. CARDIOVASCULAR: S1, S2, normal rate, normal rhythm. Dorsalis pedis and posterior tibial arteries palpable. LUNGS: Clear to auscltation, no use of acessory muscles, no crackles or wheezes. A&P Assessment and plan (1) Hammertoe of right foot: (2) Tailor's bunionette, right: (3) Onychodystrophy: (4) Right foot pain: Plan Patient has failed conservative treatments for right foot tailor's bunionette that is painful, has exhausted conservative measures consisting of wide accommodative shoe gear, orthotics, stretching, anti-inflammatories and activity modifications. This is affecting her quality of everyday life as she is having pain with standing and walking and carrying out everyday activities. I reviewed at length with the patient, the risks, potential complications, benefits, alternatives, expectations, and typical outcomes associated with the surgery. The risks and potential complications were explained in detail, including but not limited to infection, wound dehiscence or soft tissue complications, bleeding and hematoma, chronic edema, neuritis or nerve damage producing numbness or chronic pain, CRPS, failure to relieve pain or worsening pain, thick / painful / unsightly scar, limited motion / stiffness, malposition, delayed union, malunion, or nonunion, fracture, reaction to implants, anesthetic complications, venous thromboembolism, and deformity recurrence. I discussed the notion of no regrets with the patient as it pertains to complications and outcomes. The patient seemed to understand the nature of the proposed care and required convalescence. They asked appropriate questions, answered to their satisfaction. They are aware no guarantees can be made as to a satisfactory outcome and they understand there may be other possible unforeseen complications or outcomes not listed here that will be treated accordingly if they arise. There were no written or implied guarantees given to the patient. They gave informed consent to proceed. Right tailor's bunionectomy, fifth hammertoe correction and total matrixectomy of great and second toe nail July 30, 2023 Outpatient, MAC versus LMA per anesthesia preference [place], supine, 30 minutes TPS Mini C-arm Jr flores Coding Level of Care Code Acute Code for Chg Fwd Diagnoses Hammertoe of right foot M20.41 Tailor's bunionette, right M21.621 Onychodystrophy L60.3 Right foot pain M79.671
--- NOTE | 2023-07-30 06:16 | W.PM.OPSUD ---
Surgery/Procedure H&P Update DATE OF PROCEDURE: July 30, 2023 DATE H&P PERFORMED: 07/30/23 H&P UPDATE INFORMATION: I have reviewed H&P completed within last 30 days, I have examined patient prior to procedure, No changes to prior documentation and H&P is in [facility] EMR on date indicated PREOP DIAGNOSIS: Right hammertoe and right great and second toenail dystrophy PLANNED PROCEDURE: Operation Date: 07/30/23 07:25 Proposed Procedures p right tailor's bunionectomy [id number], L60.3,M21.621,M20.41, M79.671(Right) - Michele Greene DPM s right fifth hammertoe correction,(Right) - Michele Greene DPM s right great toenail matrixectomy and right second toenail matrixectomy(Right) - Michele Greene DPM
[2023-07-30] MEDS: CELEcoxib 200 mg Capsule 400 MG PO (06:20)
[2023-07-30] MEDS: sodium chloride 0.9% 1,000 ML 30 ML IV (06:21)
[2023-07-30 06:22] LABS: Glucose Point of Care 174 mg/dL (70-110)
--- NOTE | 2023-07-30 08:14 | ANES.PREANE2 ---
Pre-Anesthetic Assessment Height/Weight: Height 1.73 m Weight 110.677 kg Temp Pulse Resp BP Pulse Ox O2 Del Method 96.8 F L 69 18 140/74 96 Room Air 07/30/23 06:04 07/30/23 06:04 07/30/23 06:04 07/30/23 06:04 07/30/23 06:04 07/30/23 06:04 Preop Diagnosis: Right hammertoe and right great and second toenail dystrophy Operation Date: 07/30/23 07:25 Proposed Procedures p right tailor's bunionectomy [id number], L60.3,M21.621,M20.41, M79.671(Right) - Michele Greene DPM s right fifth hammertoe correction,(Right) - Michele Greene DPM s right great toenail matrixectomy and right second toenail matrixectomy(Right) - Michele Greene DPM Familial anesthetic complications: none Was Beta Heidy taken within 24 hours: N/A Was Clonidine taken within 24 hours: N/A Last intake: Intake Last Liquid Date 07/29/23 Last Liquid Time 20:00 Last Solid Date 07/29/23 Last Solid Time 17:30 Social Tobacco and No alcohol Exam alert, oriented x 3 and regular rate & rhythm Airway Submandibular: within normal limits Cervical ROM: within normal limits Mallampati: Class II Dentition: false Pulmonary Chronic Obstructive Pulmonary Disease CV/HEM Hypertension GI Gastroesophageal Reflux Disease Metabolic Morbid Obesity Neuropsych Anxiety, Depression and Neuropathy Anesthetic Plan ASA status: 3 Anesthesia: General Medications/Allergies Home Medications Medication Instructions Recorded Confirmed Last Taken Type albuterol sulfate 90 mcg/actuation 1 puff inhalation ONCE PRN 08/29/19 07/30/23 07/30/23 History aerosol inhaler (Ventolin HFA) Shortness Of Breath cetirizine 10 mg tablet 10 mg PO DAILY 08/29/19 07/30/23 07/29/23 History diphenhydramine HCl 25 mg tablet 25 mg PO . NEEDED PRN Allergy 08/29/19 07/30/23 12/27/19 History (Benadryl Allergy) Symptoms docusate sodium 100 mg capsule 100 mg PO . NEEDED 08/29/19 07/30/23 07/29/23 History (Stool Softener) epinephrine 0.3 mg/0.3 mL 0.3 mg IM ONCE PRN Allergic 08/29/19 07/30/23 12/27/19 History injection, auto-injector (EpiPen Reaction 2-Boo) nitroglycerin 0.4 mg sublingual 0.4 mg sublingual Q5M PRN Chest 08/29/19 07/30/23 Unknown History tablet Pain omeprazole magnesium 20 mg 20 mg PO BID 08/29/19 07/30/23 07/30/23 History tablet,delayed release (Prilosec OTC) rosuvastatin 40 mg tablet (Crestor) 40 mg PO BEDTIME 08/29/19 07/30/23 07/29/23 History glimepiride 4 mg tablet 4 mg PO DAILY 05/30/20 07/30/23 07/29/23 History empagliflozin 25 mg tablet 25 mg PO DAILY 05/30/21 07/30/23 07/29/23 History (Jardiance) gabapentin 300 mg capsule 300 mg PO TID pain #90 caps 08/27/21 07/30/23 07/30/23 Rx Diabetic Shoes with 3 sets of #1 ea 02/18/22 06/29/23 Unknown Rx insoles oxycodone 10 mg tablet 10 mg PO TID 10/26/22 07/30/23 07/29/23 History multivitamin 1 tab PO DAILY 03/21/23 07/30/23 07/28/23 History tizanidine 4 mg tablet 4 mg PO DAILY PRN Pain 03/21/23 07/30/23 07/26/23 History metformin 500 mg tablet,extended 1,000 mg PO DAILY 03/29/23 07/30/23 07/29/23 History release 24 hr metoprolol tartrate 50 mg tablet 25 mg (1/2 x 50 mg) PO BID #30 tabs 04/01/23 07/30/23 07/30/23 Rx desvenlafaxine succinate 100 mg 200 mg (2 x 100 mg) PO DAILY #180 06/24/23 07/30/23 07/29/23 Rx tablet,extended release 24 hr tabs (Pristiq) lisinopril 10 mg tablet 10 mg PO DAILY 06/24/23 07/30/23 07/29/23 History semaglutide 1 mg/dose (2 mg/1.5 1 mg SUBCUT DIRECTED 06/24/23 07/30/23 07/27/23 History mL) subcutaneous pen injector (Ozempic) Allergies Allergy/AdvReac Type Severity Reaction Status Date / Time insect venom Allergy Severe ALGY-Anaphy Verified 07/30/23 05:59 laxis latex Allergy RASH, HIVES Verified 07/30/23 05:59 propoxyphene Allergy HIVES Verified 07/30/23 05:59 [From Darvocet-N] zonisamide [From Zonegran] AdvReac N/V Verified 07/30/23 05:59 Current Medications Generic Name Dose Route Start Last Admin Trade Name Freq PRN Reason Stop Dose Admin Sodium Chloride 1,000 mls @ 30 mls/hr 07/30/23 06:00 07/30/23 06:21 Sodium Chloride 0.9% IV 07/31/23 05:59 30 mls/hr .Q24H NICKO Administration PFSH Anesthesia Medical History Arthritis Bilateral chronic knee pain Cervical disc disease Cervical radiculopathy Chronic lumbosacral pain DDD (degenerative disc disease), lumbar Encounter for long-term use of opiate analgesic Generalized anxiety disorder Localized pain of right shoulder joint Long-term use of high-risk medication Lumbar foraminal stenosis Lumbar radiculitis Major depressive disorder, recurrent, in partial remission Morbid obesity Neural foraminal stenosis of cervical spine Opioid contract exists Paresthesia and pain of both upper extremities Psychiatric care Restless legs syndrome Risk for falls Smoker Spondylolisthesis, acquired Surgical History Hx of removal of cyst RIGHT HIP/ DR PINEDA S/P carpal tunnel release S/P cholecystectomy LAPAROSCOPIC 2010 S/P decompression of ulnar nerve DR PAUL 2008? LEFT SIDE S/P partial hysterectomy CANCER S/P shoulder surgery RIGHT Status post craniotomy 2003- SMALL TUMOR REMOVAL / DR PAUL Family History Family/Other Lung disease ASTHMA Other Anemia Clotting disorder Diabetes Heart disease Hypertension Kidney disease Stroke Denies family history of Anesthesia complication Bleeding disorder Social History Smoking and tobacco/nicotine status: never used tobacco/nicotine Alcohol intake: never Substance/Drug Use: never Data Anesthesia Cardiac Studies: No Data to Display
[2023-07-30] MEDS: ceFAZolin 2,000 MG in sodium chloride 0.9% (plus) 50 ML 100 MG IV (08:26)
[2023-07-30] MEDS: BUPivacaine 0.5% INJ 30 mL XX (08:51)
[2023-07-30] MEDS: BUPivacaine liposome 13.3 mg/mL SDV 10 mL 133 MG INFILTRATI (08:51)
[2023-07-30] MEDS: silver sulfadiazine cream 1% 50 gm 1 APPLIC TOPICAL (08:52)
--- NOTE | 2023-07-30 09:21 | PM.OP ---
Operative Report Date of procedure: July 30, 2023 Pre-op diagnosis: Right tailor's bunion. Onychodystrophy right great and second toe. Post-op diagnosis: Same Procedure done: Right tailor's bunionectomy. CPT code 74155 Right great toe matrixectomy. CPT code 08403 Right second toe matrixectomy. CPT code 34533 Implants: Shiloh ProStep medium, 4 Vicryl, 4-0 nylon Surgeon: Michele Greene DPM Rn Peritoneal Dialysis: Steven Estimated blood loss: 5mL 29 IV fluids: 0 Urine output: 0 Complications: None Brief History: Patient has failed conservative treatments for right foot tailor's bunionette that is painful, has exhausted conservative measures consisting of wide accommodative shoe gear, orthotics, stretching, anti-inflammatories and activity modifications. This is affecting her quality of everyday life as she is having pain with standing and walking and carrying out everyday activities. I reviewed at length with the patient, the risks, potential complications, benefits, alternatives, expectations, and typical outcomes associated with the surgery. The risks and potential complications were explained in detail, including but not limited to infection, wound dehiscence or soft tissue complications, bleeding and hematoma, chronic edema, neuritis or nerve damage producing numbness or chronic pain, CRPS, failure to relieve pain or worsening pain, thick / painful / unsightly scar, limited motion / stiffness, malposition, delayed union, malunion, or nonunion, fracture, reaction to implants, anesthetic complications, venous thromboembolism, and deformity recurrence. I discussed the notion of no regrets with the patient as it pertains to complications and outcomes. The patient seemed to understand the nature of the proposed care and required convalescence. They asked appropriate questions, answered to their satisfaction. They are aware no guarantees can be made as to a satisfactory outcome and they understand there may be other possible unforeseen complications or outcomes not listed here that will be treated accordingly if they arise. There were no written or implied guarantees given to the patient. They gave informed consent to proceed. Procedure: Under mild sedation patient was brought to the operating room and remained on the gurney in supine position. A timeout was performed. Anesthesia was then administered by the anesthesia service. Local anesthesia injected by myself consisting of 20 cc of Marcaine 0.5% and 20 cc of Exparel in a reverse [place] block fashion and Exparel subcutaneously per elevator repairer apprentice recommendation on technique. Well-padded pneumatic tourniquet applied to the right ankle. The right lower extremity was scrubbed, prepped and draped utilizing normal aseptic technique. Right foot was exanguinated with an Esmarch bandage and tourniquet inflated to 250 mmHg. Attention was directed to the dorsal lateral aspect of the right fifth metatarsal phalangeal joint where a curvilinear incision was made with a #15 blade through skin with dissection carried down through subcutaneous tissue to the level of joint capsule and periosteum utilizing a combination of blunt and sharp technique. Care was taken to retract and preserve neurovascular and tendinous structures. All bleeders were ligated and cauterized as necessary. A periosteal and capsular incision was made at the lateral aspect of the right fifth metatarsal phalangeal joint and the head of the fifth metatarsal head laterally was freed from its soft tissue and capsular attachments. Bony prominence was transected utilizing a sagittal saw and this was passed from the operative field. A transverse osteotomy at the metaphyseal was performed from lateral to medial utilizing a sagittal saw followed by translation of the head of the fifth metatarsal medially into a more anatomically corrected position followed by fixation utilizing standard technique and manufacture recommendation of ProStfederico, small and medium broach were performed on intramedullary canal, appropriate fitting and tightness with the medium sized broach was appreciated, a intramedullary titanium implant was then inserted from distal to proximal and temporary fixation of the head of the fifth metatarsal was achieved with K wire followed by fixation with a single locking screw with excellent bony apposition and compression noted. Utilizing AP, oblique and lateral views fixation was noted to be appropriate and not violating the fifth metatarsal phalangeal joint, with centralized within the head of the fifth metatarsal with excellent bony apposition and compression noted at the osteotomy site. Temporary fixation was removed. All bony edges at the osteotomy site were smoothed with a hand rasp. The incision was flushed with copious amounts of sterile skin solution followed by closure with capsule and subcutaneous tissue closed with 4-0 Vicryl care taken to avoid neurovascular bundle. Skin closed with 4-0 nylon. The incision was dressed with Adaptic, sterile 4 x 4, Kerlix, Mckinley wrap followed by application of a cam boot to the left lower extremity. Marcaine 0.5% was injected in a digital block fashion along the right hallux and second toe. Using a spatula the skin around the nail is loosened and the nail was loosened from the nail bed. Once the nail was completely loose using a hemostat the nail was removed in total at the right great toe and second toe. Using a curette the nail matrix was curetted for any remaining nail spicules and to allow for better penetration of the phenol into the matrix at the right hallux and second toe. 3 rounds of phenol were placed on the nail root and bed for 30 seconds each. Alcohol was then used after the phenol on the nail bed at right hallux and second toe. Dressing applied consisting of Silvadene cream, Adaptic, 4 x 4's, Radha, and Coban lightly without compression. Patient to keep this clean dry and intact for 48 hours, patient is to dress daily with silvadene cream and band-aid. Tourniquet was deflated and a prompt hyperemic response was noted to the distal digits of the left foot. Patient tolerated the procedure well and was transferred to the PACU with vital signs stable and vascular status intact. Following a period of postoperative monitoring she will be discharged home may be weightbearing as tolerated below threshold of pain. She is instructed to elevate her left foot while resting. She was prescribed hydrocodone to be taken judiciously as needed for pain. Was provided my cell phone number to contact me with any postoperative questions or concerns. Has scheduled follow-up next week in podiatry clinic for continued postoperative care.
--- NOTE | 2023-07-30 09:33 | W.PM.BPON ---
Date of Procedure: 07/30/23 Surgeon: Michele Greene DPM Toaster Element Repairer(s): Steven Procedure(s) performed: Right tailor's bunionectomy. Right great and second toenail total matrixectomy's. Findings of the procedure(s): None Estimated blood loss: 2 mL Specimen(s) removed: None Post-operative diagnosis: Right tailor's bunion. Onychodystrophy right great toe and second toenail.
--- NOTE | 2023-07-30 14:42 | ANE.PACU2 ---
Inpatient post-anesthesia follow up: Airway intact: Yes Vital signs: Temperature 97.4 F Pulse Rate 64 Respiratory Rate 18 Blood Pressure 128/74 Pulse Oximetry 95 Oxygen Delivery Me thod Room Air Oxygen Flow Rate Fraction of Inspir ed Oxygen Hydration adequate: Yes Nausea and vomiting: No Pain level: 2 Mental status: Baseline
== END 2023-07-30 10:25 | disposition home or self-care (01) ==
PROVIDERS: PCP Family Medicine; Visit Provider Podiatrist Foot & Ankle Surgery
PROC: 0QBP0ZZ Excision of Left Metatarsal, Open Approach (ICD-10-PCS; CPT 28110; principal; 2023-07-30 07:25)
PROC: (CPT 11750; 2023-07-30 07:25)
DX: M21.621 Bunionette of right foot (principal); L60.3 Nail dystrophy; J44.9 Chronic obstructive pulmonary disease, unspecified; I10 Essential (primary) hypertension; K21.9 Gastro-esophageal reflux disease without esophagitis; E66.01 Morbid (severe) obesity due to excess calories; Z68.37 Body mass index [BMI] 37.0-37.9, adult
CPT/HCPCS: 11750 ×2; 28308; 36416; 73620; 76000; 82962; C1713; C9290; J0330; J0690; J1100; J2405; J2704; J2710; J3010; J3490; J7030

== ENCOUNTER → 2023-08-12 13:46 | Outpatient (BNVA) | payer MEDICARE, MEDICAID, SELFPAY | PROVIDERS: PCP Family Medicine; Visit Provider Podiatrist Foot & Ankle Surgery | DX: Z98.890 Other specified postprocedural states (principal) | CPT/HCPCS: 73630; 99024 ==

== ENCOUNTER → 2023-08-26 13:19 | Outpatient (BNVA) | payer MEDICARE, MEDICAID, SELFPAY | PROVIDERS: PCP Family Medicine; Visit Provider Podiatrist Foot & Ankle Surgery | DX: Z98.890 Other specified postprocedural states (principal) | CPT/HCPCS: 73630; 99024 ==

== ENCOUNTER → 2023-09-09 13:07 | Outpatient (BNVA) | payer MEDICARE, MEDICAID, SELFPAY | PROVIDERS: PCP Family Medicine; Visit Provider Podiatrist Foot & Ankle Surgery | DX: Z98.890 Other specified postprocedural states (principal) | CPT/HCPCS: 73630; 99024 ==

== ENCOUNTER → 2023-10-14 13:09 | Outpatient (BNVA) | payer MEDICARE, MEDICAID, SELFPAY | PROVIDERS: PCP Family Medicine; Visit Provider Podiatrist Foot & Ankle Surgery | DX: Z98.890 Other specified postprocedural states (principal) | CPT/HCPCS: 73630; 99024 ==

== ENCOUNTER 2023-11-17 12:34 | Outpatient (CLI) | payer MEDICARE, MEDICAID, SELFPAY ==
--- NOTE | 2023-11-17 12:42 | MR_ITS ---
WS: [id number] MRI LUMBAR SPINE NONCONTRAST HISTORY: Spinal stenosis COMPARISON: 12/04/2013 TECHNIQUE: Sagittal and axial multisequence imaging is submitted. Normal lumbar alignment with no compression fractures or marrow edema. Moderate disc space narrowing and desiccation. Small hemangioma at L3. Conus terminates normally at L1. Reidentified is a small LEFT paracentral disc protrusion at T11-12. No signal abnormality in the cord . L1-L2: Bilateral facet joint arthropathy with no significant stenosis. L2-L3: Mild annular disc bulging with moderate ligamentum flavum and facet arthritis. Encroachment up on the ventral thecal sac and the subarticular recesses. Mild central, bilateral subarticular recess and foraminal stenosis. Disc contacts the traversing L3 nerve roots. Mild progression of stenosis sin ce the prior study. L3-L4: Diffuse annular disc bulging with a RIGHT paracentral disc protrusion. Marked ligamentum flavu m and facet arthritis. Progression of stenosis and facet disease since the prior study. Moderate to s evere central and bilateral subarticular recess and mild foraminal stenosis. Progression of the centr al disc protrusion and central stenosis. There is contact on the traversing L4 nerve roots. L4-L5: Diffuse annular disc bulging with severe ligamentum flavum and facet arthritis. Fluid in the f acet joints. Large disc protrusion extends into the LEFT foramen. Progression of stenosis and degener ative changes. Severe central, bilateral subarticular recess and LEFT foraminal stenosis. Marked encr oachment upon the traversing L5 nerve roots and the LEFT exiting L4 nerve root. Mild RIGHT foraminal stenosis. L5-S1: Mild annular disc bulging with marked facet joint arthritis. There is disc and osteophyte cont act on the S1 nerve roots, LEFT greater than RIGHT. Significant encroachment upon the LEFT S1 nerve r oot. Severe bilateral facet joint arthritis, LEFT greater than RIGHT. No significant central stenosis . Mild foraminal stenosis. Liver is enlarged extending over a length of 23 cm. IMPRESSION: 1. Progression of degenerative disease throughout the lumbar spine with progression of stenosis sinc e 2013. 2. L4-5: Severe central, bilateral subarticular recess and LEFT foraminal stenosis. There is a large LEFT foraminal disc protrusion with significant encroachment upon the LEFT traversing L5 nerve root and the exiting L4 nerve root. Bilateral significant subarticular recess encroachment also at L4-5. 3. L2-3: Mild central, bilateral subarticular recess and foraminal stenosis with disc contacting the traversing L3 nerve roots. 4. L3-4: Moderate to severe central with bilateral subarticular recess and mild foraminal stenosis. Contact on the traversing L4 nerve roots. 5. L5-S1: Severe bilateral facet joint arthritis. Significant disc and osteophyte contact on the S1 nerve roots, LEFT greater than RIGHT. 6. Hepatomegaly.
== END 2023-11-17 12:35 | disposition home or self-care (01) ==
LOC: RAD 12:34
PROVIDERS: PCP Family Medicine; Visit Provider General Practice
DX: M48.062 Spinal stenosis, lumbar region with neurogenic claudication (principal); M25.78 Osteophyte, vertebrae; M47.897 Other spondylosis, lumbosacral region
CPT/HCPCS: 72148

== ENCOUNTER 2023-11-30 09:20 | Outpatient (CLI) | payer MEDICARE, MEDICAID, SELFPAY ==
--- NOTE | 2023-11-30 09:25 | CT_ITS ---
WS: [id number] CT ANGIOGRAPHY OF THE ABDOMINAL AORTA WITH RUNOFF TO THE ANKLES HISTORY: PVD TECHNIQUE: Arterial injection is performed during imaging to evaluate the aorta and runoff vessels to the ankles. MIP and volume rendering imaging has also been performed. All images are reviewed. All C T scans at [facility] use at least one of these dose optimization techniques: automated exposu re control; mA and/or kV adjustment per patient size (includes targeted exams where dose is matched t o clinical indication); or iterative reconstruction. Contrast: Omnipaque 350; 100 mL IV. DLP: 1829.04 mGy.cm COMPARISON: None available. Abdominal aorta: Excellent opacification abdominal aorta. Mild atherosclerotic plaque increasing towa rds the bifurcation. Mild stenosis involving the distal abdominal aorta with a maximum diameter of 7. 7 mm. Celiac axis and SMA, renal arteries and HUAN are all patent. RIGHT lower extremity: Moderate plaque throughout the RIGHT common and internal iliac arteries. Exter nal iliac artery is is patent without significant stenosis. Femoral artery bifurcation is intact. Sma ll caliber deep profunda and SFA. Increasing plaque and narrowing of the lumen through Sanchez's canal . Popliteal artery is patent. Tibioperoneal trunk normal. Very small caliber three-vessel runoff to t he ankle. Intermittent visualization of the peroneal artery. The anterior and posterior tibial arteri es are predominantly intact. LEFT lower extremity: High-grade stenosis origin of the LEFT common iliac artery with complete occlus ion just distal to the origin. Very dense calcified plaque. Reconstitution of flow in the distal comm on iliac artery. There is continued coarse heavy plaque and intimal thickening. Heavy calcification i nternal iliac artery. The external iliac artery is better preserved. Atherosclerotic plaque continues into the femoral artery, deep profunda and SFA. Small caliber distal SFA through Sanchez's canal. Sma ll caliber popliteal artery. Tibioperoneal trunk is intact. Small caliber three-vessel runoff to the lower extremity. Anterior and posterior tibial arteries are opacified to the ankle. The peroneal fred ry is very small caliber and not visualized throughout its course to the ankle. Lipomas are noted bilaterally between the internal and external lobelike muscles of the abdominal wal l. Prior cholecystectomy. No ascites or adenopathy. No colon obstruction. IMPRESSION: 1. 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 2. Bilateral limited runoff below the knees via the peroneal arteries to the ankles. Anterior and po sterior tibial arteries are better opacified. 3. Moderate stenosis distal abdominal aorta just proximal to the bifurcation. Maximum transverse fernando meter 7.7 mm. 4. Moderate plaque in the RIGHT common and internal iliac arteries. 5. Small caliber bilateral femoral arteries but they are patent.
--- NOTE | 2023-11-30 09:25 | USCV_ITS ---
Teresa Kumar Age: 53 Gender: F : 1970 Exam Date: 11/30/2023 09:27 Ordering Phys: Roe Shoemaker MD Technologist: Exam Location: [facility] – [place]_ Indication: smoked since 1981 less than 1 pack daily now previous 3 packs daily coldness in legs diabetes patient says left leg hurts worse but pain never goes away RIGHT LEFT Brachial 131.00 mmHg Brachial 160.00 mmHg Pressure (mmHg) Waveform Pressure (mmHg) Waveform 163.00 INHALATION THERAPY TEACHER 85.00 165.00 DPA 80.00 1.03 Ankle/Brachial Index 0.53 142.00 Pre-Exercise Toe Pressure 61.00 Pre-Exercise Toe/Brachial Index 0.38 0.89 FINDINGS Resting PHAM of 1.03 on the right side and 0.53 on the left side CONCLUSIONS Abnormal resting PHAM and TBI on the left side, suggesting moderate peripheral arterial disease Normal resting PHAM and TBI on the right side ,suggesting no significant arterial obstruction Dr Tico Cash MD [facility] (Electronically Signed) Final Date: 03 December 2023 10:28 S
[2023-11-30] MEDS: iohexol 350 mg/mL 500 mL Btl (per mL) IV (11:08)
== END 2023-11-30 09:21 | disposition home or self-care (01) ==
LOC: RAD 09:22
PROVIDERS: PCP Family Medicine; Visit Provider Family Medicine
DX: I73.9 Peripheral vascular disease, unspecified (principal); I74.5 Embolism and thrombosis of iliac artery; I77.811 Abdominal aortic ectasia
CPT/HCPCS: 75635; 93922; Q9967

== ENCOUNTER → 2024-01-07 09:19 | Outpatient (BNVA) | payer MEDICARE, MEDICAID, SELFPAY | PROVIDERS: PCP Family Medicine; Visit Provider Internal Medicine | DX: R07.9 Chest pain, unspecified (principal); I73.9 Peripheral vascular disease, unspecified; E11.69 Type 2 diabetes mellitus with other specified complication; R94.31 Abnormal electrocardiogram [ECG] [EKG] | CPT/HCPCS: 93005; 99204 ==

== ENCOUNTER 2024-01-19 07:30 | Outpatient (CLI) | payer MEDICARE, MEDICAID, SELFPAY ==
[2024-01-19 07:30] VITALS: BP 90/60; PULSE 55; RESP 16; TEMP 36.7; O2SAT 96; BMI 36.1
[2024-01-19] MEDS: aspirin 325 mg Tablet PO (07:55)
[2024-01-19] MEDS: diphenhydrAMINE 50 mg Capsule PO (07:55)
[2024-01-19 08:15] LABS: Anion Gap 15.1 (5-19); Blood Urea Nitrogen 19 mg/dL (6-20); Calcium 9.8 mg/dL (8.5-10.5); Carbon Dioxide 27 mmol/L (22-29); Chloride 102 mmol/L (98-107); Glomerular Filtration Rate 87.5 mL/min (90-130); Glucose 197 mg/dL (65-115); Osmolality Calculated 298 mOsm/kg (285-295); Potassium 4.1 mmol/L (3.5-5.1); Sodium 140 mmol/L (136-145)
--- NOTE | 2024-01-19 08:38 | W.PM.OPSUD ---
Surgery/Procedure H&P Update DATE OF PROCEDURE: January 19, 2024 DATE H&P PERFORMED: 01/07/24 H&P UPDATE INFORMATION: I have reviewed H&P completed within last 30 days, I have examined patient prior to procedure and No changes to prior documentation PREOP DIAGNOSIS: Severe lifestyle limiting claudication PRIMARY INDICATION FOR PROCEDURE: Severe lifestyle limiting claudication PLANNED PROCEDURE: Operation Date: 01/19/24 08:30 Proposed Procedures p Peripheral Diagnostic 25687, I73.9(Not Applicable) - Marcell Patel M.D Possible percutaneous intervention PATIENT REASSESSED PRIOR TO SEDATION, WITH NO CHANGE NOTED: Yes PHYSICAL EXAM: alert, oriented x 3, clear to auscultation bilaterally and regular rate & rhythm AIRWAY EVAL/ANESTHESIA PLAN: normal airway, ASA III, Local Anesthesia, Risks, benefits & alternatives of sedation and/or procedure discussed and Patient agrees to continue as planned ADDITIONAL INFORMATION: Moderate sedation
[2024-01-19 08:40] LABS: Basophils # 0.1 10^3/uL (0.0-0.1); Basophils % 0.9 %; Eosinophils # 0.3 10^3/uL (0.0-0.8); Eosinophils % 2.6 %; Hematocrit 52.7 % (36-47); Lymphocytes # 1.9 10^3/uL (0.8-4.8); Mean Corpuscular HGB Conc 33.8 g/dL (30-55); Mean Corpuscular Volume 100.8 fl (85-98); Mean Platelet Volume 11.2 fL (7.4-10.4); Monocytes # 0.6 10^3/uL (0.2-0.9); Monocytes % 5.6 %; Neutrophils # 7.15 10^3/uL (1.8-7.7); Neutrophils % 70.9 %; Nucleated Red Blood Cells % 0 %; Platelet Count 556 10^3/cmm (157-399); Red Blood Count 5.23 10^6/uL (3.85-5.65); Red Cell Distribution Width 14.3 % (12.1-15.1); White Blood Count 10.08 10^3/uL (3.29-11.43)
--- NOTE | 2024-01-19 10:56 | PC.NURSE ---
Patient arrived to [facility] from [facility] via bed. Patient is awake and oriented but still a little drowsy. Pt vital signs are stable, pulses are 2+ bilateral lower extremities. Both femoral sheaths are intact and connected to a pressure bag. Nurse will get a ptt in 2 hours and remove sheaths per protocol. Patient is aware of activity restrictions and importance of compliance. This nurse will continue to monitor q15m.
[2024-01-19 12:42] VITALS: BP 131/79; PULSE 60; RESP 17; O2SAT 95
--- NOTE | 2024-01-19 12:48 | XACV_ITS ---
Wt: 108 kg BSA: 2.32 m2 Any Known Allergies: Other Gender: Female : 1970 Exam Type: Invasive Peripheral Vascular Procedure(s): Procedure Description: Peripheral Cath Diagnostic Procedure Procedure Description: Abdominal aortic angiography Procedure Description: Lower extremities' angiography Procedure Description: Peripheral vascular Intervention Procedure Description: PV Balloon Procedure Description: PV Stent Exam Priority: Routine Abdominal Diagnostic Findings Distal abdominal aorta: Patent. Lower Extremity Diagnostic Findings INDICATION: Severe lifestyle limiting claudication of left lower extremity. Left lower extremity findings: Left common iliac artery is totally occluded. Collaterals supply flow distally. Left external iliac artery is patent. Left internal iliac artery is patent. Left common femoral artery is patent. Left profunda artery is patent. Left SFA is patent. Left popliteal artery is patent. Below the knee patient has three-vessel runoff with patent posterior tibial, anterior tibial and peroneal arteries. . Lower Extremity Interventional Findings Procedure detail: After diagnostic imaging, we obtained access in left common femoral artery. Using a seeker support catheter and Glidewire to cross totally occluded segment of the left common iliac artery. We predilated the occluded segment with 7.0 x 40 mm [place] balloon. We then placed a 8.0 x 39 mm Omnilink stent. At this time final angiogram was performed that showed excellent stent expansion and no residual stenosis. Glidewire was removed. Patient left the Banking And Finance Instructor in stable condition.. 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 Recommendations Dual antiplatelet therapy with aspirin and plavix. High intensity statin therapy. Outpatient cardiology follow up in 2 weeks. Hemodynamic Data Phase:Rest AO : 196.0 / 74.0 ( 120.0 ) @ 10:05:00 AM 193.0 / 84.0 ( 112.0 ) @ 10:15:00 AM 132.0 / 74.0 ( 100.0 ) @ 10:19:00 AM / ( 0.0 ) @ 10:21:00 AM Access Site Site: Right Femoral artery Sheath Size: 6 Fr Hemost... Method: Suture Hemost... Success: Successful Site: Left Femoral artery Sheath Size: 6 Fr Hemost... Method: Suture Hemost... Success: Successful Procedure Details Findings Procedure Consent Obtained. Pre-Procedure Time Out. Identified patient by full name and date of as verbalized by the patient/guarantor. Does the consent match the physician's order: Yes. Accurate & Complete Informed Consent: Yes. Inpatient/Outpatient History & Physical on Chart: Yes. If H&P is completed, is and addenduem needed: No; If yes, is the addendum complete: N/A. Visualize and Verify Site with Patient/Guarantor: N/A. Relevant Radiology Images available: N/A. The risks, benefits, and alternatives of sedation and/or procedure were discussed by physician. The patient agrees to continue. Procedure started. Pre OP diagnosis: Lifestyle limiting claudication. Correct patient, site and procedure confirmed by cath team. PERRLA. Strong, equal hand fibre technologist bilaterally. Lungs clear x 5 lobes. IV Site on Arrival: 20 gauge in the right anticubital. IV Fluids: 0.9% NaCl at KVO. 0 mL infused prior to slab miller operator. Pre Procedural Pulses: bilateral posterior tibial was Doppled. Pre Procedural Pulses: bilateral dorsalis pedis was Doppled. Pre Procedural Pulses: bilateral radial was 3+. Oxygen started at 3liters/min via nasal canula. bilateral groins was prepped with chloroprep then draped in the usual sterile fashion. Physician notified. Baseline sample Acquired. HR: 57 BPM. Patient's family unavailable. Physician arrived. Physician scrubbed in. Immediate Pre-Procedure Time Out. Correct Patient: Yes; Correct Procedure: Yes; Correct Site: Yes; Correct Patient Position: Yes; Correct Supplies: Yes; Dried Flammable Prep: Yes; Blood Products Available: N/A;. Lidocaine 1% infiltrated to the right groin. Arterial access obtained with micropuncture set. A 5FrFr UF catheter in over wire. Pigtail postioned above the bifurcation of the iliacs. Aortagram performed @ 10 mL/sec for a total of 30 mL. Left common iliac selected and arteriogram performed. Left common iliac selected and arteriogram with runoff performed @ 10 mL/sec for a total of 20 mL using digital subtraction. Sheath and uf left in place. Set to KVO. Lidocaine 1% infiltrated to the left groin. Arterial access obtained with micropuncture set. Hand Injection through the left femoral access. Glidewire inserted though the left femoral sheath. Custer advaced to the lesion in the left common iliac. Left common iliac selected and arteriogram with runoff performed @ 10 mL/sec for a total of 10 mL using digital subtaction. Picture taken through the uf and right femoral access. back to KVO. Seeker catheter inserted over the glidewire as crossing support. Seeker/glidewire advanced past left common iliac lesion. Custer removed. Hand injection performed. Custer reinserted through the seeker. Seeker removed. Digital subtraction at 10 ml/sec for a total of 10 ml through the uf and right femoral access. Inflation number : 1 A AB ARMADA 35 OTW [id number] was prepped and advanced across the Ostial Common Iliac, Left , then inflated to 6 PANKAJ for 1:29 seconds. Inflation number: 2 The AB ARMADA 35 OTW [id number] was reinflated across the Ostial Common Iliac, Left, to 6 PANKAJ for 1:32 seconds. Digital subtraction at 10 ml/sec for a total of 20 ml through the uf and right femoral access. Balloon out over the wire. Inflation Number : 3 A AB OMNILINK STENT [id number] -Lot Number# [id number] was prepped and advanced across the Ostial Common Iliac, Left. The stent was deployed at 11 PANKAJ for 1:28 seconds. EXP 11-20-26. Stent deliver system out over wire. Digital subtraction at 10 ml/sec for a total of 20 ml through the uf and right femoral access. ACT drawn. Results 0ut of range high seconds. Therapeutic limits - pre-heparin administration 90-150 seconds and monitoring heparin during a vascular procedure >250 seconds. Left common iliac selected and arteriogram with runoff performed @ 10 mL/sec for a total of 30 mL. UF removed over the wire. Left common femoral selected and arteriogram with runoff performed @ 10 mL/sec for a total of 30 mL. Left common femoral selected and arteriogram of the left lower extremity performed using digital subtraction @ 10 mL/sec for a total of 30 mL. Physician review of films. Physician scrubbed out. Post OP diagnosis: Total occlusion of the left common iliac; s/p stenting. A Suture was successful obtaining hemostatsis at the Right Femoral artery insertion site. A Suture was successful obtaining hemostatsis at the Left Femoral artery insertion site. Sheath(s) sutured into position with 2-0 silk and sterile 4x4's and Op-site applied over the site. No oozing or signs and symptoms of hematoma noted. Arterial sheath flushed and connected to tranducer and pressure bag with heparinized saline. Post Procedure: Pulses reassessed and unchanged. PERRLA. Strong, equal hand fibre technologist bilaterally. No VTE prophylaxis required. MEDICATION WASTE Lidocaine-12 ml Heparin- 3000 units. Total IV fluids: 100 mL. Fluoro: 11:06. Contrast type used: Visipaque 320 mgI/mL, 500 mL bottle. [id number]. Complications: None. Estimated blood loss: 5mL-10mL. Responsiveness - Normal response to verbal stimuli; alert and oriented, PERRLA. Airway - Unaffected, no intervention required; spontaneous ventilation. Circulation: W/N/L, pulses unchanged. Nausea/Vomiting: No. Procedure completed. Patient transferred by bed to 1st floor. Vital chart was stopped. ACT drawn. Results 312 seconds. Therapeutic limits - pre-heparin administration 90-150 seconds and monitoring heparin during a vascular procedure >250 seconds. Procedure Medications Start: 8:44 AM Stop: 8:44 AM Medication: Versed 1 mg and Fentanyl 25 mcg Amount: 1 Route: I.V. Start: 8:52 AM Stop: 8:52 AM Medication: Versed Amount: 1 mg Route: I.V. Start: 9:06 AM Stop: 9:06 AM Medication: Fentanyl Amount: 25 mcg Route: I.V. Start: 9:09 AM Stop: 9:09 AM Medication: Heparin Amount: 3000 units Route: I.V. Start: 9:09 AM Stop: 9:09 AM Medication: Fentanyl Amount: 25 mcg Route: I.V. Start: 9:15 AM Stop: 9:15 AM Medication: Versed Amount: 1 mg Route: I.V. Start: 9:30 AM Stop: 9:30 AM Medication: Heparin Amount: 5000 units Route: I.V. Start: 9:45 AM Stop: 9:45 AM Medication: Fentanyl Amount: 25 mcg Route: I.V. Start: 9:46 AM Stop: 9:46 AM Medication: Heparin Amount: 1000 units Route: I.V. Start: 9:55 AM Stop: 9:55 AM Medication: Versed Amount: 1 mg Route: I.V. I, the attending physician, have reviewed and verified all procedure medications. Yes, all medications given per verbal order History/Risk Factors Hypertension: Yes Dyslipidemia: Yes Peripheral Arterial Disease (PAD): Yes Obesity: Yes Renal Disease: No Tobacco Use: Current/Recent(w/in 1 year) Prior Interventions PCI: No CABG: No Valve Surgery: No Report Signatures Finalized by Marcell Patel MD on 01/24/2024 11:35 AM
[2024-01-19] MEDS: sodium chloride 0.9% 1,000 ML 100 ML IV ×2 (12:52→21:24)
--- NOTE | 2024-01-19 15:16 | CTR_ITS ---
PROCEDURE INFORMATION: Exam: CT Abdomen And Pelvis Without Contrast Exam date and time: 01/19/2024 3:30 PM Age: 53 years old Clinical indication: Other: Low back; Prior surgery; Surgery date: Post-operative (0-2 days); Surgery type: Peripheral angiogram done today; Patient HX: Patient had sheaths removed and her hematoma grew in size and PT started complaining of low nataliia pain; Additional info: Rule out retroperitoneal bleed TECHNIQUE: Imaging protocol: Computed tomography of the abdomen and pelvis without contrast. Radiation optimization: All CT scans at this facility use at least one of these dose optimization techniques: automated exposure control; mA and/or kV adjustment per patient size (includes targeted exams where dose is matched to clinical indication); or iterative reconstruction. COMPARISON: CT pelvis w con* [id number] 03/23/2023 7:28 PM RADIATION DOSE METRICS: Total DLP (mGy-cm): 1250 FINDINGS: Liver: No acute findings Gallbladder and bile ducts: No acute findings. Pancreas: No ductal dilation. Spleen: No splenomegaly. Adrenal glands: No mass. Kidneys and ureters: No stones or hydronephrosis. Stomach and bowel: No obstruction. Appendix: No evidence of appendicitis. Intraperitoneal space: Mild stranding of the left retroperitoneum adjacent to the psoas muscle example series 2, image 177. No defined intra-abdominal collection/hematoma. This extends to the left groin where there is area of hemorrhage measuring about 4 x 9 cm such as on axial image 255, extending below the field of view. Vasculature: No abdominal aortic aneurysm. Lymph nodes: No enlarged lymph nodes. Urinary bladder: Incompletely distended. Reproductive: No acute findings. Bones/joints: No acute findings. Soft tissues: Multiple abdominal wall lipomas.. CT/CT abdomen pelvis wo con [id number] IMPRESSION: Left groin hematoma. No significant intra-abdominal/retroperitoneal collection.
--- NOTE | 2024-01-19 16:00 | PC.NURSE ---
Bilateral sheaths removed per protocol. Right groin sheath removed, no issues or hematoma formation. Dressing was applied and no drainage noted. Patients left side however, developed a large hematoma. Pressure was held x1hour and physician was notified. Nurse received orders to obtain a STAT CT abd/pelvis to rule out retroperitoneal bleed. Once patient was back from CT the hematoma continued to grow. This nurse notified Security System Sales Consultant, and Nurse ecommerce marketing manager. Physician held pressure and wanted a femstop to be placed until 1715 and follow up q10m.
--- NOTE | 2024-01-19 16:23 | PC.NURSE ---
called to bedside by primary nurse with concerns of continued formation of hematoma Dr. Patel contacted and at bedside shortly after instructions to hold pressure received pressure held by this nurse and provider until femstop was obtained instruction to keep femstop in place for 1 hour and reassess orders received to place glover for bed rest to be removed when bed rest is complete
[2024-01-19 17:11] VITALS: BMI 36.1
[2024-01-19] MEDS: acetaminophen 325 mg Tablet 650 MG PO (18:35)
[2024-01-19] MEDS: metoprolol tartrate 25 mg Tablet PO (18:52)
[2024-01-19] MEDS: pantoprazole DR 40 mg Tablet PO (18:52)
[2024-01-19] MEDS: atorvastatin 40 mg Tablet 80 MG PO (21:23)
[2024-01-19] MEDS: gabapentin 300 mg Capsule PO (21:24)
[2024-01-19 22:00] VITALS: PULSE 66
[2024-01-19 22:15] VITALS: BP 113/67; PULSE 64; RESP 18; TEMP 37.2; O2SAT 92
[2024-01-20 00:11] VITALS: BP 113/67; PULSE 68; RESP 18; O2SAT 92
[2024-01-20 00:23] VITALS: BP 124/71; TEMP 36.9
--- NOTE | 2024-01-20 01:13 | PC.NURSE ---
00:30 patient sat up on side of bed. By 00:50 patient stating that L groin site was hurting. Nurse checked site and noted a hematoma forming were previous hematoma was. Patient was placed supine in bed and hematoma was broken down manually.
[2024-01-20 04:21] VITALS: BP 106/62; PULSE 63; RESP 19; O2SAT 92
[2024-01-20 05:58] VITALS: PULSE 67
[2024-01-20 06:43] LABS: Basophils # 0.1 10^3/uL (0.0-0.1); Basophils % 0.7 %; Eosinophils # 0.2 10^3/uL (0.0-0.8); Eosinophils % 1.7 %; Hematocrit 43.4 % (36-47); Lymphocytes # 1.5 10^3/uL (0.8-4.8); Lymphocytes % 13.8 %; Mean Corpuscular HGB Conc 33.6 g/dL (30-55); Mean Corpuscular Hemoglobin 33.7 pg (27-33); Mean Corpuscular Volume 100.2 fl (85-98); Mean Platelet Volume 10.9 fL (7.4-10.4); Monocytes # 0.7 10^3/uL (0.2-0.9); Monocytes % 6.4 %; Neutrophils % 76.5 %; Nucleated Red Blood Cells % 0 %; Platelet Count 432 10^3/cmm (157-399); Red Blood Count 4.33 10^6/uL (3.85-5.65); Red Cell Distribution Width 14.6 % (12.1-15.1); White Blood Count 10.58 10^3/uL (3.29-11.43)
[2024-01-20 06:57] LABS: Anion Gap 10.8 (5-19); Blood Urea Nitrogen 16 mg/dL (6-20); Calcium 8.7 mg/dL (8.5-10.5); Carbon Dioxide 25 mmol/L (22-29); Chloride 103 mmol/L (98-107); Creatinine Clr Calc Pharmacy 139.5498; Glomerular Filtration Rate 104.6 mL/min (90-130); Glucose 185 mg/dL (65-115); Osmolality Calculated 286 mOsm/kg (285-295); Potassium 3.8 mmol/L (3.5-5.1); Sodium 135 mmol/L (136-145)
[2024-01-20 07:35] VITALS: BP 130/71; PULSE 75; RESP 26; TEMP 37; O2SAT 95
[2024-01-20] MEDS: clopidogrel 75 mg Tablet PO (09:38)
[2024-01-20] MEDS: pantoprazole DR 40 mg Tablet PO (09:39)
[2024-01-20] MEDS: gabapentin 300 mg Capsule PO (09:39)
[2024-01-20] MEDS: aspirin 81 mg EC Tablet PO (09:39)
[2024-01-20] MEDS: metoprolol tartrate 25 mg Tablet PO (09:39)
[2024-01-20] MEDS: lisinopril 10 mg Tablet PO (09:39)
--- NOTE | 2024-01-20 10:15 | USCV_ITS ---
José Teresa Age: 53 Gender: F : 1970 Exam Date: 01/20/2024 10:28 Ordering Phys: Marcell Patel M.D ([email or web address]) Technologist: Exam [place] [facility] [place]: ? 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
--- NOTE | 2024-01-20 11:44 | P.DS_ITS ---
Discharge Providers Date of Admission: January 19, 2024 Date of Discharge: January 20, 2024 Attending Provider at Admission: Marcell Patel MD Attending Provider at Discharge: Marcell Patel M.D Primary Care Provider: Roe Shoemaker MD Reason for Visit Reason for Visit: I73.9 Brief History: 53-year-old woman with severe lifestyle limiting claudication of left lower extremity is here for peripheral angiogram with possible intervention. 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 Underwent successful revascularization with 1 stent. Patient was observed overnight and stayed stable. Was discharged home on dual antiplatelet therapy in a stable condition Physical Exam Narrative: GENERAL: Patient is alert, awake and oriented x3. [] NECK: No jugular vein distension. [] HEENT: No cyanosis. No icterus. No pallor. [] HEART: Regular S1 and S2. No murmur, rub or gallop. [] LUNGS: Clear to auscultate bilaterally. [] CENTRAL NERVOUS SYSTEM: Grossly nonfocal. [] EXTREMITIES: Lower extremities with 1+ edema bilaterally. Urinary Catheter Management: Ho: Cath Placed During This Visit: yes Reason for Continuing Indwelling Catheter: Other Urinary Catheter Date of Insertion: 01/19/24 Urinary Catheter Time of Insertion: 16:21 Discharge Data Studies Completed and Pending Completed Studies During Hospitalization Category Date Time Status CT abdomen pelvis con [id number] Stat Cat Scan 01/19/24 15:16 Completed Pending at discharge Category Date Time Status INSTRUMENT AND CONTROL SERVICE PERSON request for service Routine Exams 01/19/24 12:48 Taken US arterial duplex groin RT [CV arterial dup groin RT Ultrasound 01/20/24 10:15 Taken [id number]] Routine Radiology Impressions Abdomen/Pelvis CT 01/19/24 15:16 IMPRESSION: Left groin hematoma. No significant intra-abdominal/retroperitoneal collection. Laboratory Results WBC 10.58 10^3/uL (3.29-11.43) 01/20/24 06:19 RBC 4.33 10^6/uL (3.85-5.65) 01/20/24 06:19 Hgb 14.60 g/dL (11.27-16.99) 01/20/24 06:19 Hct 43.4 % (36-47) 01/20/24 06:19 MCV 100.2 fl (85-98) H 01/20/24 06:19 MCH 33.7 pg (27-33) H 01/20/24 06:19 MCHC 33.6 g/dL (30-55) 01/20/24 06:19 RDW 14.6 % (12.1-15.1) 01/20/24 06:19 Plt Count 432 10^3/cmm (157-399) H 01/20/24 06:19 MPV 10.9 fL (7.4-10.4) H 01/20/24 06:19 Neut % (Auto) 76.5 % 01/20/24 06:19 Lymph % (Auto) 13.8 % 01/20/24 06:19 [place] % (Auto) 6.4 % 01/20/24 06:19 Eos % (Auto) 1.7 % 01/20/24 06:19 Baso % (Auto) 0.7 % 01/20/24 06:19 Neut # (Auto) 8.10 10^3/uL (1.8-7.7) H 01/20/24 06:19 Lymph # (Auto) 1.5 10^3/uL (0.8-4.8) 01/20/24 06:19 [place] # (Auto) 0.7 10^3/uL (0.2-0.9) 01/20/24 06:19 Eos # (Auto) 0.2 10^3/uL (0.0-0.8) 01/20/24 06:19 Baso # (Auto) 0.1 10^3/uL (0.0-0.1) 01/20/24 06:19 Nucleated RBC % (auto) 0 % 01/20/24 06:19 Nucleated RBCs # 0.0 /100WBC 01/20/24 06:19 APTT 30.0 SECONDS (23.9-36.7) 01/19/24 13:06 Sodium 135 mmol/L (136-145) L 01/20/24 06:19 Potassium 3.8 mmol/L (3.5-5.1) 01/20/24 06:19 Chloride 103 mmol/L (98-107) 01/20/24 06:19 Carbon Dioxide 25 mmol/L (22-29) 01/20/24 06:19 Anion Gap 10.8 (5-19) 01/20/24 06:19 BUN 16 mg/dL (6-20) 01/20/24 06:19 Creatinine 0.6 mg/dL (0.5-0.9) 01/20/24 06:19 GFR Calculation 104.6 mL/min (90-130) 01/20/24 06:19 Glucose 185 mg/dL (65-115) H 01/20/24 06:19 Calculated Osmolality 286 mOsm/kg (285-295) 01/20/24 06:19 Calcium 8.7 mg/dL (8.5-10.5) 01/20/24 06:19 Blood Type A Positive 01/19/24 18:30 Rho(D) Type Rh positive 01/19/24 18:30 Antibody Screen Negative 01/19/24 18:30 Vitals Last Vital Signs Temp 98.6 F 01/20/24 07:35 Pulse 75 01/20/24 07:35 Resp 26 H 01/20/24 07:35 BP 130/71 01/20/24 07:35 Pulse Ox 95 01/20/24 07:35 O2 Del Method Room Air 01/20/24 07:35 Discharge Plan Discharge Patient Disposition: Home Prescriptions: New aspirin 81 mg capsule 81 mg PO DAILY Qty: 90 3RF Continued Prilosec OTC 20 mg tablet,delayed release (DR/EC) 20 mg PO BID cetirizine 10 mg tablet 10 mg PO DAILY epinephrine [EpiPen 2-Boo] 0.3 mg/0.3 mL auto-injector 0.3 mg IM ONCE PRN (Reason: Allergic Reaction) diphenhydramine HCl [Benadryl Allergy] 25 mg tablet 25 mg PO . NEEDED PRN (Reason: Allergy Symptoms) docusate sodium [Stool Softener] 100 mg capsule 100 mg PO . NEEDED nitroglycerin 0.4 mg tablet, sublingual 0.4 mg SUBLINGUAL Q5M PRN (Reason: Chest Pain) albuterol sulfate [Ventolin HFA] 90 mcg/actuation HFA aerosol inhaler 1 puff INHALATION ONCE PRN (Reason: Shortness Of Breath) rosuvastatin [Crestor] 40 mg tablet 40 mg PO BEDTIME Jardiance 25 mg tablet 25 mg PO DAILY glimepiride 4 mg tablet 4 mg PO DAILY gabapentin 300 mg capsule 300 mg PO TID MDD 3 Qty: 90 1RF (DME) Diabetic Shoes with 3 sets of insoles See Rx Instructions .Route .MEDSUPPLY Qty: 1 0RF Rx Instructions: As directed by HOME lisinopril 10 mg tablet 10 mg PO DAILY Ozempic 1 mg/dose (2 mg/1.5 mL) pen injector 1 mg SUBCUT DIRECTED Rx Instructions: qtuesday oxycodone 10 mg tablet 10 mg PO TID PRN (Reason: Pain) Spiriva Respimat 2.5 mcg/actuation mist 2 puff inhalation DAILY clopidogrel [Plavix] 75 mg tablet 75 mg PO DAILY desvenlafaxine succinate [Pristiq] 100 mg tablet extended release 24 hr 200 mg PO DAILY Qty: 180 0RF tizanidine 4 mg tablet 4 mg PO DAILY PRN (Reason: Pain) metoprolol tartrate 50 mg tablet 25 mg PO BID Qty: 30 0RF Held metformin 500 mg tablet extended release 24 hr 1,000 mg PO DAILY Hold Instructions: Resume on 01/22/24. Discharge Orders: Discharge Order (Routine); Ordered 01/20/24 Ordered By: Marcell Patel Referrals: Alicia Allen FNP [Nurse Practitioner] - 02/16/24 3:30 pm Roe Shoemaker MD [Primary Care Provider] - 01/31/24 11:30 am Diet: Diabetic Activity: Increase activity as tolerated Patient Instructions: Aspirin (By mouth) (Lisa Extra Strength, Lisa Aspirin [facility],..., Peripheral Vascular Stent Placement (DC), Post Angiogram Home Care Instructions Discharge Date/Time: 01/20/24 12:24 Discharge Attestations Time Spent in Discharge Care*: less than 30 min Quality Metrics Clinical Quality Measures [ No reported AMI, CVA or VTE this stay] Coding Level of Care Code Acute Code for Chg Fwd
[2024-01-20 12:08] VITALS: BP 130/71; PULSE 75; RESP 26; TEMP 37; O2SAT 95
--- NOTE | 2024-01-20 12:23 | PC.NURSE ---
discharge instructions given and explained.pt verb understanding of instructions.discharged via w/c to exit at this time
== END 2024-01-20 12:24 | disposition home or self-care (01) ==
LOC: CCL 07:31 → CSU 11:35
PROVIDERS: PCP Family Medicine; Visit Provider Internal Medicine
DX: I74.5 Embolism and thrombosis of iliac artery (principal); I10 Essential (primary) hypertension; E78.5 Hyperlipidemia, unspecified; E66.9 Obesity, unspecified; Z68.36 Body mass index [BMI] 36.0-36.9, adult; E11.9 Type 2 diabetes mellitus without complications; J44.9 Chronic obstructive pulmonary disease, unspecified; F17.210 Nicotine dependence, cigarettes, uncomplicated
CPT/HCPCS: 36415; 37221; 51702; 74176; 75625; 75710; 80048; 85025; 85347; 85730; 86850; 86900; 93926; 96365; 96374; 96375; 99152; 99153; C1725; C1769; C1876; C1887; C1894; J1644; J2250; J3010; J7030; Q0163; Q9967

== ENCOUNTER → 2024-02-16 15:17 | Outpatient (BNVA) | payer MEDICARE, MEDICAID, SELFPAY | PROVIDERS: PCP Family Medicine; Visit Provider Nurse Practitioner Family | DX: I77.9 Disorder of arteries and arterioles, unspecified (principal); Z72.0 Tobacco use | CPT/HCPCS: 36415; 80048; 99214 ==

== ENCOUNTER 2024-02-25 08:04 | Outpatient (CLI) | payer MEDICARE, MEDICAID, SELFPAY ==
--- NOTE | 2024-02-25 08:08 | CT_ITS ---
WS: [id number] LDCT LUNG CANCER SCREENING TECHNIQUE: Noncontrast CT of the chest with coronal and sagittal reformatted images. CLINICAL INFORMATION: NICOTINE DEPENDENCE CIGARETTES, UNCOMPLICATED COMPARISON: 2022 DLP: 114.30 mGy.cm DIvol: Mean CTDIvol: 2.80 (mGy) All CT scans at [facility] use at least one of these dose optimization techniques: automat ed exposure control; mA and/or kV adjustment per patient size (includes targeted exams where dose is matched to clinical indication); or iterative reconstruction. FINDINGS: Several subcentimeter pulmonary nodules stable compared to previous. Largest again seen in the RIGHT lower lobe measuring 6 mm. No new suspicious pulmonary parenchymal opacities. Aortic calcification. No mediastinal or hilar lymphadenopathy. No axillary lymphadenopathy. Cholecyst ectomy. Adrenal glands are normal. Hypertrophic changes thoracic spine. CT/CT lung screening [id number] IMPRESSION: LUNG-RADS: 2-Benign Appearance or Behavior FOLLOW UP: 12 Month: Continue annual screening with LDCT
== END 2024-02-25 08:05 | disposition home or self-care (01) ==
LOC: RAD 08:05
PROVIDERS: PCP Family Medicine; Visit Provider Family Medicine
DX: Z12.2 Encounter for screening for malignant neoplasm of respiratory organs (principal); F17.210 Nicotine dependence, cigarettes, uncomplicated; R91.8 Other nonspecific abnormal finding of lung field; Z90.49 Acquired absence of other specified parts of digestive tract
CPT/HCPCS: 71271

== ENCOUNTER → 2024-04-10 10:44 | Outpatient (BNVA) | payer MEDICARE, MEDICAID, SELFPAY | PROVIDERS: PCP Family Medicine; Visit Provider Nurse Practitioner Family | DX: L81.0 Postinflammatory hyperpigmentation (principal); L30.8 Other specified dermatitis | CPT/HCPCS: 99213 ==

== ENCOUNTER → 2024-05-11 12:35 | Outpatient (BNVA) | payer MEDICARE, MEDICAID, SELFPAY | PROVIDERS: PCP Family Medicine; Visit Provider Internal Medicine | DX: I73.9 Peripheral vascular disease, unspecified (principal); E11.69 Type 2 diabetes mellitus with other specified complication; F17.210 Nicotine dependence, cigarettes, uncomplicated | CPT/HCPCS: 99214 ==

== ENCOUNTER → 2024-08-03 13:49 | Outpatient (BNVA) | payer MEDICARE, MEDICAID, SELFPAY | PROVIDERS: PCP Family Medicine; Visit Provider Orthopaedic Surgery | DX: M54.16 Radiculopathy, lumbar region (principal); M48.062 Spinal stenosis, lumbar region with neurogenic claudication; G89.29 Other chronic pain; Z01.818 Encounter for other preprocedural examination; Z79.899 Other long term (current) drug therapy | CPT/HCPCS: 36415; 72110; 81001; 83036; 85025; 99204 ==

== ENCOUNTER 2024-08-30 07:44 | Day surgery (SDC) | payer MEDICARE, MEDICAID, SELFPAY ==
[2024-08-30] VITALS (11 sets, daily range): BP systolic 91–140; BP diastolic 52–84; PULSE 53–78; RESP 14–18; TEMP 36.1; O2SAT 95–98; BMI 36.9
--- NOTE | 2024-08-30 09:03 | P.ANESASSM_ITS ---
Pre-Anesthetic Assessment Height/Weight: Height 1.73 m Weight 110.223 kg Temp Pulse Resp BP Pulse Ox O2 Del Method 97.0 F L 67 18 140/84 97 Room Air 08/30/24 08:13 08/30/24 08:13 08/30/24 08:13 08/30/24 08:13 08/30/24 08:13 08/30/24 08:13 Preop Diagnosis: Lumbar stenosis with neurogenic claudication Operation Date: 08/30/24 09:45 Proposed Procedures p Lumbar Spine Decompression Lumbar Decompression(Not Applicable) - Luis Manuel Delarosa, DO Familial anesthetic complications: none Was Beta Heidy taken within 24 hours: Yes Was Clonidine taken within 24 hours: N/A Social No alcohol and No tobacco Exam alert, oriented x 3, clear to auscultation bilaterally and regular rate & rhythm Airway Submandibular: within normal limits Cervical ROM: within normal limits Mallampati: Class I Dentition: false Pulmonary Chronic Obstructive Pulmonary Disease CV/HEM Hypertension Metabolic Diabetes Mellitus and Morbid Obesity Musc/skel Lower Back Pain and Osteoarthritis/DJD Neuropsych Anxiety, Depression and Neuropathy chronic pain/opioid Anesthetic Plan ASA status: 3 Anesthesia: General Medications/Allergies Home Medications Medication Instructions Recorded Confirmed Last Taken Type albuterol sulfate 90 mcg/actuation 1 puff inhalation ONCE PRN 08/29/19 08/30/24 07/30/23 History aerosol inhaler (Ventolin HFA) Shortness Of Breath cetirizine 10 mg tablet 10 mg PO DAILY 08/29/19 08/24/24 08/24/24 History diphenhydramine HCl 25 mg tablet 25 mg PO . NEEDED PRN Allergy 08/29/19 08/30/24 12/27/19 History (Benadryl Allergy) Symptoms docusate sodium 100 mg capsule 100 mg PO . NEEDED 08/29/19 08/30/24 01/19/24 06:00 History (Stool Softener) epinephrine 0.3 mg/0.3 mL 0.3 mg IM ONCE PRN Allergic 08/29/19 08/30/24 12/27/19 History injection, auto-injector (EpiPen Reaction 2-Boo) nitroglycerin 0.4 mg sublingual 0.4 mg sublingual Q5M PRN Chest 08/29/19 08/30/24 Unknown History tablet Pain omeprazole magnesium 20 mg 20 mg PO BID 08/29/19 08/24/24 08/30/24 History tablet,delayed release (Prilosec OTC) rosuvastatin 40 mg tablet (Crestor) 40 mg PO BEDTIME 08/29/19 08/24/24 08/29/24 History empagliflozin 25 mg tablet 25 mg PO DAILY 05/30/21 08/24/24 08/28/24 History (Jardiance) gabapentin 300 mg capsule 300 mg PO TID pain #90 caps 08/27/21 08/24/24 08/29/24 Rx Diabetic Shoes with 3 sets of #1 ea 02/18/22 08/03/24 Unknown Rx insoles tizanidine 4 mg tablet 4 mg PO DAILY PRN Pain 03/21/23 08/30/24 07/26/23 History metformin 500 mg tablet,extended 1,000 mg PO DAILY 03/29/23 08/24/24 08/29/24 History release 24 hr metoprolol tartrate 50 mg tablet 25 mg (1/2 x 50 mg) PO BID #30 tabs 04/01/23 08/24/24 08/30/24 Rx semaglutide 1 mg/dose (2 mg/1.5 1 mg SUBCUT DIRECTED 06/24/23 08/24/24 08/18/24 History mL) subcutaneous pen injector (Ozempic) clopidogrel 75 mg tablet (Plavix) 75 mg PO DAILY 11/25/23 08/24/24 08/22/24 History oxycodone 10 mg tablet 10 mg PO TID PRN Pain 01/07/24 08/24/24 08/29/24 History aspirin 81 mg capsule 81 mg PO DAILY #90 caps 01/20/24 08/24/24 08/28/24 Rx desvenlafaxine succinate 100 mg 200 mg (2 x 100 mg) PO DAILY #180 05/01/24 08/24/24 08/29/24 Rx tablet,extended release 24 hr tabs (Pristiq) lisinopril 2.5 mg tablet 2.5 mg PO DAILY 05/11/24 08/24/24 08/29/24 History Allergies Allergy/AdvReac Type Severity Reaction Status Date / Time insect venom Allergy Severe ALGY-Anaphy Verified 05/11/24 12:47 laxis latex Allergy RASH, HIVES Verified 05/11/24 12:47 propoxyphene Allergy HIVES Verified 05/11/24 12:47 [From Darvocet-N] zonisamide [From Zonegran] AdvReac N/V Verified 05/11/24 12:47 [facility] Anesthesia Medical History Peripheral arterial occlusive disease Psychiatric care Encounter for long-term use of opiate analgesic Major depressive disorder, recurrent, in partial remission Generalized anxiety disorder Localized pain of right shoulder joint Opioid contract exists Smoker Cervical disc disease Arthritis Cervical radiculopathy Neural foraminal stenosis of cervical spine Paresthesia and pain of both upper extremities Chronic lumbosacral pain Lumbar foraminal stenosis Spondylolisthesis, acquired Morbid obesity Long-term use of high-risk medication Lumbar radiculitis DDD (degenerative disc disease), lumbar Restless legs syndrome Bilateral chronic knee pain Risk for falls Surgical History S/P foot surgery S/P carpal tunnel release S/P cholecystectomy LAPAROSCOPIC 2010 S/P partial hysterectomy CANCER S/P shoulder surgery RIGHT S/P decompression of ulnar nerve DR PAUL 2008? LEFT SIDE Status post craniotomy 2004- SMALL TUMOR REMOVAL / DR PALU Hx of removal of cyst RIGHT HIP/ DR PINEDA Family History Family/Other Lung disease ASTHMA Other Anemia Clotting disorder Diabetes Heart disease Hypertension Kidney disease Stroke Denies family history of Anesthesia complication Bleeding disorder Social History Smoking and tobacco/nicotine status: current every day tobacco/nicotine user cigarettes Packs smoked per day: 1 Years cigarettes smoked: 36 [ Other cigarette details: Started at age 15] Alcohol intake: never Substance/Drug Use: never Data Anesthesia Cardiac Studies: No Data to Display
[2024-08-30 09:04] LABS: Glucose Point of Care 300 mg/dL (70-110)
[2024-08-30] MEDS: insulin regular-human 100 units/1 mL 10 UNIT IVP (09:13)
[2024-08-30] MEDS: methadone 10 mg Tablet PO (09:17)
[2024-08-30 09:41] LABS: Glucose Point of Care 222 mg/dL (70-110)
[2024-08-30] MEDS: sodium chloride 0.9% 1,000 ML 30 ML IV (09:45)
--- NOTE | 2024-08-30 10:07 | W.PM.OPSUD ---
Surgery/Procedure H&P Update DATE OF PROCEDURE: August 30, 2024 DATE H&P PERFORMED: 08/03/24 H&P UPDATE INFORMATION: I have reviewed H&P completed within last 30 days, I have examined patient prior to procedure and No changes to prior documentation PREOP DIAGNOSIS: Lumbar stenosis with neurogenic claudication PLANNED PROCEDURE: Operation Date: 08/30/24 09:45 Proposed Procedures p Lumbar Spine Decompression Lumbar Decompression(Not Applicable) - Luis Manuel Delarosa DO
[2024-08-30] MEDS: ceFAZolin 2,000 mg SDV 2000 MG IVP (10:48)
[2024-08-30] MEDS: lidocaine-epi 1% 20 mL INJ 10 ML INJECTION (11:37)
--- NOTE | 2024-08-30 12:29 | PM.OP ---
Operative Report Date of procedure: August 30, 2024 Pre-op diagnosis: Lumbar stenosis with neurogenic claudication Post-op diagnosis: same Procedure done: 1. L3-4 laminectomy with partial facetectomy 2. L4-5 laminectomy with partial facetectomy Surgeon: Luis Manuel Delarosa DO Estimated blood loss (mL): 25 Procedure: 1. L3-4 laminectomy with partial facetectomy 2. L4-5 laminectomy with partial facetectomy Patient is brought to the operative suite. After undergoing anesthesia they are placed in the prone position. All areas of impingement are well padded. Patient is then prepped and draped in the normal sterile fashion. A skin incision is made over the L3/4 level. This is confirmed under c-arm guidance. A series of dilators are passed and the tubular retractor is docked on the L3 lamina. A bovie is used to clear the soft tissue off the lamina and the L 3/4 facet joint. A high speed yusef is then used to perform the laminectomy and take down the medial aspect of the L 3/4 facet joint. A kerrison rongeure was then used to take down the remaining lamina and smooth the edge of the laminectomy up to the point where the ligamentum flavum attaches. Attention was then brought to the medial aspect of the facet joint. The remaining medial aspect of the superior and inferior aspect of the facet joint were taken down with the kerrison from the pedicle of L3 to L 4. The facet joint had significant hypertrophy. Attention was then brought to the Ligamentum Flavum. The ligament was taken down from the lamina of L3 to L4 and out medially to the remaining facet joint. The ligament was thick. The dura was then exposed. The dura was in good repair. The L3 nerve was then traced with a curette out the L3/4 foramen and found to be adequately decompressed. The L4 nerve was traced with a curette around the L4 pedicle. The lateral recess was opened with a kerrison helping to further decompress the L4 nerve. Wound is then irrigated copiously with saline and surgiflo is used to stop any bleeding. The tubular retractor is removed A skin incision is made over the L4/5 level. This is confirmed under c-arm guidance. A series of dilators are passed and the tubular retractor is docked on the L4 lamina. A bovie is used to clear the soft tissue off the lamina and the L 4/5 facet joint. A high speed yusef is then used to perform the laminectomy and take down the medial aspect of the L4/5 facet joint. A kerrison rongeure was then used to take down the remaining lamina and smooth the edge of the laminectomy up to the point where the ligamentum flavum attaches. Attention was then brought to the medial aspect of the facet joint. The remaining medial aspect of the superior and inferior aspect of the facet joint were taken down with the kerrison from the pedicle of L4 to L 5. The facet joint had significant hypertrophy. Attention was then brought to the Ligamentum Flavum. The ligament was taken down from the lamina of L4 to L5 and out medially to the remaining facet joint. The ligament was thick. The dura was then exposed. The dura was in good repair. The L4 nerve was then traced with a curette out the L4/5 foramen and found to be adequately decompressed. The L5 nerve was traced with a curette around the L5 pedicle. The lateral recess was opened with a kerrison helping to further decompress the L5 nerve. Wound is then irrigated copiously with saline and surgiflo is used to stop any bleeding. The tubular retractor is removed and the wound is closed with vicryl and monocryl suture. Glue is then used to protect the wound. A sterile dressing is then placed. Patient was then placed in the supine position and transferred to the PACU in stable condition.
--- NOTE | 2024-08-30 13:28 | ANE.PACU2 ---
Inpatient post-anesthesia follow up: Airway intact: Yes Vital signs: Temperature 97.0 F Pulse Rate 61 Respiratory Rate 17 Blood Pressure 108/63 Pulse Oximetry 95 Oxygen Delivery Me thod Room Air Oxygen Flow Rate 6 Fraction of Inspir ed Oxygen Hydration adequate: Yes Nausea and vomiting: No Pain level: 3 Mental status: Baseline
[2024-08-30] MEDS: ondansetron 2 mg/ML SDV 2 mL 4 MG IVP (13:35)
[2024-08-30] MEDS: albuterol 2.5 mg/3 mL Neb INHALATION (13:37)
== END 2024-08-30 14:15 | disposition home or self-care (01) ==
PROVIDERS: PCP Family Medicine; Visit Provider Orthopaedic Surgery
PROC: (CPT 63005; principal; 2024-08-30 09:35)
DX: M48.062 Spinal stenosis, lumbar region with neurogenic claudication (principal); J44.9 Chronic obstructive pulmonary disease, unspecified; I10 Essential (primary) hypertension; E66.01 Morbid (severe) obesity due to excess calories; Z68.36 Body mass index [BMI] 36.0-36.9, adult; M19.90 Unspecified osteoarthritis, unspecified site; E11.40 Type 2 diabetes mellitus with diabetic neuropathy, unspecified; G89.29 Other chronic pain; Z79.891 Long term (current) use of opiate analgesic; Z79.82 Long term (current) use of aspirin; F17.210 Nicotine dependence, cigarettes, uncomplicated
CPT/HCPCS: 63047; 63048; 36416; 76000; 82962; 94640; J0690; J1171; J1815; J2250; J2405; J2704; J2710; J3010; J3490; J7030; J7613

== ENCOUNTER → 2024-09-19 13:22 | Outpatient (BNVA) | payer MEDICARE, MEDICAID, SELFPAY | PROVIDERS: PCP Family Medicine; Visit Provider Orthopaedic Surgery | DX: Z98.890 Other specified postprocedural states (principal) | CPT/HCPCS: 99024 ==

== ENCOUNTER → 2024-10-17 12:58 | Outpatient (BNVA) | payer MEDICARE, MEDICAID, SELFPAY | PROVIDERS: PCP Family Medicine; Visit Provider Orthopaedic Surgery | DX: Z98.890 Other specified postprocedural states (principal) | CPT/HCPCS: 99024 ==

== ENCOUNTER 2024-11-16 11:03 | Outpatient (CLI) | payer MEDICARE, MEDICAID, SELFPAY ==
--- NOTE | 2024-11-16 11:08 | MM_ITS ---
WS: [id number] BILATERAL SCREENING DIGITAL TOMOSYNTHESIS MAMMOGRAM WITH CAD HISTORY: SCREENING COMPARISON: 05/21/2023, 04/20/2022 Bilateral CC and MLO views with tomosynthesis and synthetic mammography submitted. Computer aided detection analyzed. Breast composition: There are scattered areas of fibroglandular density. No suspicious masses, microcalcifications or architectural distortion. Numerous bilateral benign calcifications and lymph nodes within each breast. No new mass or suspicious grouping of calcification. MM/MM scr tomosynthesis [id number] IMPRESSION: BI-RADS: 2 - Benign. FOLLOW UP: 1 Year Follow-up
== END 2024-11-16 11:04 | disposition home or self-care (01) ==
LOC: RAD 11:04
PROVIDERS: PCP Family Medicine; Visit Provider Family Medicine
DX: Z12.31 Encounter for screening mammogram for malignant neoplasm of breast (principal); R92.323 Mammographic fibroglandular density, bilateral breasts; R92.1 Mammographic calcification found on diagnostic imaging of breast; R59.0 Localized enlarged lymph nodes
CPT/HCPCS: 77063; 77067; 99024

== ENCOUNTER → 2025-01-08 10:09 | Outpatient (BNVA) | payer MEDICARE, MEDICAID, SELFPAY | PROVIDERS: PCP Family Medicine; Visit Provider Podiatrist Foot & Ankle Surgery | DX: M25.872 Other specified joint disorders, left ankle and foot (principal) | CPT/HCPCS: 99214 ==

== ENCOUNTER → 2025-02-12 08:04 | Outpatient (BNVA) | payer MEDICARE, MEDICAID, SELFPAY | PROVIDERS: PCP Family Medicine; Visit Provider Podiatrist Foot & Ankle Surgery | DX: M79.672 Pain in left foot (principal); M25.872 Other specified joint disorders, left ankle and foot | CPT/HCPCS: 99214 ==

== ENCOUNTER → 2025-02-13 13:00 | Outpatient (BNVA) | payer MEDICARE, MEDICAID, SELFPAY | PROVIDERS: PCP Family Medicine; Visit Provider Orthopaedic Surgery | DX: M48.062 Spinal stenosis, lumbar region with neurogenic claudication (principal); Z98.890 Other specified postprocedural states | CPT/HCPCS: 99213 ==

== ENCOUNTER 2025-02-19 10:00 | Outpatient (CLI) | payer MEDICARE, MEDICAID, SELFPAY ==
--- NOTE | 2025-02-19 10:15 | MR_ITS ---
WS: [id number] MRI LUMBAR SPINE NONCONTRAST TECHNIQUE: Sagittal T1, T2 and STIR imaging. Axial T1 and T2 imaging. CLINICAL INFORMATION: lumbar pain COMPARISON: MRI 11/17/2023 FINDINGS: Mild lumbar curve. No acute compression. Disc bulging worse at L3-L4 and L4-L5. Small central protrusion T11-T12 with slight effacement of the ventral thecal sac. This is similar to previous. L1-L2: Mild disc bulging with mild central canal stenosis. Narrowing of the RIGHT subarticular recess. This appears slightly progressed. Mild facet arthropathy. L2-L3: Mild disc bulging with mild central canal stenosis and narrowing of the subarticular recess bilaterally. This appears slightly progressed. RIGHT foraminal protrusion with mild RIGHT foraminal narrowing. This also appears progressed. L3-L4: RIGHT subarticular protrusion impinges the RIGHT subarticular recess and traversing RIGHT L4 nerve root. Severe central canal stenosis. Annular tear at this level. Disc protrusion appears progressed. Mild RIGHT greater than LEFT foraminal narrowing. Advanced facet arthropathy. L4-L5: Severe central canal stenosis with a LEFT paracentral and subarticular protrusion. This appears progressed with severe impingement on the LEFT greater than RIGHT subarticular recess. LEFT foraminal protrusion impinges the exiting LEFT L4 nerve root with severe LEFT foraminal narrowing also progressed. Mild RIGHT foraminal narrowing. L5-S1: Disc osteophyte complex impinges the LEFT S1 nerve root unchanged. Severe facet arthropathy. Foramen are patent. Hepatomegaly MR/MR lumbar spine wo con* [id number] IMPRESSION: 1. Severe central canal stenosis L3-L4 and L4-5. Persistent stenosis at these levels despite interval hemilaminectomies. 2. Central disc protrusion at L3-4 eccentric to the RIGHT with impingement on the RIGHT subarticular recess and traversing RIGHT L4 nerve root. Annular tear at this level. This appears progressed. 3. Shallow central protrusion L4-5 similar to previous. 4. LEFT foraminal protrusion L4-5 with severe LEFT foraminal narrowing and imp ingement on the exiting LEFT L4 nerve root. This appears progressed. 5. Mild central canal canal stenosis L2-3 appears slightly progressed with imp ingement of the subarticular recess. Progressed RIGHT foraminal protrusion at t his level impinges the exiting RIGHT L2 nerve root 6. Mild disc bulging L5-S1 with slight indentation on the LEFT S1 nerve root i s unchanged. Advanced facet arthropathy at this level.
== END 2025-02-19 10:01 | disposition home or self-care (01) ==
LOC: RAD 10:01
PROVIDERS: PCP Family Medicine; Visit Provider Orthopaedic Surgery
DX: M48.062 Spinal stenosis, lumbar region with neurogenic claudication (principal); M51.26 Other intervertebral disc displacement, lumbar region; M47.896 Other spondylosis, lumbar region
CPT/HCPCS: 72148

== ENCOUNTER → 2025-02-26 09:01 | Outpatient (BNVA) | payer MEDICARE, MEDICAID, SELFPAY | PROVIDERS: PCP Family Medicine; Visit Provider Orthopaedic Surgery | DX: M48.061 Spinal stenosis, lumbar region without neurogenic claudication (principal); M54.16 Radiculopathy, lumbar region; Z98.890 Other specified postprocedural states | CPT/HCPCS: 99214 ==

== ENCOUNTER 2025-02-28 10:21 | Outpatient (CLI) | payer MEDICARE, MEDICAID, SELFPAY ==
[2025-02-28 10:51] LABS: Hematocrit 50.1 % (36-47); Hemoglobin 17.30 g/dL (11.27-16.99); Mean Corpuscular HGB Conc 34.5 g/dL (30-55); Mean Corpuscular Hemoglobin 33.9 pg (27-33); Mean Corpuscular Volume 98.2 fl (85-98); Nucleated Red Blood Cells % 0 %; Platelet Count 398 10^3/cmm (157-399); Red Blood Count 5.10 10^6/uL (3.85-5.65); White Blood Count 9.80 10^3/uL (3.29-11.43)
[2025-02-28 10:54] LABS: Glucose Urine UA 3+ (Normal); Nitrate Urine Negative (Negative)
[2025-02-28 10:59] LABS: Add Urine Microscopic? YES
[2025-02-28 11:07] LABS: Specific Gravity, Urine 1.044 (1.005-1.030)
[2025-02-28 11:11] LABS: Alanine Aminotransferase 21 U/L (0-33); Albumin Level 4.2 g/dL (3.5-5.2); Alkaline Phosphatase 101 U/L (35-105); Anion Gap 18.7 (5-19); Aspartate Amino Transferase 14 U/L (0-32); Blood Urea Nitrogen 20 mg/dL (6-20); Calcium 9.0 mg/dL (8.5-10.5); Carbon Dioxide 24 mmol/L (22-29); Chloride 101 mmol/L (98-107); Globulin 2.5 g/dL (1.3-4.6); Glucose 207 mg/dL (65-115); Osmolality Calculated 297 mOsm/kg (285-295); Potassium 4.7 mmol/L (3.5-5.1); Sodium 139 mmol/L (136-145); Total Protein 6.7 g/dL (6.6-8.7)
== END 2025-02-28 10:22 | disposition home or self-care (01) ==
PROVIDERS: PCP Family Medicine; Visit Provider Orthopaedic Surgery
DX: Z98.890 Other specified postprocedural states (principal)
CPT/HCPCS: 36415; 80053; 81001; 85025

== ENCOUNTER → 2025-03-05 11:11 | Outpatient (BNVA) | payer MEDICARE, MEDICAID, SELFPAY | PROVIDERS: PCP Family Medicine; Visit Provider Family Medicine | DX: Z01.818 Encounter for other preprocedural examination (principal) | CPT/HCPCS: 93005 ==

== ENCOUNTER 2025-03-07 06:02 | Day surgery (SDC) | payer MEDICARE, MEDICAID, SELFPAY ==
[2025-03-07] VITALS (13 sets, daily range): BP systolic 88–170; BP diastolic 50–86; PULSE 59–84; RESP 12–20; TEMP 36.1–36.6; O2SAT 92–99
--- NOTE | 2025-03-07 05:53 | ANES.PREANE2 ---
Pre-Anesthetic Assessment Height/Weight: Height 5 ft 8 in Preop Diagnosis: Back pain Operation Date: 03/07/25 07:30 Proposed Procedures p Lumbar Spine Decompression(Not Applicable) - Luis Manuel Delarosa, DO Was Beta Heidy taken within 24 hours: Yes Was Clonidine taken within 24 hours: N/A Social Tobacco and No alcohol Exam alert, oriented x 3 and regular rate & rhythm Airway Submandibular: within normal limits Cervical ROM: within normal limits Mallampati: Class II Comments: Comments: Edentulous Anesthetic Plan ASA status: 3 Anesthesia: General Other: No prior issues with anesthesia NPO since yesterday evening History of GERD, controlled with omeprazole Type 2 diabetes on semaglutide. Last taken 02/24/2025 History of hypertension on lisinopril and metoprolol Current smoker, COPD. No home O2 Labs reviewed from 02/28/2025 and acceptable for procedure today Plan for GETA Medications/Allergies Home Medications ?Medication ?Instructions ?Recorded ?Confirmed ?Last Taken ?Type albuterol sulfate 90 mcg/actuation 1 puff inhalation ONCE PRN 08/29/19 03/07/25 03/07/25 History aerosol inhaler (Ventolin HFA) Shortness Of Breath cetirizine 10 mg tablet 10 mg PO DAILY 08/29/19 03/07/25 03/07/25 History diphenhydramine HCl 25 mg tablet 25 mg PO . NEEDED PRN Allergy 08/29/19 03/07/25 12/27/19 History (Benadryl Allergy) Symptoms docusate sodium 100 mg capsule 100 mg PO . NEEDED 08/29/19 03/07/25 01/19/24 06:00 History (Stool Softener) epinephrine 0.3 mg/0.3 mL 0.3 mg IM ONCE PRN Allergic 08/29/19 03/07/25 12/27/19 History injection, auto-injector (EpiPen Reaction 2-Boo) nitroglycerin 0.4 mg sublingual 0.4 mg sublingual Q5M PRN Chest 08/29/19 03/07/25 Unknown History tablet Pain omeprazole magnesium 20 mg 20 mg PO BID 08/29/19 03/07/25 03/06/25 History tablet,delayed release (Prilosec OTC) rosuvastatin 40 mg tablet (Crestor) 40 mg PO BEDTIME 0103/07/25 03/06/25 History empagliflozin 25 mg tablet 25 mg PO DAILY 05/30/21 03/07/25 03/05/25 History (Jardiance) gabapentin 300 mg capsule 300 mg PO TID pain #90 caps 08/27/21 03/07/25 03/07/25 Rx Diabetic Shoes with 3 sets of #1 ea 02/18/22 03/07/25 Unknown Rx insoles tizanidine 4 mg tablet 4 mg PO DAILY PRN Pain 03/21/23 03/07/25 03/06/25 History metformin 500 mg tablet,extended 1,000 mg PO DAILY 03/29/23 03/07/25 03/05/25 History release 24 hr metoprolol tartrate 50 mg tablet 25 mg (1/2 x 50 mg) PO BID #30 tabs 04/01/23 03/07/25 03/07/25 Rx semaglutide 1 mg/dose (2 mg/1.5 1 mg SUBCUT DIRECTED 06/24/23 03/07/25 02/24/25 History mL) subcutaneous pen injector (Ozempic) aspirin 81 mg capsule 81 mg PO DAILY #90 caps 01/20/24 03/07/25 02/28/25 Rx Held on 08/30/24. Instructions: Resume on 09/01/24. lisinopril 2.5 mg tablet 2.5 mg PO DAILY 05/11/24 03/07/25 03/06/25 History meloxicam 15 mg tablet 15 mg PO DAILY #30 tabs 02/12/25 03/07/25 03/04/25 Rx desvenlafaxine succinate 100 mg 200 mg (2 x 100 mg) PO DAILY #180 03/02/25 03/07/25 03/07/25 Rx tablet,extended release 24 hr tabs (Pristiq) oxycodone 10 mg tablet 10 mg PO TID PRN Pain 03/05/25 03/07/25 03/06/25 History Allergies Allergy/AdvReac Type Severity Reaction Status Date / Time insect venom Allergy Severe ALGY-Anaphy Verified 03/05/25 11:17 laxis latex Allergy RASH, HIVES Verified 03/05/25 11:17 propoxyphene (From Allergy HIVES Verified 03/05/25 11:17 Darvocet-N) zonisamide (From Zonegran) AdvReac N/V Verified 03/05/25 11:17 [facility] Anesthesia Medical History Nicotine dependence, cigarettes, uncomplicated Peripheral arterial occlusive disease Psychiatric care Encounter for long-term use of opiate analgesic Major depressive disorder, recurrent, in partial remission Generalized anxiety disorder Localized pain of right shoulder joint Opioid contract exists Smoker Cervical disc disease Arthritis Cervical radiculopathy Neural foraminal stenosis of cervical spine Paresthesia and pain of both upper extremities Chronic lumbosacral pain Lumbar foraminal stenosis Spondylolisthesis, acquired Morbid obesity Long-term use of high-risk medication Lumbar radiculitis DDD (degenerative disc disease), lumbar Restless legs syndrome Bilateral chronic knee pain Risk for falls Surgical History S/P foot surgery S/P carpal tunnel release S/P cholecystectomy LAPAROSCOPIC 2010 S/P partial hysterectomy CANCER S/P shoulder surgery RIGHT S/P decompression of ulnar nerve DR PAUL 2008? LEFT SIDE Status post craniotomy 2004- SMALL TUMOR REMOVAL / DR PAUL Hx of removal of cyst RIGHT HIP/ DR PINEDA Family History Family/Other Lung disease ASTHMA Other Anemia Clotting disorder Diabetes Heart disease Hypertension Kidney disease Stroke Denies family history of Anesthesia complication Bleeding disorder Social History Smoking and tobacco/nicotine status: current every day tobacco/nicotine user cigarettes Packs smoked per day: 1 Years cigarettes smoked: 36 [ Other cigarette details: Started at age 15] Alcohol intake: never Substance/Drug Use: never
--- NOTE | 2025-03-07 06:19 | W.PM.OPSUD ---
Surgery/Procedure H&P Update DATE OF PROCEDURE: March 07, 2025 DATE H&P PERFORMED: 02/26/25 H&P UPDATE INFORMATION: I have reviewed H&P completed within last 30 days, I have examined patient prior to procedure and No changes to prior documentation PREOP DIAGNOSIS: Back pain PLANNED PROCEDURE: Operation Date: 03/07/25 07:30 Proposed Procedures p Lumbar Spine Decompression(Not Applicable) - Luis Manuel Delarosa DO
[2025-03-07] MEDS: ceFAZolin 2,000 mg SDV 2000 MG IVP (07:45)
[2025-03-07] MEDS: lidocaine-epi 2% PF 1:200,000 20 mL SDV XX (08:01)
--- NOTE | 2025-03-07 09:22 | PM.OP ---
Operative Report Date of procedure: March 07, 2025 Pre-op diagnosis: Lumbar stenosis with neurogenic claudication Post-op diagnosis: same Procedure done: 1. Revision L3/4 laminectomy with partial facetectomy 2. Revision L4/5 laminectomy with partial facetectomy Surgeon: Luis Manuel Delarosa DO Estimated blood loss (mL): 20 Procedure: 1. Revision L3/4 laminectomy with partial facetectomy 2. Revision L4/5 laminectomy with partial facetectomy Patient is brought to the operative suite. After undergoing anesthesia they are placed in the prone position. All areas of impingement are well padded. Patient is then prepped and draped in the normal sterile fashion. A skin incision is made over the L3/4 level. This is confirmed under c-arm guidance. A series of dilators are passed and the tubular retractor is docked on the L3 lamina. A bovie is used to clear the soft tissue off the lamina and the L 3/4 facet joint. Scar tissue dissected out. A high speed yusef is then used to perform the laminectomy and take down the medial aspect of the L3/4 facet joint. A kerrison rongeure was then used to take down the remaining lamina and smooth the edge of the laminectomy up to the point where the ligamentum flavum attaches. Attention was then brought to the medial aspect of the facet joint. The remaining medial aspect of the superior and inferior aspect of the facet joint were taken down with the kerrison from the pedicle of L3 to L 4. The facet joint had significant hypertrophy. Attention was then brought to the Ligamentum Flavum. The ligament was taken down from the lamina of L3 to L4 and out medially to the remaining facet joint. The ligament was scarred. The dura was then exposed. The dura was in good repair. The L3 nerve was then traced with a curette out the L3/4 foramen and found to be adequately decompressed. The L4 nerve was traced with a curette around the L4 pedicle. The lateral recess was opened with a kerrison helping to further decompress the L4 nerve. Wound is then irrigated copiously with saline and surgiflo is used to stop any bleeding. The tubular retractor is removed skin incision is made over the L4/5 level. This is confirmed under c-arm guidance. A series of dilators are passed and the tubular retractor is docked on the L4 lamina. A bovie is used to clear the soft tissue off the lamina and the L 4/5 facet joint. Scar tissue was dissected out. A high speed yusef is then used to perform the laminectomy and take down the medial aspect of the L 4/5 facet joint. A kerrison rongeure was then used to take down the remaining lamina and smooth the edge of the laminectomy up to the point where the ligamentum flavum attaches. Attention was then brought to the medial aspect of the facet joint. The remaining medial aspect of the superior and inferior aspect of the facet joint were taken down with the kerrison from the pedicle of L4 to L 5. The facet joint had significant hypertrophy. Attention was then brought to the Ligamentum Flavum. The ligament was taken down from the lamina of L4 to L5 and out medially to the remaining facet joint. The ligament was scarred. The dura was then exposed. The dura was in good repair. The L4 nerve was then traced with a curette out the L4/5 foramen and found to be adequately decompressed. The L5 nerve was traced with a curette around the L5 pedicle. The lateral recess was opened with a kerrison helping to further decompress the L5 nerve. Wound is then irrigated copiously with saline and surgiflo is used to stop any bleeding. The tubular retractor is removed and the wound is closed with vicryl and monocryl suture. Steri strips were applied. A sterile dressing is then placed. Patient was then placed in the supine position and transferred to the PACU in stable condition.
[2025-03-07] MEDS: oxyCODONE 5 mg IR Tab/Cap 10 MG PO (10:29)
--- NOTE | 2025-03-07 10:45 | ANE.PACU2 ---
Inpatient post-anesthesia follow up: Airway intact: Yes Vital signs: Temperature 97.8 F Pulse Rate 65 Respiratory Rate 16 Blood Pressure 114/68 Pulse Oximetry 95 Oxygen Delivery Me thod Room Air Oxygen Flow Rate 2 Fraction of Inspir ed Oxygen Hydration adequate: Yes Nausea and vomiting: No Pain level: 1 Mental status: Baseline
--- NOTE | 2025-03-07 14:40 | XR_ITS ---
WS: [id number] XR lumbar spine 1V [id number] REASON FOR EXAM: or pic, decompression FINDINGS: Surgical instrument overlying the left L4-L5 disc space, then the left L3-L4 disc space. XR/XR lumbar spine 1V [id number] IMPRESSION: Intraoperative lumbar level localization as above.
== END 2025-03-07 10:45 | disposition home or self-care (01) ==
PROVIDERS: PCP Family Medicine; Visit Provider Orthopaedic Surgery
PROC: (CPT 63005; principal; 2025-03-07 07:30)
DX: M48.062 Spinal stenosis, lumbar region with neurogenic claudication (principal); K21.9 Gastro-esophageal reflux disease without esophagitis; I10 Essential (primary) hypertension; E11.9 Type 2 diabetes mellitus without complications; J44.9 Chronic obstructive pulmonary disease, unspecified; F17.210 Nicotine dependence, cigarettes, uncomplicated; F32.9 Major depressive disorder, single episode, unspecified; M19.90 Unspecified osteoarthritis, unspecified site; E66.01 Morbid (severe) obesity due to excess calories; Z68.35 Body mass index [BMI] 35.0-35.9, adult; M51.369 Other intervertebral disc degeneration, lumbar region without mention of lumbar back pain or lower extremity pain; I70.213 Atherosclerosis of native arteries of extremities with intermittent claudication, bilateral legs; Z79.84 Long term (current) use of oral hypoglycemic drugs; Z79.82 Long term (current) use of aspirin
CPT/HCPCS: 63047; 63048; 36416; 72020; 76000; 82962; J0131; J0330; J0690; J1100; J1885; J2250; J2405; J2704; J3010; J3475; J3490; J7030; J9999

== ENCOUNTER → 2025-04-17 14:28 | Outpatient (BNVA) | payer MEDICARE, MEDICAID, SELFPAY | PROVIDERS: PCP Family Medicine; Visit Provider Orthopaedic Surgery | DX: Z98.890 Other specified postprocedural states (principal) | CPT/HCPCS: 99024 ==

== ENCOUNTER → 2025-05-07 12:30 | Outpatient (BNVA) | payer MEDICARE, MEDICAID, SELFPAY | PROVIDERS: PCP Family Medicine; Visit Provider Internal Medicine | DX: I77.9 Disorder of arteries and arterioles, unspecified (principal); I10 Essential (primary) hypertension; Z87.891 Personal history of nicotine dependence | CPT/HCPCS: 99214 ==

== ENCOUNTER 2025-05-17 12:15 | Outpatient (CLI) | payer MEDICARE, MEDICAID, SELFPAY | END 2025-05-17 12:16 | disposition home or self-care (01) | LOC: SPT 12:15 | PROVIDERS: PCP Family Medicine; Visit Provider Podiatrist Foot & Ankle Surgery | DX: Z46.89 Encounter for fitting and adjustment of other specified devices (principal); M76.61 Achilles tendinitis, right leg | CPT/HCPCS: L4397 ==

== ENCOUNTER 2025-05-18 10:05 | Outpatient (CLI) | payer MEDICARE, MEDICAID, SELFPAY ==
--- NOTE | 2025-05-18 10:33 | CT_ITS ---
WS: [id number] LDCT LUNG CANCER SCREENING TECHNIQUE: Noncontrast CT of the chest with coronal and sagittal reformatted images. CLINICAL INFORMATION: NICOTINE DEPENDENCE, SCREENING COMPARISON: 02/25/2024 DLP: 129.19 mGy.cm DIvol: Mean CTDIvol: 2.90 (mGy) All CT scans at [facility] use at least one of these dose optimization techniques: automated exposure control; mA and/or kV adjustment per patient size (includes targeted exams where dose is matched to clinical indication); or iterative reconstruction. FINDINGS: New suspicious solid nodule in the LEFT upper lobe at the lung apex measuring 12 mm.Surrounding spiculated margins. Recommend further evaluation with PET/CT. Additional several subcentimeter pulmonary nodules stable compared to previous. Largest again seen in the RIGHT lower lobe measuring 6 mm. Aortic calcification. No mediastinal or hilar lymphadenopathy. No axillary lymphadenopathy. Cholecystectomy. Adrenal glands are normal. Hypertrophic changes thoracic spine. CT/CT lung screening [id number] IMPRESSION: New solid nodule in the LEFT upper lobe at the lung apex measuring 12 mm suspic ious for neoplasm. Surrounding irregular spiculated margins. Recommend further evaluation with PET/CT and pulmonology consultation. LUNG-RADS: 4B-Suspicious FOLLOW UP: PET/CT recommended
--- NOTE | 2025-05-18 12:15 | USR_ITS ---
PROCEDURE INFORMATION: Exam: US Duplex Bilateral Lower Extremity Arteries Exam date and time: 05/18/2025 10:32 AM Age: 54 years old Clinical indication: Pain; Leg, lower; Bilateral; Prior surgery; Surgery date: 6+ months; Surgery type: PT states that she has a left iliac stent; Additional info: Bilateral leg pain TECHNIQUE: Imaging protocol: Real-time ultrasound scan of the arteries of the bilateral lower extremities with 2-D bashir scale, color Doppler flow and spectral waveform analysis. Images documented and saved. COMPARISON: CT abdomen pelvis wo con [id number] 01/19/2024 03:30 PM FINDINGS: Right common femoral artery: No occlusion or significant stenosis. Biphasic waveform. Right superficial femoral artery: No occlusion or significant stenosis. Biphasic waveform. Right popliteal artery: No occlusion or significant stenosis. Biphasic waveform. Right calf/foot arteries: No occlusion or significant stenosis in the visualized arteries. Biphasic waveforms. Dorsalis pedis artery is patent. Left common femoral artery: No occlusion or significant stenosis. Biphasic waveform. Left superficial femoral artery: No occlusion or significant stenosis. Biphasic waveform. Left popliteal artery: No occlusion or significant stenosis. Biphasic waveform. Left calf/foot arteries: No occlusion or significant stenosis in the visualized arteries. Biphasic waveforms. Dorsalis pedis artery is patent. US/[place] [id number] IMPRESSION: No stenosis or occlusion. Biphasic waveforms.
== END 2025-05-18 10:06 | disposition home or self-care (01) ==
PROVIDERS: PCP Family Medicine; Visit Provider Family Medicine
DX: Z87.891 Personal history of nicotine dependence (principal)
CPT/HCPCS: 71271; 93925

== ENCOUNTER → 2025-05-29 10:02 | Outpatient (BNVA) | payer MEDICARE, MEDICAID, SELFPAY | PROVIDERS: PCP Family Medicine; Visit Provider Orthopaedic Surgery | DX: Z98.890 Other specified postprocedural states (principal) | CPT/HCPCS: 99024 ==

== ENCOUNTER 2025-06-01 13:56 | Outpatient (CLI) | payer MEDICARE, MEDICAID, SELFPAY ==
--- NOTE | 2025-06-01 14:00 | PETR_ITS ---
PROCEDURE INFORMATION: Exam: PET/CT Skull Base to Mid-thigh Exam date and time: 06/01/2025 2:49 PM Age: 54 years old Clinical indication: Abnormal findings; New solid nodule in the left upper lobe at the lung apex measuring 12 mm suspicious for neoplasm; HX of uterine cancer; Additional info: Solitary pulmonary nodule LABS AND CLINICAL REPORTS: Glucose: 133 mg/dl Treatment strategy for malignancy (PET staging): Initial Staging (PI) TECHNIQUE: Imaging protocol: Following at least four-hour fasting and following the injection of radiopharmaceutical, low dose CT images were obtained. Then, PET images were obtained. Attenuation corrected images were constructed using the CT scan. Fused images of PET and CT were reviewed. The standardized uptake values (SUV) reported below are maximum values within a region of interest, expressed in gm/ml. Exam includes orbital meatal line to mid-thigh. SUV normalization method: BodyWeight Radiopharmaceutical: 11.9 mCi F-18 FDG (Fluorodeoxyglucose), IV. Time of imaging post radiopharmaceutical administration: 45 minutes Injection site: right ac COMPARISON: 1. CT lung screening [id number] 05/18/2025 11:[address] abdomen pelvis wo con [id number] 01/19/2024 3:30 PM FINDINGS: Brain: Visualized brain has normal physiologic uptake. Pharynx: No abnormal uptake. Larynx: No abnormal uptake. Lungs, pleura and trachea: Stable 1.3 cm left upper lobe nodule on axial image 77 shows SUV max 1.9. Non FDG avid 4 mm right basilar nodule on axial image 116 is stable. Mild dependent atelectasis. Heart: Normal physiologic uptake. Coronary arteries: Mild coronary artery calcification. Mediastinal space: No abnormal uptake. Liver: No abnormal uptake. Gallbladder and biliary ducts: No abnormal uptake. Prior cholecystectomy. Pancreas: No abnormal uptake. Spleen: No abnormal uptake. Adrenal glands: No abnormal uptake. Kidneys and ureters: Normal physiologic uptake. Few stable bilateral subcentimeter fat density lesions compatible with angiomyolipomas. Stomach and bowel: No abnormal uptake. Reproductive: The uterus is surgically absent. Vasculature: No abnormal uptake. Mild systemic atherosclerotic calcification without aortic aneurysm. Left common iliac artery stent. Lymph nodes: No abnormal uptake. No lymphadenopathy in the head, neck, chest, abdomen, pelvis, and extremities. Skeleton: Interval left L3 and L4 laminotomies with associated FDG uptake and overlying subcutaneous scarring with non FDG avid 2.5 x 1.3 cm fluid density focus likely representing seroma. Bilateral pubic bone FDG uptake without underlying CT abnormality is suspected benign. Stable small nonaggressive sclerotic focus at the left L3 vertebral body. Degenerative change along the spine, acromioclavicular and sacroiliac joints. Soft tissues: No abnormal uptake in the visualized head, neck, chest, abdomen, pelvis, and extremities. Redemonstrated bilateral abdominal wall intramuscular lipomas. METRICS: Mediastinal blood pool: SUV mean 2.1 Liver uptake: SUV mean 2.8 PET/PET skull to thigh INIT [id number] IMPRESSION: 1. Stable 1.3 cm left upper lobe pulmonary nodule with very low-level FDG uptake below mediastinal blood pool favoring benignity. 2. Stable non FDG avid 4 mm right basilar pulmonary nodule is also likely benign. 3. Additional chronic and incidental findings as above.
== END 2025-06-01 13:57 | disposition home or self-care (01) ==
LOC: RAD 13:58
PROVIDERS: PCP Family Medicine; Visit Provider Family Medicine
DX: R91.1 Solitary pulmonary nodule (principal); Z85.42 Personal history of malignant neoplasm of other parts of uterus; J98.11 Atelectasis; I25.84 Coronary atherosclerosis due to calcified coronary lesion; Z90.49 Acquired absence of other specified parts of digestive tract; N28.89 Other specified disorders of kidney and ureter; Z90.710 Acquired absence of both cervix and uterus; I70.0 Atherosclerosis of aorta; Z95.820 Peripheral vascular angioplasty status with implants and grafts; M46.1 Sacroiliitis, not elsewhere classified; M96.1 Postlaminectomy syndrome, not elsewhere classified; R93.7 Abnormal findings on diagnostic imaging of other parts of musculoskeletal system
CPT/HCPCS: 78815; A9552

== ENCOUNTER → 2025-08-14 09:39 | Outpatient (BNVA) | payer MEDICARE, MEDICAID, SELFPAY | PROVIDERS: PCP Family Medicine; Visit Provider Podiatrist Foot & Ankle Surgery | DX: M25.872 Other specified joint disorders, left ankle and foot (principal); M76.60 Achilles tendinitis, unspecified leg | CPT/HCPCS: 99213 ==